=== PATIENT | female | born 1960 | race Caucasian/White ===

== ENCOUNTER 2016-10-13 04:52 | Emergency (ER) | payer BC ==
--- NOTE | 2016-10-13 06:17 | ER Document Report ---
[id number] Mode of Arrival: Ambulatory Information source: Patient Notes: 56-year-old female TRAVEL OUTSIDE OF THE [place] IN LAST 30 DAYS: No - HPI Onset: Just prior to arrival Onset/Duration: Sudden Quality of pain: No pain Severity: Mild Pain Level: Denies Associated symptoms: Weakness Exacerbated by: Denies Relieved by: Denies Similar symptoms previously: Yes Recently seen / treated by doctor: Yes - Related Data Allergies/Adverse Reactions: azithromycin [From Zithromax] Allergy (Unknown, Verified 06/10/16 08:25) Past Medical History - Social History Smoking Status: Never Smoker Cigarette use (# per day): No Chew tobacco use (# tins/day): No Smoking Education Provided: No Family History: CAD, Hypertension, Malignancy Patient has suicidal ideation: No Patient has homicidal ideation: No - Past Medical History Cardiac Medical History: Reports: Hx Coronary Artery Disease - Cardiac catheter showed 50% stenosis, Hx Heart Attack, Hx Hypercholesterolemia Denies: Hx Congestive Heart Failure, Hx DVT, Hx Pulmonary Embolism Pulmonary Medical History: Denies: Hx Asthma, Hx COPD Neurological Medical History: Denies: Hx Seizures Endocrine Medical History: Reports: Hx Diabetes Mellitus Type 1, Hx Diabetes Mellitus Type 2, Hx Hypothyroidism. Denies: Hx Hyperthyroidism Renal/ Medical History: Reports: Hx Ovarian Cysts - left side Malignancy Medical History: GI Medical History: Reports: Hx Gastroesophageal Reflux Disease. Denies: Hx Cirrhosis, Hx Hepatitis Musculoskeltal Medical History: Denies Hx Arthritis, Reports Hx Musculoskeletal Deformity, Reports Hx Musculoskeletal Trauma Skin Medical History: Denies Hx Eczema, Denies Hx Psoriasis Psychiatric Medical History: Reports: Hx Depression Traumatic Medical History: Reports: Hx Fractures - left wrist and toes and right knee Infectious Medical History: Denies: Hx Hepatitis Past Surgical History: Reports: Hx Cardiac Catheterization, Hx Section , Hx Gynecologic Surgery - Left oophorectomy, Hx Tubal Ligation - Immunizations Immunizations up to date: Yes Hx Diphtheria, Pertussis, Tetanus Vaccination: Yes - <10 years Hx Pneumococcal Vaccination: 07/17/11 Review of Systems - Review of Systems Notes: REVIEW OF SYSTEMS: CONSTITUTIONAL : Denies fever, chills, or sweats. Denies recent illness. EENT: Denies eye, ear, throat, or mouth pain or symptoms. Denies nasal or sinus congestion or discharge. Denies throat, tongue, or mouth swelling or difficulty swallowing. CARDIOVASCULAR: Denies chest pain. Denies palpitations or racing or irregular heart beat. Denies ankle edema. RESPIRATORY: Denies cough, cold, or chest congestion. Denies shortness of breath, difficulty breathing, or wheezing. GASTROINTESTINAL: Denies abdominal pain or distention. Denies nausea, vomiting , or diarrhea. Denies blood in vomitus, stools, or per rectum. Denies black, tarry stools. Denies constipation. GENITOURINARY: Denies difficulty urinating, painful urination, burning, frequency, blood in urine, or discharge. FEMALE GENITOURINARY: Denies vaginal bleeding, heavy or abnormal periods, irregular periods. Denies vaginal discharge or odor. MUSCULOSKELETAL: Denies back or neck pain or stiffness. Denies joint pain or swelling. SKIN: Denies rash, lesions or sores. HEMATOLOGIC : Denies easy bruising or bleeding. LYMPHATIC: Denies swollen, enlarged glands. NEUROLOGICAL: Admits weakness PSYCHIATRIC: Denies anxiety or stress. Denies depression, suicidal ideation, or homicidal ideation. ALL OTHER SYSTEMS REVIEWED AND NEGATIVE. Dictation was performed using [employer] voice recognition software PHYSICAL EXAMINATION: GENERAL: Well-appearing, well-nourished and in no acute distress. HEAD: Atraumatic, normocephalic. EYES: Pupils equal round and reactive to light, extraocular movements intact, conjunctiva are normal. ENT: Nares patent, oropharynx clear without exudates. Moist mucous membranes. NECK: Normal range of motion, supple without lymphadenopathy LUNGS: Breath sounds clear to auscultation bilaterally and equal. No wheezes rales or rhonchi. HEART: Regular rate and rhythm without murmurs ABDOMEN: Soft, nontender, nondistended abdomen. No guarding, no rebound. No masses appreciated. Insulin pump sensor an insulin pump noted which is turned off Female : deferred Musculoskeletal: Normal range of motion, no pitting or edema. No cyanosis. NEUROLOGICAL: Cranial nerves grossly intact. Normal speech, normal gait. Normal sensory, motor exams PSYCH: Normal mood, normal affect. SKIN: Warm, Dry, normal turgor, no rashes or lesions noted. Physical Exam - Vital signs Vitals: Temp Pulse Resp BP Pulse Ox 97.4 F 83 16 127/68 H 99 10/13/16 04:58 10/13/16 04:58 10/13/16 04:58 10/13/16 04:58 10/13/16 04:58 Course - Re-evaluation Re-evalutation: 10/13/16 06:14 It appears patient followed her physician's instructions and bolster self insulin which she normally does not do, found her with a glucose of 20, turned off her insulin pump gave her juice patient has been fed in the emergency department, she is not on any long-acting anti-diabetic medications. Patient states her ride is here and she wishes to go home and she promises she' ll call her physician when the office opens at 8 AM I will discharge the patient at her request, she states she must return immediately if her pressure continues to drop with is any other concerns After performing a Medical Screening Examination, I estimate there is LOW risk for ACUTE CORONARY SYNDROME, RESPIRATORY FAILURE, SEPSIS OR MENINGITIS, thus I consider the discharge disposition reasonable. The patient and I have discussed the diagnosis and risks, and we agree with discharging home with close follow- up. We also discussed returning to the Emergency Department immediately if new or worsening symptoms occur. We have discussed the symptoms which are most concerning (e.g., changing or worsening pain, trouble swallowing or breathing, neck stiffness, fever) that necessitate immediate return. 10/13/16 15:39 - Vital Signs Vital signs: Temp Pulse Resp BP Pulse Ox 97.4 F 84 16 124/62 100 10/13/16 04:58 10/13/16 06:17 10/13/16 06:17 10/13/16 06:17 10/13/16 06:17 - Laboratory Laboratory results interpreted by me: 10/13/16 10/13/16 05:00 06:10 POC Glucose 64 L 197 H Discharge - Discharge Clinical Impression: Hypoglycemia Complication of insulin pump Qualifiers: Device complication type: mechanical Mechanical complication type: other Encounter type: initial encounter Qualified Code(s): T85.694A - Other mechanical complication of insulin pump, initial encounter Condition: Stable Disposition: HOME, SELF-CARE Additional Instructions: Please speak with your physician today or return immediately if there is any other concerns at all Referrals: GURINDER MENG MD [Primary Care Provider] - Follow up as needed
[2016-10-13 06:23] VITALS: BP 124/62
== END 2016-10-13 06:32 | disposition home or self-care (01) ==
LOC: ER 04:52
DX: E11.649 Type 2 diabetes mellitus with hypoglycemia without coma (principal); T85.694A Other mechanical complication of insulin pump, initial encounter; R53.1 Weakness; Z79.4 Long term (current) use of insulin; Z88.3 Allergy status to other anti-infective agents; Z96.41 Presence of insulin pump (external) (internal); E78.00 Pure hypercholesterolemia, unspecified; I25.10 Atherosclerotic heart disease of native coronary artery without angina pectoris; I25.2 Old myocardial infarction; Z98.51 Tubal ligation status
CPT/HCPCS: 82962; 99284

== ENCOUNTER 2016-11-01 10:01 | Emergency (ER) | payer MEDICARE, BC ==
[2016-11-01] MEDS ORDERED: ONDANSETRON 4 MG TAB.RAPDIS PO ONE (11:39)
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
[2016-11-01] MEDS ORDERED: NORMAL SALINE 1000 ML 1,000 ML IV ONE ×2 (12:02→14:54)
[2016-11-01 12:24] LABS: HEMATOCRIT 40.4 % (36.0-47.0); HEMOGLOBIN 13.7 g/dL (12.0-15.5); HGB HCT DIFFERENCE 0.7; MEAN CORPUSCULAR HEMOGLOBIN 30.9 pg (27.0-33.4); MEAN CORPUSCULAR HGB CONC 33.8 g/dL (32.0-36.0); MEAN CORPUSCULAR VOLUME 91 fl (80-97); RED BLOOD COUNT 4.43 10^6/uL (3.72-5.28); RED CELL DISTRIBUTION WIDTH 13.7 % (11.5-14.0); WHITE BLOOD COUNT 5.4 10^3/uL (4.0-10.5)
[2016-11-01 12:43] LABS: BASOPHILS % (MANUAL) 1 % (0-2); EOSINOPHILS % (MANUAL) 1 % (0-6); LYMPHOCYTES % (MANUAL) 31 % (13-45); TOTAL CELLS COUNTED 100
[2016-11-01 12:44] LABS: RBC MORPHOLOGY COMMENT NORMO-CYTIC/CHROMIC
[2016-11-01 12:47] LABS: ALANINE AMINOTRANSFERASE 28 U/L (9-52); ALBUMIN 3.9 g/dL (3.5-5.0); ALKALINE PHOSPHATASE 76 U/L (38-126); ANION GAP 13 (5-19); ASPARTATE AMINO TRANSFERASE 42 U/L (14-36); BILIRUBIN,TOTAL 1.2 mg/dL (0.2-1.3); BLOOD UREA NITROGEN 13 mg/dL (7-20); CALCIUM 9.2 mg/dL (8.4-10.2); CARBON DIOXIDE 22 mmol/L (22-30); CHLORIDE 99 mmol/L (98-107); CREATININE RESULT 0.71 mg/dL (0.52-1.25); GLUCOSE 119 mg/dL (75-110); LIPASE 35.7 U/L (23-300); POTASSIUM 4.5 mmol/L (3.6-5.0); SODIUM 133.5 mmol/L (137-145); TOTAL PROTEIN 6.5 g/dL (6.3-8.2)
[2016-11-01 14:34] LABS: VENOUS BLOOD BASE EXCESS -1.3 mmol/L; VENOUS BLOOD HCO3 23.4 mmol/L (20-32); VENOUS BLOOD PCO2 39.2 mmHg (35-63); VENOUS BLOOD PH 7.39 (7.30-7.42)
[2016-11-01 15:19] LABS: APPEARANCE,URINE CLEAR; BILIRUBIN,URINE NEGATIVE (NEGATIVE); GLUCOSE, URINE >=500 mg/dL (NEGATIVE); KETONES,URINE 20 mg/dL (NEGATIVE); LEUKOCYTE ESTERASE,URINE NEGATIVE (NEGATIVE); NITRITE,URINE NEGATIVE (NEGATIVE); PROTEIN,URINE NEGATIVE (NEGATIVE); URINE SPECIFIC GRAVITY 1.014; UROBILINOGEN,URINE NEGATIVE mg/dL (<2.0)
[2016-11-01] MEDS ORDERED: DEXTROSE 50%-WATER 25 GM/50 ML DISP.SYRIN IV ONE ×2 (16:13)
[2016-11-01] MEDS ORDERED: ONDANSETRON HCL INJ/PF 4 MG/2 ML SDV ONE (16:17)
[2016-11-01] MEDS ORDERED: ONDANSETRON HCL INJ/PF 4 MG/2 ML SDV IV ONE (16:17)
[2016-11-01 17:52] VITALS: BP 106/61
== END 2016-11-01 17:45 | disposition home or self-care (01) ==
LOC: ER 10:01
DX: R11.2 Nausea with vomiting, unspecified (principal); E10.9 Type 1 diabetes mellitus without complications; E27.1 Primary adrenocortical insufficiency; K21.9 Gastro-esophageal reflux disease without esophagitis; R53.1 Weakness; R53.81 Other malaise; I25.10 Atherosclerotic heart disease of native coronary artery without angina pectoris; E78.00 Pure hypercholesterolemia, unspecified; E03.9 Hypothyroidism, unspecified; I25.2 Old myocardial infarction; Z98.51 Tubal ligation status; Z96.41 Presence of insulin pump (external) (internal); Z88.3 Allergy status to other anti-infective agents
CPT/HCPCS: 99284; 96361; 51701; 96374; 96375; 36415; 82962; 83690; 85025; 80053; 81001; 82803; J3490; A9270; J2405; J7030; S0119

== ENCOUNTER 2016-12-03 14:30 | Inpatient (IN) | payer MEDICARE, BC ==
--- NOTE | 2016-12-03 14:53 | ER Document Report ---
ED Medical Screen (RME) - General Chief Complaint: Nausea/Vomiting Stated Complaint: WEAKNESS TRAVEL OUTSIDE OF THE [place] IN LAST 30 DAYS: No - HPI Patient complains to provider of: nausea vomiting elevated blood sugar Notes: 12/03/16 14:52 Patient with history of asthma disease and multiple visits for DKA. Patient will sugar greater than 500 patient tachycardic hypotensive here patient will be made a yellow and placed back in the main ER - Related Data Allergies/Adverse Reactions: azithromycin [From Zithromax] Allergy (Unknown, Verified 12/03/16 14:39) Past Medical History - Past Medical History Cardiac Medical History: Reports: Hx Coronary Artery Disease - Cardiac catheter showed 50% stenosis, Hx Heart Attack, Hx Hypercholesterolemia Denies: Hx Congestive Heart Failure, Hx DVT, Hx Pulmonary Embolism Pulmonary Medical History: Denies: Hx Asthma, Hx COPD Neurological Medical History: Denies: Hx Seizures Endocrine Medical History: Reports: Hx Diabetes Mellitus Type 1, Hx Diabetes Mellitus Type 2, Hx Hypothyroidism. Denies: Hx Hyperthyroidism Renal/ Medical History: Reports: Hx Ovarian Cysts - left side. Denies: Hx Peritoneal Dialysis Malignancy Medical History: GI Medical History: Reports: Hx Gastroesophageal Reflux Disease. Denies: Hx Cirrhosis, Hx Hepatitis Musculoskeltal Medical History: Denies Hx Arthritis, Reports Hx Musculoskeletal Deformity, Reports Hx Musculoskeletal Trauma Skin Medical History: Denies Hx Eczema, Denies Hx Psoriasis Psychiatric Medical History: Reports: Hx Depression Traumatic Medical History: Reports: Hx Fractures - left wrist and toes and right knee Infectious Medical History: Denies: Hx Hepatitis Past Surgical History: Reports: Hx Cardiac Catheterization, Hx Section , Hx Gynecologic Surgery - Left oophorectomy, Hx Tubal Ligation - Immunizations Immunizations up to date: Yes Hx Diphtheria, Pertussis, Tetanus Vaccination: Yes - <10 years Review of Systems - Review of Systems Constitutional: Other - Nausea vomiting elevated blood sugar Physical Exam - Vital signs Vitals: Temp Pulse Resp BP 97.5 F 111 H 19 77/51 L 12/03/16 14:41 12/03/16 14:41 12/03/16 14:41 12/03/16 14:41 - Cardiovascular Rhythm: Tachycardia Heart sounds: Normal auscultation Course - Vital Signs Vital signs: Temp Pulse Resp BP Pulse Ox 97.5 F 111 H 19 77/51 L 12/03/16 14:41 12/03/16 14:41 12/03/16 14:41 12/03/16 14:41
[2016-12-03 15:37] LABS: ABSOLUTE BASOPHILS # (AUTO) 0.1 10^3/uL (0.0-0.2); ABSOLUTE LYMPHOCYTES (AUTO) 1.1 10^3/uL (0.5-4.7); ABSOLUTE MONOCYTES (AUTO) 0.6 10^3/uL (0.1-1.4); ABSOLUTE NEUT (AUTO) 14.7 10^3/uL (1.7-8.2); BASOPHILS % (AUTO) 0.3 % (0-2); EOSINOPHILS % (AUTO) 0.2 % (0-6); HEMATOCRIT 39.3 % (36.0-47.0); HEMOGLOBIN 12.6 g/dL (12.0-15.5); HGB HCT DIFFERENCE -1.5; LYMPHOCYTES % (AUTO) 6.4 % (13-45); MEAN CORPUSCULAR VOLUME 97 fl (80-97); MONOCYTES % (AUTO) 3.7 % (3-13); RED BLOOD COUNT 4.05 10^6/uL (3.72-5.28); RED CELL DISTRIBUTION WIDTH 13.7 % (11.5-14.0); SEGMENTED NEUTROPHILS % (AUTO) 89.4 % (42-78); WHITE BLOOD COUNT 16.5 10^3/uL (4.0-10.5)
[2016-12-03 15:40] LABS: VENOUS BLOOD BASE EXCESS -9.8 mmol/L; VENOUS BLOOD HCO3 17.7 mmol/L (20-32); VENOUS BLOOD PCO2 44.9 mmHg (35-63); VENOUS BLOOD PH 7.21 (7.30-7.42)
[2016-12-03 15:45] LABS: PROTHROMBIN TIME 13.2 SEC (11.4-15.4)
[2016-12-03 15:57] LABS: ALANINE AMINOTRANSFERASE 33 U/L (9-52); ALBUMIN 3.7 g/dL (3.5-5.0); ALKALINE PHOSPHATASE 73 U/L (38-126); ASPARTATE AMINO TRANSFERASE 44 U/L (14-36); BILIRUBIN,DIRECT 0.4 mg/dL (0.0-0.4); BILIRUBIN,TOTAL 1.1 mg/dL (0.2-1.3); BLOOD UREA NITROGEN 12 mg/dL (7-20); CALCIUM 9.5 mg/dL (8.4-10.2); CREATINE KINASE 31 U/L (30-135); CREATININE RESULT 0.72 mg/dL (0.52-1.25); LIPASE 49.2 U/L (23-300); MAGNESIUM 1.7 mg/dL (1.6-2.3); POTASSIUM 4.7 mmol/L (3.6-5.0); TOTAL PROTEIN 5.7 g/dL (6.3-8.2)
--- NOTE | 2016-12-03 16:01 | ER Document Report ---
ED General - General Mode of Arrival: Ambulatory Information source: Patient TRAVEL OUTSIDE OF THE [place] IN LAST 30 DAYS: No - HPI Patient complains to provider of: Abdominal pain and Vomiting Onset: This afternoon Associated symptoms: Other - see notes above <WILLIS GUERRA - Last Filed: 12/03/16 18:18> <JL MAC - Last Filed: 12/03/16 19:34> - General Chief Complaint: Nausea/Vomiting Stated Complaint: WEAKNESS Notes: 56 year old female with history of Celiac's and Arthur's disease presents to the ED complaining of vomiting and abdominal pain that started earlier today. Patient explains that 2 days ago, she was seen by EMT because of hypoglycemia. Yesterday, the patient began to feel bad, but woke up this morning better. Earlier this afternoon, the patient suddenly started having coughing spells and vomiting episodes secondary to the coughing. Patient denies dysuria or back pain. Patient explains that this might be an addisonian crisis. (WILLIS GUERRA) - Related Data Allergies/Adverse Reactions: azithromycin [From Zithromax] Allergy (Unknown, Verified 12/03/16 14:39) Past Medical History - General Information source: Patient - Social History Smoking Status: Unknown if Ever Smoked Family History: CAD, Hypertension, Malignancy Patient has suicidal ideation: No Patient has homicidal ideation: No - Past Medical History Cardiac Medical History: Reports: Hx Coronary Artery Disease - Cardiac catheter showed 50% stenosis, Hx Heart Attack, Hx Hypercholesterolemia Pulmonary Medical History: Endocrine Medical History: Reports: Hx Diabetes Mellitus Type 1, Hx Diabetes Mellitus Type 2, Hx Hypothyroidism, Other - Arthur's Disease Renal/ Medical History: Reports: Hx Ovarian Cysts - left side Malignancy Medical History: GI Medical History: Reports: Hx Gastroesophageal Reflux Disease Musculoskeltal Medical History: Reports Hx Musculoskeletal Deformity, Reports Hx Musculoskeletal Trauma Psychiatric Medical History: Reports: Hx Depression Traumatic Medical History: Reports: Hx Fractures - left wrist and toes and right knee Infectious Medical History: Past Surgical History: Reports: Hx Cardiac Catheterization, Hx Section , Hx Gynecologic Surgery - Left oophorectomy, Hx Tubal Ligation - Immunizations Immunizations up to date: Yes Hx Diphtheria, Pertussis, Tetanus Vaccination: Yes - <10 years Hx Pneumococcal Vaccination: 07/17/11 <WILLIS GUERRA - Last Filed: 12/03/16 18:18> <JL MAC - Last Filed: 12/03/16 19:34> - Medical History Notes: History of Celiac Disease (WILLIS GUERRA) Review of Systems - Review of Systems Constitutional: No symptoms reported EENT: No symptoms reported Cardiovascular: No symptoms reported Respiratory: See HPI, Cough Gastrointestinal: See HPI, Abdominal pain, Vomiting Genitourinary: No symptoms reported. denies: Dysuria, Flank pain Female Genitourinary: No symptoms reported Musculoskeletal: No symptoms reported. denies: Back pain Skin: No symptoms reported Hematologic/Lymphatic: No symptoms reported Neurological/Psychological: No symptoms reported -: Yes All other systems reviewed and negative <WILLIS GUERRA - Last Filed: 12/03/16 18:18> Physical Exam - Vital signs Interpretation: Hypotensive - General General appearance: Alert In distress: None - HEENT Head: Normocephalic, Atraumatic Eyes: Normal Extraocular movements intact: Yes Pupils: PERRL Mucous membranes: Dry - Respiratory Respiratory status: No respiratory distress Breath sounds: Normal - Cardiovascular Rhythm: Regular Heart sounds: Normal auscultation - Abdominal Inspection: Normal - Back Back: Normal - Extremities General upper extremity: Normal inspection, Normal ROM General lower extremity: Normal inspection, Normal ROM - Neurological Neuro grossly intact: Yes Cognition: Normal Orientation: AAOx4 Covert Coma Scale Eye Opening: Spontaneous Covert Coma Scale Verbal: Oriented Covert Coma Scale Motor: Obeys Commands Covert Coma Scale Total: 15 Speech: Normal - Psychological Associated symptoms: Normal affect, Normal mood - Skin Skin Temperature: Warm Skin Moisture: Dry Skin Color: Pale - Plascencia colored <WILLIS GUERRA - Last Filed: 12/03/16 18:18> Course - Laboratory Result Diagrams: 12/03/16 15:05 12/03/16 15:05 - Consults Dr. Vasquez Time consulted: 16:40 Dr. More Time consulted: 16:42 <WILLIS GUERRA - Last Filed: 12/03/16 18:18> - Laboratory Result Diagrams: 12/03/16 15:05 12/03/16 15:05 <JL MAC - Last Filed: 12/03/16 19:34> - Re-evaluation Re-evalutation: 12/03/16 Patient is a 56-year-old female who presents with hyperglycemia and hypotension. Patient with history of Craig's. Patient had a peripheral line in place, IV fluids initiated, and central line placed by general surgery in consult. Patient was discussed with the hospitalist service and will require ICU admission. Solu-Cortef ordered. Insulin will be started after central line is placed and patient has received her fluid bolus. Patient is awake, alert, conversive, and does not appear as sick as her blood work with implied. Patient was discussed with Dr. Vasquez and will be admitted to the ICU. (JL MAC) - Vital Signs Vital signs: Temp Pulse Resp BP Pulse Ox 97.5 F 111 H 22 H 124/74 98 12/03/16 14:41 12/03/16 14:41 12/03/16 18:01 12/03/16 17:48 12/03/16 17:48 - Laboratory Laboratory results interpreted by me: 12/03/16 12/03/16 12/03/16 15:05 15:05 15:05 WBC 16.5 H Seg Neutrophils % 89.4 H Lymphocytes % 6.4 L Absolute Neutrophils 14.7 H VBG pH 7.21 L VBG HCO3 17.7 L Sodium 136.9 L Carbon Dioxide 14 L Anion Gap 22 H Glucose 665 H* Lactic Acid AST 44 H Total Protein 5.7 L 12/03/16 15:05 WBC Seg Neutrophils % Lymphocytes % Absolute Neutrophils VBG pH VBG HCO3 Sodium Carbon Dioxide Anion Gap Glucose Lactic Acid 4.7 H AST Total Protein - Consults Dr. Vasquez Reason for consultation: 12/03/16 16:40 Patient was discussed with Dr. Vasquez and agrees to admit the patient to ICU. (WILLIS GUERRA) Dr. More Reason for consultation: 12/03/16 16:42 Patient was discussed with Dr. More and explained that the patient has a line in her foot (history of diabetes), but will require a central line. Dr. More agrees to do the central line. (WILLIS GUERRA) Critical Care Note - Critical Care Note Total time excluding time spent on procedures (mins): 60 - evaluation and management of hypotension, adrenal crisis, hyperglycemia, coordination of admission, coordination with surgeon, counseling of patient <JL MAC - Last Filed: 12/03/16 19:34> Discharge <WILLIS GUERRA - Last Filed: 12/03/16 18:18> - Discharge Admitting Provider: Nikos Pedro Unit Admitted: ICU <JL MAC - Last Filed: 12/03/16 19:34> - Discharge Clinical Impression: Craig disease, Hyperglycemia Hypotension (arterial) Qualifiers: Hypotension type: other hypotension type Qualified Code(s): I95.89 - Other hypotension Diabetes mellitus type I Qualifiers: Diabetes mellitus complication status: with ketoacidosis Diabetes mellitus complication detail: without coma Qualified Code(s): E10.10 - Type 1 diabetes mellitus with ketoacidosis without coma Nausea and vomiting Qualifiers: Vomiting type: unspecified Vomiting Intractability: non-intractable Qualified Code(s): R11.2 - Nausea with vomiting, unspecified Condition: Stable Disposition: ADMITTED INPATIENT Scribe Attestation: 12/03/16 19:34 I personally performed the services described in the documentation, reviewed and edited the documentation which was dictated to the scribe in my presence, and it accurately records my words and actions. (JL MAC) Scribe Documentation - Scribe Written by Karen:: Karen Ramirez, 12/03/2016 1733 acting as scribe for :: Jesse <WILLIS GUERRA - Last Filed: 12/03/16 18:18>
[2016-12-03 16:11] LABS: CREATINE KINASE MB < 0.22 ng/mL (<4.55); TROPONIN I < 0.012 ng/mL
[2016-12-03 16:14] LABS: CARBON DIOXIDE 14 mmol/L (22-30); CHLORIDE 101 mmol/L (98-107); SODIUM 136.9 mmol/L (137-145)
[2016-12-03 16:19] LABS: ANION GAP 22 (5-19)
[2016-12-03 16:22] LABS: GLUCOSE 665 mg/dL (75-110)
[2016-12-03] MEDS ORDERED: HYDROCORTISONE SOD SUCCINATE INJ/PF 100 MG/2 ML SDV IV ONE (16:25)
[2016-12-03] MEDS: NORMAL SALINE 1000 ML 1,000 ML IV PRN ×2 (16:43→17:50)
[2016-12-03] MEDS ORDERED: NORMAL SALINE 1000 ML 2,000 ML IV ONE (17:18)
[2016-12-03] MEDS ORDERED: GLUCAGON,HUMAN RECOMB 1 MG INJ IM PRN (17:19)
[2016-12-03] MEDS ORDERED: NORMAL SALINE 100 ML with INSULIN REGULAR, HUMAN 100 UNIT IV PRN ×2 (17:19)
[2016-12-03] MEDS ORDERED: DEXTROSE 50%-WATER 25 GM/50 ML DISP.SYRIN IV PRN ×2 (17:19)
[2016-12-03] MEDS ORDERED: DEXTROSE 40% GEL 15 GM TUBE PO PRN ×2 (17:19)
[2016-12-03] MEDS ORDERED: NORMAL SALINE 1000 ML 1,000 ML IV PRN (17:19)
--- NOTE | 2016-12-03 17:40 | PDOC H&P ---
History of Present Illness Admission Date/PCP: 12/03/16 17:22 GURINDER MENG MD Patient complains of: vomiting generalised weakness History of Present Illness: TAMAR PAULSON is a 56 year old female with history of Diabetes type I , panhypopituitarism and Arthur's disease presents to the ED complaining of vomiting and abdominal pain that started earlier today. Patient explains that 2 days ago, she was seen by EMT because of hypoglycemia. Yesterday, the patient began to feel bad, but woke up this morning better. Earlier this afternoon, the patient suddenly started having coughing spells and vomiting episodes secondary to the coughing. Patient denies dysuria or back pain. Upon evaluation in the ED she was profoundly hypotensive with a blood sugar over 600 and metabolic acidosis She was subsequently admitted to ICU Hydrocortisone , IV fluids and an insulin drip were initiated Past Medical History Cardiac Medical History: Reports: Coronary Artery Disease - Cardiac catheter showed 50% stenosis, Myocardial Infarction, Hyperlipidema Denies: Congestive Heart Failure, DVT, Pulmonary Embolism Pulmonary Medical History: Denies: Asthma, Chronic Obstructive Pulmonary Disease (COPD) Neurological Medical History: Denies: Seizures Endocrine Medical History: Reports: Diabetes Mellitus Type 1, Diabetes Mellitus Type 2, Hypothyroidism, Other - [place]'s Disease panhypopituitarism Denies: Hyperthyroidism Malignancy Medical History: GI Medical History: Reports: Gastroesophageal Reflux Disease Denies: Cirrhosis, Hepatitis Musculoskeltal Medical History: Denies: Arthritis Skin Medical History: Denies: Eczema, Psoriasis Psychiatric Medical History: Reports: Depression Hematology: Reports: Anemia Denies: Hemophilia, Sickle Cell Disease Infectious Medical History: Past Surgical History Past Surgical History: Reports: Amputation, Cardiac Catheterization, Section, Tubal Ligation Social History Information Source: Patient Smoking Status: Unknown if Ever Smoked Frequency of Alcohol Use: None Hx Recreational Drug Use: No Drugs: None Hx Prescription Drug Abuse: No - Advance Directive Resuscitation Status: Full Code Family History Family History: CAD, Hypertension, Malignancy Parental Family History Reviewed: Yes Children Family History Reviewed: Yes Sibling(s) Family History Reviewed.: Yes Medication/Allergy Home Medications: Cyclobenzaprine HCl [Amrix 15 mg Capsule Sustained Release] 1 tab PO DAILY 02/22 Dextrose [Glucose] 4 gm PO PRN PRN 02/23/16 Fludrocortisone Acetate [Florinef 0.1 mg Tablet] 0.2 mg PO DAILY tablet Levothyroxine Sodium [Synthroid] 125 mcg PO DAILY 02/23/16 Nitroglycerin [Nitrostat 0.4 mg (1/150 Gr) Tabs 25/Bottle] 1 tab SL Q5MP PRN bottle 02/23/16 Insulin Aspart [Novolog Insulin (Aspart) 100 unit/mL] 200 units PUMP Q3DAYS 08/18 Metoclopramide HCl [Reglan] 10 mg PO TID PRN 04/14/16 Alprazolam [Xanax 0.25 mg Tablet] 0.25 mg PO BID PRN #0 04/15/16 Montelukast Sodium [Singulair 10 mg Tablet] 10 mg PO QHS #7 tablet 04/15/16 Atorvastatin Calcium [Lipitor 80 mg Tablet] 80 mg PO QHS 06/07/16 Fluoxetine HCl [Prozac] 40 mg PO DAILY 06/07/16 Temazepam [Restoril 7.5 mg Capsule] 7.5 mg PO HSP PRN 06/07/16 Acetaminophen [Tylenol 325 mg Tablet] 650 mg PO Q4HP PRN tablet 06/09/16 Levofloxacin [Levaquin 750 mg Tablet] 750 mg PO QPM #7 tablet 06/09/16 Magnesium Oxide [Mag-Ox 400 mg Tablet] 400 mg PO BID #60 tablet 06/09/16 Potassium Chloride [Klor-Con 10 Meq Tablet.sa] 20 meq PO Q12 #60 tablet.sa 06/09 Ondansetron [Zofran Odt 4 mg Tablet] 1 - 2 tab PO Q4HP PRN 06/10/16 Aspirin [Ecotrin 81 mg EC Tablet] 81 mg PO DAILY tabec 06/14/16 Calcium Carbonate/Vitamin D3 [Os-Che[place] 250 mg with Vitamin D 125 Units] 1 tab PO BID tablet 06/14/16 Hydrocortisone [Cortef 10 mg Tablet] 25 mg PO Q8 #120 tablet 06/14/16 Levofloxacin [Levaquin 750 mg Tablet] 750 mg PO DAILY tablet 06/14/16 Megestrol Acetate [Megace 20 mg Tablet] 40 mg PO BID #60 tablet 06/14/16 Ondansetron [Zofran Odt 4 mg Tablet] 1 - 2 tab PO Q4H PRN #15 tab.rapdis Allergies/Adverse Reactions: azithromycin [From Zithromax] Allergy (Unknown, Verified 12/03/16 14:39) Review of Systems ROS unobtainable: Due to mental status - too ill to answer questions vomitingon and off Physical Exam Vital Signs: Temp Pulse Resp BP Pulse Ox 97.5 F 111 H 19 77/51 L 99 12/03/16 14:41 12/03/16 14:41 12/03/16 14:41 12/03/16 14:41 12/03/16 16:40 General appearance: PRESENT: cooperative, severe distress, thin Head exam: PRESENT: atraumatic, normocephalic Eye exam: PRESENT: conjunctiva pink, EOMI, PERRLA. ABSENT: scleral icterus Mouth exam: PRESENT: dry mucosa Neck exam: ABSENT: carotid bruit, JVD, lymphadenopathy, thyromegaly Respiratory exam: PRESENT: clear to auscultation kelsey. ABSENT: rales, rhonchi, wheezes Cardiovascular exam: PRESENT: RRR. ABSENT: diastolic murmur, rubs, systolic murmur Pulses: PRESENT: normal dorsalis pedis pul GI/Abdominal exam: PRESENT: normal bowel sounds, soft. ABSENT: distended, guarding, mass, organolmegaly, rebound, tenderness Extremities exam: PRESENT: full ROM. ABSENT: calf tenderness, clubbing, pedal edema Neurological exam: PRESENT: awake, CN II-XII grossly intact Psychiatric exam: PRESENT: anxious Skin exam: PRESENT: dry, intact, warm. ABSENT: cyanosis, rash Results Laboratory Results: 12/03/16 15:05 12/03/16 15:05 MCV 97 fl (80-97) 12/03/16 15:05 MCH 31.0 pg (27.0-33.4) 12/03/16 15:05 MCHC 32.0 g/dL (32.0-36.0) 12/03/16 15:05 RDW 13.7 % (11.5-14.0) 12/03/16 15:05 Seg Neutrophils % 89.4 % (42-78) H 12/03/16 15:05 Lymphocytes % 6.4 % (13-45) L 12/03/16 15:05 Monocytes % 3.7 % (3-13) 12/03/16 15:05 Eosinophils % 0.2 % (0-6) 12/03/16 15:05 Basophils % 0.3 % (0-2) 12/03/16 15:05 Absolute Neutrophils 14.7 10^3/uL (1.7-8.2) H 12/03/16 15:05 Absolute Lymphocytes 1.1 10^3/uL (0.5-4.7) 12/03/16 15:05 Absolute Monocytes 0.6 10^3/uL (0.1-1.4) 12/03/16 15:05 Absolute Eosinophils 0.0 10^3/uL (0.0-0.6) 12/03/16 15:05 Absolute Basophils 0.1 10^3/uL (0.0-0.2) 12/03/16 15:05 VBG pH 7.21 (7.30-7.42) L 12/03/16 15:05 VBG pCO2 44.9 mmHg (35-63) 12/03/16 15:05 VBG HCO3 17.7 mmol/L (20-32) L 12/03/16 15:05 VBG Base Excess -9.8 mmol/L 12/03/16 15:05 Chloride 101 mmol/L (98-107) 12/03/16 15:05 Carbon Dioxide 14 mmol/L (22-30) L 12/03/16 15:05 Anion Gap 22 (5-19) H 12/03/16 15:05 Est GFR ( Amer) > 60 (>60) 12/03/16 15:05 Est GFR (Non-Af Amer) > 60 (>60) 12/03/16 15:05 Glucose 665 mg/dL (75-110) H* 12/03/16 15:05 Lactic Acid 4.7 mmol/L (0.7-2.1) H 12/03/16 15:05 Calcium 9.5 mg/dL (8.4-10.2) 12/03/16 15:05 Magnesium 1.7 mg/dL (1.6-2.3) 12/03/16 15:05 Total Bilirubin 1.1 mg/dL (0.2-1.3) 12/03/16 15:05 AST 44 U/L (14-36) H 12/03/16 15:05 ALT 33 U/L (9-52) 12/03/16 15:05 Alkaline Phosphatase 73 U/L (38-126) 12/03/16 15:05 Total Protein 5.7 g/dL (6.3-8.2) L 12/03/16 15:05 Albumin 3.7 g/dL (3.5-5.0) 12/03/16 15:05 Lipase 49.2 U/L (23-300) 12/03/16 15:05 12/03/16 12/03/16 15:05 15:05 Creatine Kinase 31 CK-MB (CK-2) < 0.22 Troponin I < 0.012 EKG Comments: SINUS TACHYCARDIA [T0IN] . BORDERLINE T ABNORMALITIES, INFERIOR LEADS Assessment & Plan - Diagnosis (1) DKA (diabetic ketoacidoses) Qualifiers: Diabetes mellitus type: type 1 Is this a current diagnosis for this admission?: YesPlan: dKA protocole (2) Dehydration Is this a current diagnosis for this admission?: YesPlan: IV fluid boluses total 4000 ml then reevaluate needs (3) Hypovolemic shock Is this a current diagnosis for this admission?: YesPlan: hydrate (4) Full code status Is this a current diagnosis for this admission?: Yes (5) Metabolic acidosis Is this a current diagnosis for this admission?: YesPlan: PH over 7.2 - no need for bicarb drip (7) [place] disease Is this a current diagnosis for this admission?: YesPlan: replace with solucortef IV (8) Hypothyroidism Qualifiers: Hypothyroidism type: unspecified Qualified Code(s): E03.9 - Hypothyroidism, unspecified Is this a current diagnosis for this admission?: YesPlan: thyroid replacement - Time Time Spent with patient: admit ICU Time Spent: Greater than 70 Minutes - Inpatient Certification Based on my medical assessment, after consideration of the patient's comorbidities, presenting symptoms, or acuity I expect that the services needed warrant INPATIENT care.: Yes I certify that my determination is in accordance with my understanding of Medicare's requirements for reasonable and necessary INPATIENT services [42 CFR 412.3e].: Yes Medical Necessity: Need Close Monitoring Due to Risk of Patient Decompensation, Need For IV Fluids, Need For Continuous Telemetry Monitoring, Risk of Complication if Not Cared For in Hospital
[2016-12-03] MEDS ORDERED: ONDANSETRON HCL INJ/PF 4 MG/2 ML SDV ONE (17:48)
[2016-12-03] MEDS ORDERED: ONDANSETRON HCL INJ/PF 4 MG/2 ML SDV IV PRN (17:49)
[2016-12-03] MEDS ORDERED: INSULIN REG, HUMAN 100 UNIT/ML 3 ML VIAL (PYX) ONE (18:57)
--- NOTE | 2016-12-03 20:18 | OPERATIVE REPORT E ---
Operative Report NAME: TAMAR PAULSON : 1960 AGE: 56Y DATE OF SURGERY: 12/03/2016 ROOM: ED05 PREOPERATIVE DIAGNOSIS: Patient with poor IV access and patient with diabetic ketoacidosis, needed IV fluids and medications. OPERATION: Insertion of right internal jugular triple lumen catheter under ultrasound guidance. SURGEON: SOFIYA PERKINS M.D. ANESTHESIA: Local. PROCEDURE: The patient was placed in a slight Trendelenburg position and the right neck prepped and draped in the usual sterile fashion. With the use of ultrasound, the right internal jugular vein was then identified. This was subsequently punctured and a guidewire passed through the needle into the superior vena cava. The needle was removed and the entry was then enlarged with an 11 blade. A dilator was placed over the guidewire, then a triple lumen catheter inserted into the guidewire towards the superior vena cava. The catheter was then anchored to the skin with a 3-0 nylon. A Biopatch was then placed over the entry site and a transparent dressing placed over the triple lumen catheter entry site. A portable chest x-ray will be obtained for position of the catheter. The patient tolerated the procedure well. DICTATING PHYSICIAN: SOFIYA PERKINS M.D. [id number] PHY#: [id number] 2007 ID: [id number] JOB#: [id number] ACCT: [id number] cc:SOFIYA PERKINS M.D. >
[2016-12-03 20:31] LABS: BLOOD UREA NITROGEN 13 mg/dL (7-20); CARBON DIOXIDE 11 mmol/L (22-30); CREATININE RESULT 0.62 mg/dL (0.52-1.25); POTASSIUM 4.4 mmol/L (3.6-5.0)
[2016-12-03 20:42] LABS: CHLORIDE 111 mmol/L (98-107); SODIUM 143.2 mmol/L (137-145)
[2016-12-03 20:43] LABS: ANION GAP 21 (5-19)
[2016-12-03 20:44] LABS: GLUCOSE 484 mg/dL (75-110)
--- NOTE | 2016-12-03 21:13 | EKG REPORT ---
SEVERITY:- BORDERLINE ECG - SINUS TACHYCARDIA BORDERLINE T ABNORMALITIES, INFERIOR LEADS : Confirmed by: Rissa Ordaz MD 03-Dec-2016 21:12:00
[2016-12-03] MEDS: FAMOTIDINE INJ/PF 20 MG/2 ML SDV IV SCH (22:12)
[2016-12-03] MEDS: HYDROCORTISONE SOD SUCCINATE INJ/PF 100 MG/2 ML SDV IV SCH (22:23)
[2016-12-03 22:24] LABS: APPEARANCE,URINE CLEAR; BILIRUBIN,URINE NEGATIVE (NEGATIVE); GLUCOSE, URINE >=500 mg/dL (NEGATIVE); KETONES,URINE 20 mg/dL (NEGATIVE); LEUKOCYTE ESTERASE,URINE NEGATIVE (NEGATIVE); NITRITE,URINE NEGATIVE (NEGATIVE); PROTEIN,URINE NEGATIVE (NEGATIVE); UROBILINOGEN,URINE NEGATIVE mg/dL (<2.0)
[2016-12-04 00:01] LABS: ANION GAP 11 (5-19); BLOOD UREA NITROGEN 12 mg/dL (7-20); CHLORIDE 114 mmol/L (98-107); CREATININE RESULT 0.57 mg/dL (0.52-1.25); GLUCOSE 245 mg/dL (75-110); SODIUM 146.1 mmol/L (137-145)
[2016-12-04 00:18] LABS: CARBON DIOXIDE 21 mmol/L (22-30); POTASSIUM 3.2 mmol/L (3.6-5.0)
[2016-12-04] MEDS ORDERED: POTASSI CL 20 MEQ/D5-1/2NS 1L 1,000 ML IV PRN (00:20)
[2016-12-04] MEDS: POTASSI CL 20 MEQ/50 ML RIDER 50 ML IV SCH ×2 (00:50→02:11)
[2016-12-04] MEDS ORDERED: DEXTROSE 40% GEL 15 GM TUBE PO PRN ×2 (01:25→14:07)
[2016-12-04] MEDS ORDERED: DEXTROSE 40% GEL 15 GM TUBE X 2 PO PRN ×2 (01:25→14:07)
[2016-12-04] MEDS ORDERED: GLUCAGON,HUMAN RECOMB 1 MG INJ IM PRN ×2 (01:25→14:07)
[2016-12-04] MEDS ORDERED: INSULIN LISPRO 100 UNIT/ML 3 ML VIAL SUBCUT PRN (01:25)
[2016-12-04] MEDS ORDERED: DEXTROSE 50%-WATER SYRINGE 25 GM/50 ML DOSE IV PRN ×2 (01:25→14:07)
[2016-12-04] MEDS ORDERED: DEXTROSE 50%-WATER SYRINGE 12.5 GM/25 ML DOSE IV PRN ×2 (01:25→14:07)
[2016-12-04 03:22] LABS: ANION GAP 14 (5-19); BLOOD UREA NITROGEN 12 mg/dL (7-20); CALCIUM 7.8 mg/dL (8.4-10.2); CARBON DIOXIDE 15 mmol/L (22-30); CHLORIDE 116 mmol/L (98-107); CREATININE RESULT 0.61 mg/dL (0.52-1.25); GLUCOSE 306 mg/dL (75-110); SODIUM 145.2 mmol/L (137-145)
[2016-12-04] MEDS ORDERED: MORPHINE SULFATE 10 MG/ML INJ IV ONE ×2 (03:30→05:00)
[2016-12-04] MEDS ORDERED: ASPIRIN 81 MG TABLET, CHEWABLE PO ONE (03:35)
[2016-12-04 03:41] LABS: ARTERIAL BLOOD BASE EXCESS -10.6 mmol/L; ARTERIAL BLOOD O2 SATURATION 97.6 % (94-98)
[2016-12-04] MEDS ORDERED: PHENYLEPHRINE HCL INJ/PF 10 MG/1 ML SDV ONE ×2 (03:44→14:00)
[2016-12-04] MEDS ORDERED: CALCIUM GLUCONATE 1000 MG/10 ML INJ IV ONE ×2 (03:45→13:30)
[2016-12-04 03:49] LABS: POTASSIUM 4.4 mmol/L (3.6-5.0)
[2016-12-04] MEDS ORDERED: MORPHINE SULFATE 10 MG/ML INJ ONE (03:49)
[2016-12-04 04:08] LABS: TROPONIN I 0.062 ng/mL
[2016-12-04 04:09] LABS: CREATINE KINASE MB < 0.22 ng/mL (<4.55)
[2016-12-04] MEDS ORDERED: CALCIUM GLUCONATE 1,000 MG in DEXTROSE 5%-WATER 50 ML IV ONE ×2 (04:45→13:08)
[2016-12-04] MEDS: DEXTROSE 5%-WATER 250 ML with PHENYLEPHRINE HCL 40 MG IV PRN ×6 (05:12→22:23)
[2016-12-04] MEDS: PROMETHAZINE HCL INJ 25 MG/1 ML VIAL IV PRN ×2 (05:14→08:52)
[2016-12-04] MEDS ORDERED: LACTULOSE SYRUP 20 GM/30 ML UDCUP PR ONE (05:15)
[2016-12-04] MEDS ORDERED: LACTULOSE SYRUP 20 GM/30 ML UDCUP PO ONE (05:15)
[2016-12-04] MEDS: HYDROCORTISONE SOD SUCCINATE INJ/PF 100 MG/2 ML SDV IV SCH ×3 (05:17→21:17)
[2016-12-04] MEDS ORDERED: NORMAL SALINE 1000 ML 3,000 ML IV ONE (05:29)
[2016-12-04] MEDS ORDERED: LACTULOSE SYRUP 20 GM/30 ML UDCUP ONE (06:25)
[2016-12-04 07:10] LABS: HEMATOCRIT 30.1 % (36.0-47.0); HGB HCT DIFFERENCE -0.4; MEAN CORPUSCULAR HEMOGLOBIN 31.1 pg (27.0-33.4); MEAN CORPUSCULAR HGB CONC 32.7 g/dL (32.0-36.0); MEAN CORPUSCULAR VOLUME 95 fl (80-97); RED BLOOD COUNT 3.17 10^6/uL (3.72-5.28); RED CELL DISTRIBUTION WIDTH 13.7 % (11.5-14.0); WHITE BLOOD COUNT 28.6 10^3/uL (4.0-10.5)
[2016-12-04 07:33] LABS: ALANINE AMINOTRANSFERASE 35 U/L (9-52); ALBUMIN 2.4 g/dL (3.5-5.0); ALKALINE PHOSPHATASE 54 U/L (38-126); ANION GAP 18 (5-19); ASPARTATE AMINO TRANSFERASE 34 U/L (14-36); BILIRUBIN,DIRECT 0.3 mg/dL (0.0-0.4); BILIRUBIN,TOTAL 0.7 mg/dL (0.2-1.3); BLOOD UREA NITROGEN 12 mg/dL (7-20); CALCIUM 7.3 mg/dL (8.4-10.2); CHLORIDE 119 mmol/L (98-107); CREATININE RESULT 0.63 mg/dL (0.52-1.25); MAGNESIUM 1.3 mg/dL (1.6-2.3); SODIUM 146.6 mmol/L (137-145); TOTAL PROTEIN 4.3 g/dL (6.3-8.2)
[2016-12-04] MEDS ORDERED: NORMAL SALINE 1000 ML 1,000 ML IV ONE (07:36)
[2016-12-04 07:45] LABS: BAND NEUTROPHILS % (MANUAL) 3 % (3-5); BASOPHILS % (MANUAL) 0 % (0-2); EOSINOPHILS % (MANUAL) 0 % (0-6); LYMPHOCYTES % (MANUAL) 4 % (13-45); TOTAL CELLS COUNTED 100
[2016-12-04 07:47] LABS: CARBON DIOXIDE 10 mmol/L (22-30)
[2016-12-04 07:48] LABS: GLUCOSE 421 mg/dL (75-110)
[2016-12-04] MEDS ORDERED: 1/2 NORMAL SALINE 1,000 ML IV PRN (07:50)
[2016-12-04 07:51] LABS: BURR CELLS 1+; POIKILOCYTOSIS 1+; POLYCHROMASIA SLIGHT; TOXIC GRANULATION SLIGHT; TOXIC VACUOLATION PRESENT
[2016-12-04 07:53] LABS: HEMOGLOBIN 9.9 g/dL (12.0-15.5)
[2016-12-04] MEDS ORDERED: ENOXAPARIN SODIUM INJ 30 MG/0.3 ML DISP.SYRIN SUBCUT SCH (08:00)
--- NOTE | 2016-12-04 08:15 | PDOC PROGRESS REPORT ---
Subjective Progress Note for:: 12/04/16 Subjective:: Patient's condition worsened during the night ;she developed increasing abdominal pain; tachycardia and hypotension persisted and Lupillo-Neosynephrine drip was initiated She to be sedated with morphine This morning the abdominal pain is still severe patient is somewhat altered, does not answer questions appropriately Physical Exam Vital Signs: Temp Pulse Resp BP Pulse Ox 98.7 F 128 H 25 H 101/56 L 100 12/04/16 06:00 12/04/16 06:00 12/04/16 06:28 12/04/16 06:28 12/04/16 06:28 Intake & Output 12/03/16 12/04/16 12/05/16 00:59 00:59 00:59 Intake Total 4187 Output Total 900 860 Balance -900 3327 Weight 48.4 kg 48.4 kg General appearance: PRESENT: severe distress, thin, other - She looks extremely ill with altered mental status Head exam: PRESENT: atraumatic, normocephalic Eye exam: PRESENT: conjunctiva pale, EOMI, PERRLA. ABSENT: scleral icterus Neck exam: ABSENT: carotid bruit, JVD, lymphadenopathy, thyromegaly Respiratory exam: PRESENT: symmetrical, wheezes. ABSENT: accessory muscle use Cardiovascular exam: PRESENT: tachycardia Pulses: PRESENT: normal dorsalis pedis pul GI/Abdominal exam: PRESENT: firm, guarding, rebound, tenderness - In all quadrants Extremities exam: PRESENT: full ROM. ABSENT: calf tenderness, clubbing, pedal edema Neurological exam: PRESENT: altered, CN II-XII grossly intact Skin exam: PRESENT: dry, intact, warm. ABSENT: cyanosis, rash Results Laboratory Results: 12/04/16 06:50 12/04/16 06:50 12/03/16 12/03/16 12/03/16 20:00 20:00 20:15 WBC RBC Hgb Hct MCV MCH MCHC RDW Plt Count Seg Neutrophils % Lymphocytes % Monocytes % Eosinophils % Basophils % Absolute Neutrophils Absolute Lymphocytes Absolute Monocytes Absolute Eosinophils Absolute Basophils Carbonic Acid HCO3/H2CO3 Ratio ABG pH ABG pCO2 ABG pO2 ABG HCO3 ABG O2 Saturation ABG Base Excess FiO2 Sodium 143.2 Potassium 4.4 Chloride 111 H Carbon Dioxide 11 L Anion Gap 21 H BUN 13 Creatinine 0.62 Est GFR ( Amer) > 60 Est GFR (Non-Af Amer) > 60 Glucose 484 H* Lactic Acid 2.3 H Calcium 8.0 L Magnesium Total Bilirubin AST ALT Alkaline Phosphatase Total Protein Albumin Lipase TSH Urine Color STRAW Urine Appearance CLEAR Urine pH 5.0 Ur Specific [place] 1.020 Urine Protein NEGATIVE Urine Glucose (UA) >=500 H Urine Ketones 20 H Urine Blood NEGATIVE Urine Nitrite NEGATIVE Ur Leukocyte Esterase NEGATIVE Urine WBC (Auto) 0 Urine RBC (Auto) 0 12/03/16 12/04/16 12/04/16 23:30 02:55 03:20 WBC RBC Hgb Hct MCV MCH MCHC RDW Plt Count Seg Neutrophils % Lymphocytes % Monocytes % Eosinophils % Basophils % Absolute Neutrophils Absolute Lymphocytes Absolute Monocytes Absolute Eosinophils Absolute Basophils Carbonic Acid 0.75 L HCO3/H2CO3 Ratio 18:1 ABG pH 7.35 ABG pCO2 24.9 L ABG pO2 101.7 H ABG HCO3 13.6 L ABG O2 Saturation 97.6 ABG Base Excess -10.6 FiO2 2 L Sodium 146.1 H 145.2 H Potassium 3.2 L D 4.4 D Chloride 114 H 116 H Carbon Dioxide 21 L D 15 L Anion Gap 11 14 BUN 12 12 Creatinine 0.57 0.61 Est GFR ( Amer) > 60 > 60 Est GFR (Non-Af Amer) > 60 > 60 Glucose 245 H 306 H Lactic Acid Calcium 8.0 L 7.8 L Magnesium Total Bilirubin AST ALT Alkaline Phosphatase Total Protein Albumin Lipase TSH Urine Color Urine Appearance Urine pH Ur Specific [place] Urine Protein Urine Glucose (UA) Urine Ketones Urine Blood Urine Nitrite Ur Leukocyte Esterase Urine WBC (Auto) Urine RBC (Auto) 12/04/16 12/04/16 12/04/16 06:50 06:50 06:50 WBC 28.6 H RBC 3.17 L Hgb 9.9 L D Hct 30.1 L MCV 95 MCH 31.1 MCHC 32.7 RDW 13.7 Plt Count 181 Seg Neutrophils % Not Reportable Lymphocytes % Not Reportable Monocytes % Not Reportable Eosinophils % Not Reportable Basophils % Not Reportable Absolute Neutrophils Not Reportable Absolute Lymphocytes Not Reportable Absolute Monocytes Not Reportable Absolute Eosinophils Not Reportable Absolute Basophils Not Reportable Carbonic Acid HCO3/H2CO3 Ratio ABG pH ABG pCO2 ABG pO2 ABG HCO3 ABG O2 Saturation ABG Base Excess FiO2 Sodium 146.6 H Potassium 5.0 Chloride 119 H Carbon Dioxide 10 L* Anion Gap 18 BUN 12 Creatinine 0.63 Est GFR ( Amer) > 60 Est GFR (Non-Af Amer) > 60 Glucose 421 H* Lactic Acid Calcium 7.3 L Magnesium 1.3 L Total Bilirubin 0.7 AST 34 ALT 35 Alkaline Phosphatase 54 Total Protein 4.3 L Albumin 2.4 L Lipase TSH 0.03 L Urine Color Urine Appearance Urine pH Ur Specific [place] Urine Protein Urine Glucose (UA) Urine Ketones Urine Blood Urine Nitrite Ur Leukocyte Esterase Urine WBC (Auto) Urine RBC (Auto) 12/04/16 06:50 WBC RBC Hgb Hct MCV MCH MCHC RDW Plt Count Seg Neutrophils % Lymphocytes % Monocytes % Eosinophils % Basophils % Absolute Neutrophils Absolute Lymphocytes Absolute Monocytes Absolute Eosinophils Absolute Basophils Carbonic Acid HCO3/H2CO3 Ratio ABG pH ABG pCO2 ABG pO2 ABG HCO3 ABG O2 Saturation ABG Base Excess FiO2 Sodium Potassium Chloride Carbon Dioxide Anion Gap BUN Creatinine Est GFR ( Amer) Est GFR (Non-Af Amer) Glucose Lactic Acid Calcium Magnesium Total Bilirubin AST ALT Alkaline Phosphatase Total Protein Albumin Lipase 19.3 L TSH Urine Color Urine Appearance Urine pH Ur Specific [place] Urine Protein Urine Glucose (UA) Urine Ketones Urine Blood Urine Nitrite Ur Leukocyte Esterase Urine WBC (Auto) Urine RBC (Auto) 12/03/16 12/04/16 12/04/16 20:00 03:20 03:20 Creatine Kinase 35 CK-MB (CK-2) < 0.22 Troponin I < 0.012 0.062 Impressions: Abdomen X-Ray 12/04/16 00:00 IMPRESSION: Nonobstructive bowel gas pattern. Abdomen Ultrasound 12/04/16 03:41 IMPRESSION: No cholelithiasis or biliary ductal dilation. Positive sonographic Valdes's sign. If there is clinical concern for acute acalculous cholecystitis, a hepatobiliary scan can be obtained for further evaluation. Fatty infiltration of the liver. Assessment & Plan - Diagnosis (1) DKA (diabetic ketoacidoses) Qualifiers: Diabetes mellitus type: type 1 Is this a current diagnosis for this admission?: Yes (2) Dehydration Is this a current diagnosis for this admission?: Yes (3) Hypovolemic shock Is this a current diagnosis for this admission?: Yes (4) Full code status Is this a current diagnosis for this admission?: Yes (5) Metabolic acidosis Is this a current diagnosis for this admission?: Yes (7) [place] disease Is this a current diagnosis for this admission?: Yes (8) Hypothyroidism Qualifiers: Hypothyroidism type: unspecified Qualified Code(s): E03.9 - Hypothyroidism, unspecified Is this a current diagnosis for this admission?: Yes (9) Acute abdomen Is this a current diagnosis for this admission?: YesPlan: Acute abdomen developed during the night A KUB and ultrasound were unremarkable Patient's white blood count now has jumped to 26,000, the lactic acid is still persistently elevated He acidosis has worsened with a CO2 of 10 Patient very well could have an acute ischemic bowel secondary to prolonged hypotension We will give her more IV fluids Ertapenem IV was ordered Surgical consult will be obtained; this was discussed with Dr. Whaley stat CT abdomen and pelvis with IV contrast was ordered Patient's condition is extremely guarded (10) Electrolyte imbalance Is this a current diagnosis for this admission?: YesPlan: Hypomagnesemia we will replace - Time Critical Time spent with patient: 35 or more minutes
--- NOTE | 2016-12-04 08:18 | Physician Advisory Note ---
Physician Advisor ProgressNote .: Pursuant to the plan for [facility], I have reviewed the medical record for this patient. Physician Advisor Statement: Excellent job "painting the picture" today of how sick pt is. Possible documentation opportunities if attending agrees: 1. "panhypopituitarism w/acute adrenal/Addisonian crisis" 2. "hypernatremia, likely due to severe intravascular volume depletion" 3. "underweight with protein-calorie malnutrition [state mild, mod, or severe ] with BMI __, ____[?wt loss, ?appetite loss, ]" [if possible, give specifics on intake, wt loss, loss of SQ fat & muscle mass, diminished hand risk management internship strength, & clinical importance such as (A) nutritional assessment ordered, (B) modified diet or supplements ordered, (C) additional labs ordered, (D) prolonged wound healing time, (E) delayed infxn clearance] As always, if concerned about any unstable VS or abnormal labs, please comment on them & note what doing about them, & please document each day the potential clinical problems you are concerned could occur if pt not kept in hospital for tx at this time. Discussion: 56yo female w/ chronic co-morbidities including DM I, celiac dz, panhypopit/ L[place]'s dz/hypothyroidism, CAD w/AR - presented 4/2 PM to ED w/abd pain, vomiting, hypotension profound (+) BP 77/51, HR 111, RR 19-28+, dry mucosae, WBC 16.5, bicarb 14 then 11, glc 665, A.gap 22, lactate 4.7, ... Given central line, IVF copious, insulin & SoluCortef, ... Attending ordered 4L of IVF boluses, then 200ml/hr, NPO, .... Status: Pt with DM I & Lester's dz, so needing hydrocortisone as well as insulin ( which work against each other as far as DKA resolution is concerned), copious ongoing IVF yet with worsening hypernatremia & acidosis & hypocalcemia, .... Persistent severe tachycardia & repeated tachypnea, severe hypotension continued & needed Lupillo-synephrine gtt + 3L more IVF wide open to support BP this AM, continued significant electrolyte abnormalities, ... will most certainly not be able to go home after 1MN. Her condition is extremely guarded. Tx in inpatient hospital setting medically reasonable & necessary to protect pt' s health, safety, & medical condition. Appropriate for Inpt status. Thanks for your help with documentation accuracy/specificity improvement! Radha Hameed MD [facility] Physician Advisor, Fellow of Hospital Medicine
[2016-12-04] MEDS ORDERED: INSULIN REG, HUMAN 100 UNIT/ML 3 ML VIAL (PYX) ONE (08:28)
[2016-12-04] MEDS: MORPHINE SULFATE 10 MG/ML INJ IV PRN ×2 (08:56→14:41)
[2016-12-04] MEDS: MAGNESIUM SULFATE/D5W 100 ML IV SCH ×2 (08:57→09:53)
[2016-12-04] MEDS ORDERED: DEXTROSE 5%-WATER 1000 ML 1,000 ML with SODIUM BICARBONATE 150 MEQ IV PRN ×2 (09:00)
[2016-12-04] MEDS: ERTAPENEM SODIUM 1 GM in NORMAL SALINE 50 ML IV SCH (09:20)
[2016-12-04] MEDS ORDERED: LORAZEPAM INJ 2 MG/1 ML VIAL ONE (09:20)
[2016-12-04] MEDS: FAMOTIDINE INJ/PF 20 MG/2 ML SDV IV SCH ×2 (09:56→21:17)
[2016-12-04] MEDS ORDERED: VANCOMYCIN HCL 0 MG in DEXTROSE 5%-WATER 250 ML IV NR (11:15)
[2016-12-04 12:08] LABS: BLOOD UREA NITROGEN 13 mg/dL (7-20); CALCIUM 7.3 mg/dL (8.4-10.2); CHLORIDE 119 mmol/L (98-107); CREATININE RESULT 0.63 mg/dL (0.52-1.25); MAGNESIUM 1.4 mg/dL (1.6-2.3); POTASSIUM 5.1 mmol/L (3.6-5.0); SODIUM 146.1 mmol/L (137-145)
[2016-12-04 12:23] LABS: ANION GAP 20 (5-19); CARBON DIOXIDE 7 mmol/L (22-30); GLUCOSE 455 mg/dL (75-110)
[2016-12-04 12:32] LABS: CREATINE KINASE MB 0.85 ng/mL (<4.55)
[2016-12-04 12:35] LABS: TROPONIN I 0.144 ng/mL
[2016-12-04 12:54] LABS: ANION GAP 13 (5-19); BLOOD UREA NITROGEN 12 mg/dL (7-20); CARBON DIOXIDE 16 mmol/L (22-30); CHLORIDE 116 mmol/L (98-107); CREATININE RESULT 0.58 mg/dL (0.52-1.25); GLUCOSE 378 mg/dL (75-110); MAGNESIUM 1.8 mg/dL (1.6-2.3)
--- NOTE | 2016-12-04 12:54 | EKG REPORT ---
SEVERITY:- OTHERWISE NORMAL ECG - SINUS TACHYCARDIA : Confirmed by: Rissa Ordaz MD 04-Dec-2016 12:53:25
--- NOTE | 2016-12-04 12:54 | EKG REPORT ---
SEVERITY:- ABNORMAL ECG - SINUS TACHYCARDIA FIRST DEGREE AV BLOCK LOW VOLTAGE IN FRONTAL LEADS NONSPECIFIC REPOL ABNORMALITY, DIFFUSE LEADS : Confirmed by: Rissa Ordaz MD 04-Dec-2016 12:53:31
[2016-12-04 13:02] LABS: POTASSIUM 3.5 mmol/L (3.6-5.0)
[2016-12-04 13:03] LABS: CALCIUM 6.7 mg/dL (8.4-10.2)
[2016-12-04] MEDS ORDERED: VANCOMYCIN HCL 1,000 MG in DEXTROSE 5%-WATER 250 ML IV ONE (14:00)
[2016-12-04] MEDS ORDERED: INSULIN, REGULAR 100 UNIT/100 ML NORMAL SALINE IV PRN ×2 (14:04)
[2016-12-04 16:44] LABS: ANION GAP 10 (5-19); BLOOD UREA NITROGEN 11 mg/dL (7-20); CARBON DIOXIDE 20 mmol/L (22-30); CHLORIDE 115 mmol/L (98-107); CREATINE KINASE 76 U/L (30-135); CREATININE RESULT 0.57 mg/dL (0.52-1.25); GLUCOSE 250 mg/dL (75-110); POTASSIUM 3.2 mmol/L (3.6-5.0); SODIUM 144.8 mmol/L (137-145)
[2016-12-04 16:57] LABS: CREATINE KINASE MB 2.33 ng/mL (<4.55); TROPONIN I 0.385 ng/mL
[2016-12-04] MEDS ORDERED: HEPARIN SODIUM,PORCINE/D5W 250 ML IV PRN (17:18)
[2016-12-04] MEDS ORDERED: POTASSI CL 20 MEQ/50 ML RIDER 50 ML IV ONE (17:30)
[2016-12-04] MEDS ORDERED: HEPARIN SOD (PORCINE) 1,000 UNIT/ML 10 ML VIAL IV PRN (17:35)
[2016-12-04 18:06] LABS: HEMATOCRIT 26.3 % (36.0-47.0); HEMOGLOBIN 8.6 g/dL (12.0-15.5); HGB HCT DIFFERENCE -0.5; MEAN CORPUSCULAR HEMOGLOBIN 30.6 pg (27.0-33.4); MEAN CORPUSCULAR HGB CONC 32.9 g/dL (32.0-36.0); MEAN CORPUSCULAR VOLUME 93 fl (80-97); RED BLOOD COUNT 2.82 10^6/uL (3.72-5.28); RED CELL DISTRIBUTION WIDTH 13.4 % (11.5-14.0); WHITE BLOOD COUNT 21.6 10^3/uL (4.0-10.5)
[2016-12-04 18:27] LABS: BAND NEUTROPHILS % (MANUAL) 2 % (3-5); BASOPHILS % (MANUAL) 0 % (0-2); EOSINOPHILS % (MANUAL) 0 % (0-6); LYMPHOCYTES % (MANUAL) 8 % (13-45); TOTAL CELLS COUNTED 100
[2016-12-04 18:28] LABS: HYPOCHROMASIA SLIGHT; POIKILOCYTOSIS SLIGHT; POLYCHROMASIA SLIGHT; SCHISTOCYTES SLIGHT; TOXIC GRANULATION 1+
[2016-12-04] MEDS: POTASSI CL 20 MEQ/D5-1/2NS 1L 1,000 ML IV PRN ×2 (18:28→23:56)
[2016-12-04 20:27] LABS: ANION GAP 7 (5-19); BLOOD UREA NITROGEN 10 mg/dL (7-20); CALCIUM 7.2 mg/dL (8.4-10.2); CARBON DIOXIDE 24 mmol/L (22-30); CHLORIDE 113 mmol/L (98-107); CREATININE RESULT 0.52 mg/dL (0.52-1.25); GLUCOSE 128 mg/dL (75-110); POTASSIUM 3.8 mmol/L (3.6-5.0); SODIUM 143.8 mmol/L (137-145)
--- NOTE | 2016-12-04 21:07 | PDOC CONSULTATION ---
Consultation Consult Date: 12/04/16 Attending physician:: ABEL LORA Consult reason:: Rule out ischemic bowel History of Present Illness Admission Date/PCP: 12/03/16 17:22 GURINDER MENG MD History of Present Illness: TAMAR PAULSON is a 56 year old female with history of Diabetes type I , panhypopituitarism and Arthur's disease presents to the ED complaining of vomiting and abdominal pain that started earlier today. Patient explains that 2 days ago, she was seen by EMT because of hypoglycemia. Yesterday, the patient began to feel bad, but woke up this morning better. Earlier this afternoon, the patient suddenly started having coughing spells and vomiting episodes secondary to the coughing. Patient denies dysuria or back pain. Upon evaluation in the ED she was profoundly hypotensive with a blood sugar over 600 and metabolic acidosis She was subsequently admitted to ICU Hydrocortisone , IV fluids and an insulin drip were initiated Surgeon's note: The patient is heavily sedated, and there is no family members to discuss patient's history of present illness, could not obtain any further information. Past Medical History Cardiac Medical History: Reports: Coronary Artery Disease - Cardiac catheter showed 50% stenosis, Myocardial Infarction, Hyperlipidema Denies: Congestive Heart Failure, DVT, Pulmonary Embolism Pulmonary Medical History: Denies: Asthma, Chronic Obstructive Pulmonary Disease (COPD) Neurological Medical History: Denies: Seizures Endocrine Medical History: Reports: Diabetes Mellitus Type 1, Diabetes Mellitus Type 2, Hypothyroidism, Other - [place]'s Disease Denies: Hyperthyroidism Malignancy Medical History: GI Medical History: Reports: Gastroesophageal Reflux Disease Denies: Cirrhosis, Hepatitis Musculoskeltal Medical History: Denies: Arthritis Skin Medical History: Denies: Eczema, Psoriasis Psychiatric Medical History: Reports: Depression Hematology: Reports: Anemia Denies: Hemophilia, Sickle Cell Disease Infectious Medical History: Past Surgical History Past Surgical History: Reports: Amputation, Cardiac Catheterization, Section, Tubal Ligation Social History Smoking Status: Never Smoker Frequency of Alcohol Use: None Hx Recreational Drug Use: No Drugs: None Hx Prescription Drug Abuse: No - Advance Directive Resuscitation Status: Full Code Family History Family History: CAD, Hypertension, Malignancy Parental Family History Reviewed: Yes Children Family History Reviewed: Yes Sibling(s) Family History Reviewed.: Yes Medication/Allergy Home Medications: Alprazolam [Xanax 0.25 mg Tablet] 0.25 mg PO BID 12/04/16 Brinzolamide/Brimonidine Tart [Simbrinza 1%-0.2% Eye Drops] 1 drop OU BID Cyclobenzaprine HCl [Amrix 15 mg Capsule Sustained Release] 15 mg PO DAILY 12/04 Fludrocortisone Acetate [Florinef 0.1 mg Tablet] 0.1 mg PO BID 12/04/16 Fluoxetine HCl [Prozac] 40 mg PO QAM 12/04/16 Hydrocortisone [Cortef 10 mg Tablet] 25 mg PO TID 12/04/16 Insulin Aspart [Novolog Insulin (Aspart) 100 unit/mL] 0 units SQ .PUMP 12/04/16 Latanoprost [Xalatan 0.005% Oph Soln 2.5 ml] 1 drop OU QHS 12/04/16 Levothyroxine Sodium [Synthroid] 137 mg PO DAILY 12/04/16 Temazepam [Restoril 15 mg Capsule] 15 mg PO QHS 12/04/16 Allergies/Adverse Reactions: azithromycin [From Zithromax] Allergy (Unknown, Verified 12/03/16 14:39) Physical Exam Vital Signs: Temp Pulse Resp BP Pulse Ox 99.3 F 133 H 10 L 95/64 L 100 12/04/16 19:59 12/04/16 08:00 12/04/16 18:30 12/04/16 18:22 12/04/16 18:30 Intake & Output 12/03/16 12/04/16 12/05/16 06:59 06:59 06:59 Intake Total 4187 4005 Output Total 1760 1175 Balance 2427 2830 Weight 48.4 kg General appearance: PRESENT: other - Sedated and nearly unresponsive, flinches to pain. Eye exam: PRESENT: other - Eyes closed due to effect of pharmacologic agents Cardiovascular exam: PRESENT: other - Rhonchi bilaterally GI/Abdominal exam: PRESENT: other - Not distended; hypoactive bowel sounds; patient grimaces when palpated in different quadrants; does not localize Results Laboratory Results: 12/04/16 17:40 12/04/16 19:55 12/03/16 12/03/16 12/03/16 20:00 20:15 23:30 WBC RBC Hgb Hct MCV MCH MCHC RDW Plt Count Seg Neutrophils % Lymphocytes % Monocytes % Eosinophils % Basophils % Absolute Neutrophils Absolute Lymphocytes Absolute Monocytes Absolute Eosinophils Absolute Basophils Carbonic Acid HCO3/H2CO3 Ratio ABG pH ABG pCO2 ABG pO2 ABG HCO3 ABG O2 Saturation ABG Base Excess FiO2 Sodium 146.1 H Potassium 3.2 L D Chloride 114 H Carbon Dioxide 21 L D Anion Gap 11 BUN 12 Creatinine 0.57 Est GFR ( Amer) > 60 Est GFR (Non-Af Amer) > 60 Glucose 245 H Lactic Acid 2.3 H Calcium 8.0 L Magnesium Total Bilirubin AST ALT Alkaline Phosphatase Total Protein Albumin Lipase TSH Urine Color STRAW Urine Appearance CLEAR Urine pH 5.0 Ur Specific [place] 1.020 Urine Protein NEGATIVE Urine Glucose (UA) >=500 H Urine Ketones 20 H Urine Blood NEGATIVE Urine Nitrite NEGATIVE Ur Leukocyte Esterase NEGATIVE Urine WBC (Auto) 0 Urine RBC (Auto) 0 12/04/16 12/04/16 12/04/16 02:55 03:20 06:50 WBC 28.6 H RBC 3.17 L Hgb 9.9 L D Hct 30.1 L MCV 95 MCH 31.1 MCHC 32.7 RDW 13.7 Plt Count 181 Seg Neutrophils % Not Reportable Lymphocytes % Not Reportable Monocytes % Not Reportable Eosinophils % Not Reportable Basophils % Not Reportable Absolute Neutrophils Not Reportable Absolute Lymphocytes Not Reportable Absolute Monocytes Not Reportable Absolute Eosinophils Not Reportable Absolute Basophils Not Reportable Carbonic Acid 0.75 L HCO3/H2CO3 Ratio 18:1 ABG pH 7.35 ABG pCO2 24.9 L ABG pO2 101.7 H ABG HCO3 13.6 L ABG O2 Saturation 97.6 ABG Base Excess -10.6 FiO2 2 L Sodium 145.2 H Potassium 4.4 D Chloride 116 H Carbon Dioxide 15 L Anion Gap 14 BUN 12 Creatinine 0.61 Est GFR ( Amer) > 60 Est GFR (Non-Af Amer) > 60 Glucose 306 H Lactic Acid Calcium 7.8 L Magnesium Total Bilirubin AST ALT Alkaline Phosphatase Total Protein Albumin Lipase TSH Urine Color Urine Appearance Urine pH Ur Specific [place] Urine Protein Urine Glucose (UA) Urine Ketones Urine Blood Urine Nitrite Ur Leukocyte Esterase Urine WBC (Auto) Urine RBC (Auto) 12/04/16 12/04/16 12/04/16 06:50 06:50 06:50 WBC RBC Hgb Hct MCV MCH MCHC RDW Plt Count Seg Neutrophils % Lymphocytes % Monocytes % Eosinophils % Basophils % Absolute Neutrophils Absolute Lymphocytes Absolute Monocytes Absolute Eosinophils Absolute Basophils Carbonic Acid HCO3/H2CO3 Ratio ABG pH ABG pCO2 ABG pO2 ABG HCO3 ABG O2 Saturation ABG Base Excess FiO2 Sodium 146.6 H Potassium 5.0 Chloride 119 H Carbon Dioxide 10 L* Anion Gap 18 BUN 12 Creatinine 0.63 Est GFR ( Amer) > 60 Est GFR (Non-Af Amer) > 60 Glucose 421 H* Lactic Acid Calcium 7.3 L Magnesium 1.3 L Total Bilirubin 0.7 AST 34 ALT 35 Alkaline Phosphatase 54 Total Protein 4.3 L Albumin 2.4 L Lipase 19.3 L TSH 0.03 L Urine Color Urine Appearance Urine pH Ur Specific [place] Urine Protein Urine Glucose (UA) Urine Ketones Urine Blood Urine Nitrite Ur Leukocyte Esterase Urine WBC (Auto) Urine RBC (Auto) 12/04/16 12/04/16 12/04/16 08:56 12:25 15:45 WBC RBC Hgb Hct MCV MCH MCHC RDW Plt Count Seg Neutrophils % Lymphocytes % Monocytes % Eosinophils % Basophils % Absolute Neutrophils Absolute Lymphocytes Absolute Monocytes Absolute Eosinophils Absolute Basophils Carbonic Acid HCO3/H2CO3 Ratio ABG pH ABG pCO2 ABG pO2 ABG HCO3 ABG O2 Saturation ABG Base Excess FiO2 Sodium 146.1 H 145.0 144.8 Potassium 5.1 H 3.5 L D 3.2 L Chloride 119 H 116 H 115 H Carbon Dioxide 7 L* 16 L 20 L Anion Gap 20 H 13 10 BUN 13 12 11 Creatinine 0.63 0.58 0.57 Est GFR ( Amer) > 60 > 60 > 60 Est GFR (Non-Af Amer) > 60 > 60 > 60 Glucose 455 H* 378 H 250 H Lactic Acid Calcium 7.3 L 6.7 L* 7.0 L* Magnesium 1.4 L 1.8 Total Bilirubin AST ALT Alkaline Phosphatase Total Protein Albumin Lipase TSH Urine Color Urine Appearance Urine pH Ur Specific [place] Urine Protein Urine Glucose (UA) Urine Ketones Urine Blood Urine Nitrite Ur Leukocyte Esterase Urine WBC (Auto) Urine RBC (Auto) 12/04/16 12/04/16 17:40 19:55 WBC 21.6 H RBC 2.82 L Hgb 8.6 L Hct 26.3 L MCV 93 MCH 30.6 MCHC 32.9 RDW 13.4 Plt Count 153 Seg Neutrophils % Not Reportable Lymphocytes % Not Reportable Monocytes % Not Reportable Eosinophils % Not Reportable Basophils % Not Reportable Absolute Neutrophils Not Reportable Absolute Lymphocytes Not Reportable Absolute Monocytes Not Reportable Absolute Eosinophils Not Reportable Absolute Basophils Not Reportable Carbonic Acid HCO3/H2CO3 Ratio ABG pH ABG pCO2 ABG pO2 ABG HCO3 ABG O2 Saturation ABG Base Excess FiO2 Sodium 143.8 Potassium 3.8 Chloride 113 H Carbon Dioxide 24 Anion Gap 7 BUN 10 Creatinine 0.52 Est GFR ( Amer) > 60 Est GFR (Non-Af Amer) > 60 Glucose 128 H Lactic Acid Calcium 7.2 L Magnesium Total Bilirubin AST ALT Alkaline Phosphatase Total Protein Albumin Lipase TSH Urine Color Urine Appearance Urine pH Ur Specific [place] Urine Protein Urine Glucose (UA) Urine Ketones Urine Blood Urine Nitrite Ur Leukocyte Esterase Urine WBC (Auto) Urine RBC (Auto) 12/03/16 12/04/16 12/04/16 20:00 03:20 03:20 Creatine Kinase 35 CK-MB (CK-2) < 0.22 Troponin I < 0.012 0.062 12/04/16 12/04/16 12/04/16 08:56 08:56 15:45 Creatine Kinase 59 76 CK-MB (CK-2) 0.85 Troponin I 0.144 12/04/16 15:45 Creatine Kinase CK-MB (CK-2) 2.33 Troponin I 0.385 Impressions: Abdomen X-Ray 12/04/16 00:00 IMPRESSION: Nonobstructive bowel gas pattern. Abdomen Ultrasound 12/04/16 03:41 IMPRESSION: No cholelithiasis or biliary ductal dilation. Positive sonographic Valdes's sign. If there is clinical concern for acute acalculous cholecystitis, a hepatobiliary scan can be obtained for further evaluation. Fatty infiltration of the liver. Chest X-Ray 12/04/16 07:25 IMPRESSION: Diffuse prominence of the interstitial markings as noted above and the possibility of an interstitial pneumonitis or inflammatory changes should be considered. No acute consolidations or pleural effusions. Other findings as noted above Abdomen/Pelvis CT 12/04/16 07:26 IMPRESSION: There are no definite CT findings to confirm bowel ischemia. Findings suggestive of a hypotensive state as noted above. There is some mild thickening of the gallbladder nguyen and I cannot exclude a tiny component of pericholecystic fluid. A small amount of free fluid is identified in the pelvis. Zurita catheter is identified in the bladder and there is a prominent air-fluid level in the bladder presumably related to the Zurita catheter however clinical correlation is recommended. Other findings as noted above Assessment & Plan - Diagnosis (1) Acute abdomen Is this a current diagnosis for this admission?: YesPlan: 1. In general, over the last 18 hours, patient is clinically improved and very to very aggressive fluid resuscitation, metabolic taoist of DKA hypovolemia etc. 2. Reliability of abdominal exam greatly impaired due to pharmacologic agents on board. However, CT scan reviewed. No gross free air, massive fluid, abscess , pneumotosis intestinalis, etc. There may be signs consistent with pericholecystic inflammation. A HIDA scan has been ordered for the morning; will follow with you; no indication for surgical intervention tonight. (2) Hypovolemic shock Is this a current diagnosis for this admission?: Yes
[2016-12-04 23:54] LABS: ANION GAP 6 (5-19); BLOOD UREA NITROGEN 9 mg/dL (7-20); CARBON DIOXIDE 23 mmol/L (22-30); CHLORIDE 112 mmol/L (98-107); CREATININE RESULT 0.45 mg/dL (0.52-1.25); GLUCOSE 139 mg/dL (75-110); POTASSIUM 3.8 mmol/L (3.6-5.0); SODIUM 141.1 mmol/L (137-145)
[2016-12-05 00:06] LABS: CALCIUM 6.3 mg/dL (8.4-10.2)
[2016-12-05 04:09] LABS: ANION GAP 7 (5-19); BLOOD UREA NITROGEN 8 mg/dL (7-20); CARBON DIOXIDE 22 mmol/L (22-30); CHLORIDE 113 mmol/L (98-107); CREATININE RESULT 0.49 mg/dL (0.52-1.25); GLUCOSE 167 mg/dL (75-110); SODIUM 142.3 mmol/L (137-145)
[2016-12-05 04:24] LABS: CALCIUM 6.7 mg/dL (8.4-10.2)
[2016-12-05] MEDS: HYDROCORTISONE SOD SUCCINATE INJ/PF 100 MG/2 ML SDV IV SCH ×2 (05:39→13:56)
[2016-12-05] MEDS: VANCOMYCIN HCL 750 MG in DEXTROSE 5%-WATER 250 ML IV SCH ×2 (05:39→17:05)
[2016-12-05] MEDS: DEXTROSE 5%-WATER 250 ML with PHENYLEPHRINE HCL 40 MG IV PRN ×2 (05:40)
[2016-12-05 05:56] LABS: HEMATOCRIT 27.1 % (36.0-47.0); HEMOGLOBIN 9.1 g/dL (12.0-15.5); HGB HCT DIFFERENCE 0.2; MEAN CORPUSCULAR HEMOGLOBIN 30.8 pg (27.0-33.4); MEAN CORPUSCULAR HGB CONC 33.6 g/dL (32.0-36.0); MEAN CORPUSCULAR VOLUME 92 fl (80-97); RED BLOOD COUNT 2.96 10^6/uL (3.72-5.28); RED CELL DISTRIBUTION WIDTH 13.5 % (11.5-14.0); WHITE BLOOD COUNT 17.9 10^3/uL (4.0-10.5)
[2016-12-05 06:08] LABS: ALANINE AMINOTRANSFERASE 31 U/L (9-52); ALBUMIN 2.1 g/dL (3.5-5.0); ALKALINE PHOSPHATASE 45 U/L (38-126); ANION GAP 7 (5-19); ASPARTATE AMINO TRANSFERASE 29 U/L (14-36); BILIRUBIN,DIRECT 0.1 mg/dL (0.0-0.4); BILIRUBIN,TOTAL 0.4 mg/dL (0.2-1.3); BLOOD UREA NITROGEN 7 mg/dL (7-20); CARBON DIOXIDE 22 mmol/L (22-30); CHLORIDE 113 mmol/L (98-107); CREATININE RESULT 0.48 mg/dL (0.52-1.25); GLUCOSE 181 mg/dL (75-110); LIPASE 34.4 U/L (23-300); POTASSIUM 4.1 mmol/L (3.6-5.0); SODIUM 142.1 mmol/L (137-145)
[2016-12-05 06:19] LABS: CALCIUM 6.6 mg/dL (8.4-10.2)
[2016-12-05 06:22] LABS: BAND NEUTROPHILS % (MANUAL) 1 % (3-5); BASOPHILS % (MANUAL) 0 % (0-2); EOSINOPHILS % (MANUAL) 0 % (0-6); LYMPHOCYTES % (MANUAL) 6 % (13-45); TOTAL CELLS COUNTED 100
[2016-12-05 06:23] LABS: RBC MORPHOLOGY COMMENT NORMO-CYTIC/CHROMIC
[2016-12-05] MEDS ORDERED: CALCIUM GLUCONATE 1,000 MG in DEXTROSE 5%-WATER 50 ML IV ONE (07:36)
[2016-12-05] MEDS ORDERED: CALCIUM GLUCONATE 1000 MG/10 ML INJ IV ONE (08:00)
--- NOTE | 2016-12-05 09:14 | PDOC PROGRESS REPORT ---
Physical Exam Vital Signs: Temp Pulse Resp BP Pulse Ox 100.8 F H 103 H 17 135/78 H 95 12/05/16 08:00 12/05/16 08:00 12/05/16 08:00 12/05/16 08:00 12/05/16 08:00 Intake & Output 12/04/16 12/05/16 12/06/16 06:59 06:59 06:59 Intake Total 4185 6271 Output Total 1764 9280 Balance 2427 4421 Weight 48.4 kg 55.6 kg General appearance: PRESENT: no acute distress GI/Abdominal exam: PRESENT: soft, tenderness - mild tenderness RUQ Results Laboratory Results: 12/05/16 05:30 12/05/16 05:30 12/04/16 12/04/16 12/04/16 08:56 12:25 15:45 WBC RBC Hgb Hct MCV MCH MCHC RDW Plt Count Seg Neutrophils % Lymphocytes % Monocytes % Eosinophils % Basophils % Absolute Neutrophils Absolute Lymphocytes Absolute Monocytes Absolute Eosinophils Absolute Basophils Sodium 146.1 H 145.0 144.8 Potassium 5.1 H 3.5 L D 3.2 L Chloride 119 H 116 H 115 H Carbon Dioxide 7 L* 16 L 20 L Anion Gap 20 H 13 10 BUN 13 12 11 Creatinine 0.63 0.58 0.57 Est GFR ( Amer) > 60 > 60 > 60 Est GFR (Non-Af Amer) > 60 > 60 > 60 Glucose 455 H* 378 H 250 H Calcium 7.3 L 6.7 L* 7.0 L* Magnesium 1.4 L 1.8 Total Bilirubin AST ALT Alkaline Phosphatase Total Protein Albumin Lipase Free T3 pg/mL 12/04/16 12/04/16 12/04/16 17:40 19:55 23:30 WBC 21.6 H RBC 2.82 L Hgb 8.6 L Hct 26.3 L MCV 93 MCH 30.6 MCHC 32.9 RDW 13.4 Plt Count 153 Seg Neutrophils % Not Reportable Lymphocytes % Not Reportable Monocytes % Not Reportable Eosinophils % Not Reportable Basophils % Not Reportable Absolute Neutrophils Not Reportable Absolute Lymphocytes Not Reportable Absolute Monocytes Not Reportable Absolute Eosinophils Not Reportable Absolute Basophils Not Reportable Sodium 143.8 141.1 Potassium 3.8 3.8 Chloride 113 H 112 H Carbon Dioxide 24 23 Anion Gap 7 6 BUN 10 9 Creatinine 0.52 0.45 L Est GFR ( Amer) > 60 > 60 Est GFR (Non-Af Amer) > 60 > 60 Glucose 128 H 139 H Calcium 7.2 L 6.3 L* Magnesium Total Bilirubin AST ALT Alkaline Phosphatase Total Protein Albumin Lipase Free T3 pg/mL 12/04/16 12/05/16 12/05/16 23:30 03:15 03:15 WBC RBC Hgb Hct MCV MCH MCHC RDW Plt Count Seg Neutrophils % Lymphocytes % Monocytes % Eosinophils % Basophils % Absolute Neutrophils Absolute Lymphocytes Absolute Monocytes Absolute Eosinophils Absolute Basophils Sodium 142.3 Potassium 4.0 Chloride 113 H Carbon Dioxide 22 Anion Gap 7 BUN 8 Creatinine 0.49 L Est GFR ( Amer) > 60 Est GFR (Non-Af Amer) > 60 Glucose 167 H Calcium 6.7 L* Magnesium Total Bilirubin AST ALT Alkaline Phosphatase Total Protein Albumin 2.2 L 2.1 L Lipase Free T3 pg/mL 12/05/16 12/05/16 12/05/16 03:15 05:30 05:30 WBC 17.9 H RBC 2.96 L Hgb 9.1 L Hct 27.1 L MCV 92 MCH 30.8 MCHC 33.6 RDW 13.5 Plt Count 136 L Seg Neutrophils % Not Reportable Lymphocytes % Not Reportable Monocytes % Not Reportable Eosinophils % Not Reportable Basophils % Not Reportable Absolute Neutrophils Not Reportable Absolute Lymphocytes Not Reportable Absolute Monocytes Not Reportable Absolute Eosinophils Not Reportable Absolute Basophils Not Reportable Sodium 142.1 Potassium 4.1 Chloride 113 H Carbon Dioxide 22 Anion Gap 7 BUN 7 Creatinine 0.48 L Est GFR ( Amer) > 60 Est GFR (Non-Af Amer) > 60 Glucose 181 H Calcium 6.6 L* Magnesium Total Bilirubin 0.4 AST 29 ALT 31 Alkaline Phosphatase 45 Total Protein 4.0 L Albumin 2.1 L Lipase 34.4 Free T3 pg/mL 2.23 L 12/03/16 12/04/16 12/04/16 20:00 03:20 03:20 Creatine Kinase 35 CK-MB (CK-2) < 0.22 Troponin I < 0.012 0.062 12/04/16 12/04/16 12/04/16 08:56 08:56 15:45 Creatine Kinase 59 76 CK-MB (CK-2) 0.85 Troponin I 0.144 04/03/17 15:45 Creatine Kinase CK-MB (CK-2) 2.33 Troponin I 0.385 Impressions: Abdomen X-Ray 12/04/16 00:00 IMPRESSION: Nonobstructive bowel gas pattern. Abdomen Ultrasound 12/04/16 03:41 IMPRESSION: No cholelithiasis or biliary ductal dilation. Positive sonographic Valdes's sign. If there is clinical concern for acute acalculous cholecystitis, a hepatobiliary scan can be obtained for further evaluation. Fatty infiltration of the liver. Chest X-Ray 12/04/16 07:25 IMPRESSION: Diffuse prominence of the interstitial markings as noted above and the possibility of an interstitial pneumonitis or inflammatory changes should be considered. No acute consolidations or pleural effusions. Other findings as noted above Abdomen/Pelvis CT 12/04/16 07:26 IMPRESSION: There are no definite CT findings to confirm bowel ischemia. Findings suggestive of a hypotensive state as noted above. There is some mild thickening of the gallbladder nguyen and I cannot exclude a tiny component of pericholecystic fluid. A small amount of free fluid is identified in the pelvis. Zurita catheter is identified in the bladder and there is a prominent air-fluid level in the bladder presumably related to the Zurita catheter however clinical correlation is recommended. Other findings as noted above Assessment & Plan - Plan Summary Plan Summary: HIDA scan this am. Clinically much improved.
[2016-12-05] MEDS ORDERED: ASPIRIN 300 MG SUPP, RECTAL PR SCH (10:00)
--- NOTE | 2016-12-05 11:08 | PDOC PROGRESS REPORT ---
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 Patient explains that 2 days ago, she was seen by EMT because of hypoglycemia. Yesterday, the patient began to feel bad, but woke up this morning better. Earlier this afternoon, the patient suddenly started having coughing spells and vomiting episodes secondary to the coughing. Patient denies dysuria or back pain. Upon evaluation in the ED she was profoundly hypotensive with a blood sugar over 600 and metabolic acidosis. She was subsequently admitted to ICU, Hydrocortisone , IV fluids and an insulin drip were initiated. Patient's condition worsened during the night ;she developed increasing abdominal pain; tachycardia and hypotension persisted and Lupillo- Neosynephrine drip was initiated. She to be sedated with morphine." I inherited her care this morning and found her alert and oriented to person place and time, little fuzzy about the details she arrived here. She continues to complain of right lower quadrant abdominal discomfort described as "pain when people push there" but otherwise she is pain-free. With palpation she describes sharp stabbing pain that radiates through to her back relieved with rest and no associated symptoms. Her Anion Gap closed though she remains on insulin drip at 4 units per hour, D5 normal saline with 20 mEq of potassium chloride at 150 mg per hour, blood pressures have improved with a mean arterial pressure currently 101 while still on Lupillo-Synephrine at 40 g, she is in a positive fluid balance of 4.4 L. ROS: per HPI plus a total of 10 systems reviewed, pertinent positives and negatives noted above, remaining systems negative. Physical Exam Vital Signs: Temp Pulse Resp BP Pulse Ox 100.8 F H 103 H 17 135/78 H 95 12/05/16 08:00 12/05/16 08:00 12/05/16 08:00 12/05/16 08:00 12/05/16 08:00 Intake & Output 12/04/16 12/05/16 12/06/16 06:59 06:59 06:59 Intake Total 3611 8236 Output Total 7367 5046 Balance 9750 3869 Weight 48.4 kg 55.6 kg EXAM GENERAL: NAD; well developed, well nourished; no obese; alert and oriented to person, place, time, situation HEENT: normocephalic, atraumatic; no conjunctival injection, no scleral icterus ; oral mucosa dry; RESPIRATORY: no accessory muscle use, no increased WOB, good air entry bilaterally; no wheezes, rales, rhonchi; bibasilar inspiratory crackles CARDIO: no JVD; RRR; no systolic murmur; tachycardia GI: soft; nondistended; diminished bowel sounds; no rebound, rigidity, guarding ; tender to palpation RLQ, no mass noted VASCULAR: no carotid bruit; no abdominal bruit; no pallor; 2+ radial, DP pulse ; normal capillary refill EXTREMITIES: no calf tender; no palpable cords in calf; no clubbing, cyanosis ; pitting edema of all extremities PSYCH: normal affect, normal mood SKIN: warm; moist; no petechiae; no telengectasias; no jaundice; no rash Results Laboratory Results: 12/05/16 05:30 12/05/16 05:30 12/04/16 12/04/16 12/04/16 08:56 12:25 15:45 WBC RBC Hgb Hct MCV MCH MCHC RDW Plt Count Seg Neutrophils % Lymphocytes % Monocytes % Eosinophils % Basophils % Absolute Neutrophils Absolute Lymphocytes Absolute Monocytes Absolute Eosinophils Absolute Basophils Sodium 146.1 H 145.0 144.8 Potassium 5.1 H 3.5 L D 3.2 L Chloride 119 H 116 H 115 H Carbon Dioxide 7 L* 16 L 20 L Anion Gap 20 H 13 10 BUN 13 12 11 Creatinine 0.63 0.58 0.57 Est GFR ( Amer) > 60 > 60 > 60 Est GFR (Non-Af Amer) > 60 > 60 > 60 Glucose 455 H* 378 H 250 H Calcium 7.3 L 6.7 L* 7.0 L* Magnesium 1.4 L 1.8 Total Bilirubin AST ALT Alkaline Phosphatase Total Protein Albumin Lipase Free T3 pg/mL 12/04/16 12/04/16 12/04/16 17:40 19:55 23:30 WBC 21.6 H RBC 2.82 L Hgb 8.6 L Hct 26.3 L MCV 93 MCH 30.6 MCHC 32.9 RDW 13.4 Plt Count 153 Seg Neutrophils % Not Reportable Lymphocytes % Not Reportable Monocytes % Not Reportable Eosinophils % Not Reportable Basophils % Not Reportable Absolute Neutrophils Not Reportable Absolute Lymphocytes Not Reportable Absolute Monocytes Not Reportable Absolute Eosinophils Not Reportable Absolute Basophils Not Reportable Sodium 143.8 141.1 Potassium 3.8 3.8 Chloride 113 H 112 H Carbon Dioxide 24 23 Anion Gap 7 6 BUN 10 9 Creatinine 0.52 0.45 L Est GFR ( Amer) > 60 > 60 Est GFR (Non-Af Amer) > 60 > 60 Glucose 128 H 139 H Calcium 7.2 L 6.3 L* Magnesium Total Bilirubin AST ALT Alkaline Phosphatase Total Protein Albumin Lipase Free T3 pg/mL 12/04/16 12/05/16 12/05/16 23:30 03:15 03:15 WBC RBC Hgb Hct MCV MCH MCHC RDW Plt Count Seg Neutrophils % Lymphocytes % Monocytes % Eosinophils % Basophils % Absolute Neutrophils Absolute Lymphocytes Absolute Monocytes Absolute Eosinophils Absolute Basophils Sodium 142.3 Potassium 4.0 Chloride 113 H Carbon Dioxide 22 Anion Gap 7 BUN 8 Creatinine 0.49 L Est GFR ( Amer) > 60 Est GFR (Non-Af Amer) > 60 Glucose 167 H Calcium 6.7 L* Magnesium Total Bilirubin AST ALT Alkaline Phosphatase Total Protein Albumin 2.2 L 2.1 L Lipase Free T3 pg/mL 12/05/16 12/05/16 12/05/16 03:15 05:30 05:30 WBC 17.9 H RBC 2.96 L Hgb 9.1 L Hct 27.1 L MCV 92 MCH 30.8 MCHC 33.6 RDW 13.5 Plt Count 136 L Seg Neutrophils % Not Reportable Lymphocytes % Not Reportable Monocytes % Not Reportable Eosinophils % Not Reportable Basophils % Not Reportable Absolute Neutrophils Not Reportable Absolute Lymphocytes Not Reportable Absolute Monocytes Not Reportable Absolute Eosinophils Not Reportable Absolute Basophils Not Reportable Sodium 142.1 Potassium 4.1 Chloride 113 H Carbon Dioxide 22 Anion Gap 7 BUN 7 Creatinine 0.48 L Est GFR ( Amer) > 60 Est GFR (Non-Af Amer) > 60 Glucose 181 H Calcium 6.6 L* Magnesium Total Bilirubin 0.4 AST 29 ALT 31 Alkaline Phosphatase 45 Total Protein 4.0 L Albumin 2.1 L Lipase 34.4 Free T3 pg/mL 2.23 L 12/03/16 12/04/16 12/04/16 20:00 03:20 03:20 Creatine Kinase 35 CK-MB (CK-2) < 0.22 Troponin I < 0.012 0.062 12/04/16 12/04/16 12/04/16 08:56 08:56 15:45 Creatine Kinase 59 76 CK-MB (CK-2) 0.85 Troponin I 0.144 12/04/16 15:45 Creatine Kinase CK-MB (CK-2) 2.33 Troponin I 0.385 Labs reviewed, troponins trending up, patient is chest pain-free; acidosis resolved, calcium very low. Impressions: Abdomen X-Ray 12/04/16 00:00 IMPRESSION: Nonobstructive bowel gas pattern. Abdomen Ultrasound 12/04/16 03:41 IMPRESSION: No cholelithiasis or biliary ductal dilation. Positive sonographic Valdes's sign. If there is clinical concern for acute acalculous cholecystitis, a hepatobiliary scan can be obtained for further evaluation. Fatty infiltration of the liver. Chest X-Ray 12/04/16 07:25 IMPRESSION: Diffuse prominence of the interstitial markings as noted above and the possibility of an interstitial pneumonitis or inflammatory changes should be considered. No acute consolidations or pleural effusions. Other findings as noted above Abdomen/Pelvis CT 12/04/16 07:26 IMPRESSION: There are no definite CT findings to confirm bowel ischemia. Findings suggestive of a hypotensive state as noted above. There is some mild thickening of the gallbladder nguyen and I cannot exclude a tiny component of pericholecystic fluid. A small amount of free fluid is identified in the pelvis. [place] catheter is identified in the bladder and there is a prominent air-fluid level in the bladder presumably related to the [place] catheter however clinical correlation is recommended. Other findings as noted above Status: Imported from PACS Assessment & Plan - Diagnosis (1) Septic shock Is this a current diagnosis for this admission?: YesPlan: Improved but not back to baseline. Still requiring vasopressor support. Initially thought to be hypovolemic shock but now with gram-positive cocci in clusters in 2 of her blood cultures suggestive of infectious process. Sepsis as evidenced by leukocytosis, tachycardia, temperature greater than 100.5 and a source. Source of the bacteremia is unknown. We'll repeat blood cultures to clear. Awaiting HIDA scan to see if gallbladder as a potential source. Review the chest x-ray by my eye shows no acute cardiopulmonary disease. Review the CT of the abdomen and pelvis shows haziness in the mesentery perhaps suggestive of inflammation there and raises the possibility of possible gallbladder disease, but is otherwise unremarkable. Continue ertapenem, vancomycin until final culture results available. (2) Bacteremia Is this a current diagnosis for this admission?: YesPlan: Initial blood cultures were negative. Awaiting final report on follow-up cultures. We will repeat again today. Otherwise treat as above. If repeat cultures remain positive, she will need transesophageal echocardiogram which we do not perform at this facility. (3) Hypocalcemia Is this a current diagnosis for this admission?: YesPlan: Worse. Likely related to poor oral intake and sepsis. Replenish with calcium gluconate and continue to monitor. (4) DKA (diabetic ketoacidoses) Qualifiers: Diabetes mellitus type: type 1 Is this a current diagnosis for this admission?: YesPlan: Proved. With resolution of the anion gap metabolic acidosis, however unable to advance her diet until repletion of GI evaluation and resolution of symptoms. Therefore will continue insulin drip and IV fluids for now. (5) Nausea and vomiting Qualifiers: Vomiting type: unspecified Vomiting Intractability: non-intractable Qualified Code(s): R11.2 - Nausea with vomiting, unspecified Is this a current diagnosis for this admission?: YesPlan: Improved. Continue nothing by mouth status as noted above. Possibly related to acute gallbladder disease currently under investigation, possibly related to severity of the DKA. (6) Dehydration Is this a current diagnosis for this admission?: YesPlan: Improved. Related to the above. Workup and treatment as above. (7) Coronary artery disease Qualifiers: Coronary Disease-Associated Artery/Lesion type: [place] artery [place] vs. transplanted heart: [place] heart Associated angina: without angina Qualified Code(s): I25.10 - Atherosclerotic heart disease of [place] coronary artery without angina pectoris Is this a current diagnosis for this admission?: YesPlan: Unclear status. She is chest pain-free, EKG shows no ischemic changes but her cardiac enzymes are trending up into the NSTEMI range. Due to her underlying CAD with 50% stenosis seen on previous heart catheter, she was started on full dose heparin therapy and given aspirin by Dr. Vasquez. She is not a candidate for beta cole therapy due to the hypotension or ANDREA inhibitor due to hyperkalemia at presentation and consider statin therapy at discharge. No echocardiogram on the chart. Apparently she receives most of her care at [facility] , any invasive investigation she would like performed at that facility. Consult cardiology for their recommendations. (8) Diabetes mellitus type I Qualifiers: Diabetes mellitus complication status: with ketoacidosis Diabetes mellitus complication detail: without coma Qualified Code(s): E10.10 - Type 1 diabetes mellitus with ketoacidosis without coma Is this a current diagnosis for this admission?: YesPlan: Stable as noted above. Continue treatment as noted above. (9) Arthur disease Is this a current diagnosis for this admission?: YesPlan: Improved though still hemodynamically labile, continue hydrocortisone scheduled. (10) Anemia Qualifiers: Anemia type: iron deficiency Iron deficiency anemia type: other iron deficiency Qualified Code(s): D50.8 - Other iron deficiency anemias Is this a current diagnosis for this admission?: YesPlan: H&H stable. Likely anemia of chronic disease related to her long-standing diabetes. No evidence for acute blood loss at present. Will need careful monitoring while on anticoagulation. - Time Time Spent with patient: 35 or more minutes Medications reviewed and adjusted accordingly: Yes - Plan Summary Plan Summary: Patient seems to be improving. Appreciate surgery's input, awaiting HIDA scan results. Consider transfer to tertiary care center if her condition were to deteriorate, patient usually receives bulk of her care at [facility]. Prognosis guarded
[2016-12-05] MEDS: ERTAPENEM SODIUM 1 GM in NORMAL SALINE 50 ML IV SCH (11:35)
[2016-12-05] MEDS: FAMOTIDINE INJ/PF 20 MG/2 ML SDV IV SCH (11:35)
[2016-12-05] MEDS ORDERED: RANOLAZINE 500 MG TAB.SR.12H PO ONE (14:00)
--- NOTE | 2016-12-05 17:25 | PDOC TRANSFER SUMMARY ---
General Admission Date/PCP: 12/03/16 17:22 GURINDER MENG MD Transfer Date: 12/05/16 Accepting Facility: [facility] Accepting Physician: dr manjarrez Resuscitation Status: Full Code - Transfer Diagnosis (1) Septic shock Is this a current diagnosis for this admission?: YesDiagnosis Summary: Improved but not back to baseline. Still requiring vasopressor support. Initially thought to be hypovolemic shock but now with gram-positive cocci in clusters in 2 of her blood cultures suggestive of infectious process. Sepsis as evidenced by leukocytosis, tachycardia, temperature greater than 100.5 and a source. Source of the bacteremia is unknown. We'll repeat blood cultures til clear. HIDA scan shows dysfxn gallbladder but no evidence for acute cholecystitis so I still have no obvious source. Review of the chest x-ray by my eye shows no acute cardiopulmonary disease. Review the CT of the abdomen and pelvis shows haziness in the mesentery perhaps suggestive of inflammation there and raises the possibility of possible gallbladder disease, but is otherwise unremarkable. Continue ertapenem, vancomycin until final culture results available. continue to wean off vasopressors, now just 10 micrograms. (2) NSTEMI (non-ST elevated myocardial infarction) Is this a current diagnosis for this admission?: YesDiagnosis Summary: she remains chest pain free but troponins are rising and report I received from [facility] indicated cath results 10/2015 showed 60-70% Prox LAD and L Cx putting her at great risk for occlusion. Unclear if this is source of her DKA. Accepted in transfer to [facility], Dr Manjarrez accepting weight inspector. she remains on heparin gtt, no beta cole or nitro due to hypotension. (3) Bacteremia Is this a current diagnosis for this admission?: YesDiagnosis Summary: Initial blood cultures were negative. Awaiting final report on follow-up cultures. repeated again today. continue abx. If repeat cultures remain positive, she will need transesophageal echocardiogram which we do not perform at this facility. (4) Hypocalcemia Is this a current diagnosis for this admission?: YesDiagnosis Summary: given calcium gluconate this morning, continue to monitor and replace. (5) DKA (diabetic ketoacidoses) Is this a current diagnosis for this admission?: YesDiagnosis Summary: Improved with resolution of the anion gap metabolic acidosis, however unable to advance her diet due to above medical issues and persistent GI symptoms. Therefore will continue insulin drip and IV fluids for now. 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 Is this a current diagnosis for this admission?: Yes (11) Anemia Is this a current diagnosis for this admission?: Yes - Transfer Medications Home Medications: Alprazolam [Xanax 0.25 mg Tablet] 0.25 mg PO BID 12/04/16 Brinzolamide/Brimonidine Tart [Simbrinza 1%-0.2% Eye Drops] 1 drop OU BID Cyclobenzaprine HCl [Amrix 15 mg Capsule Sustained Release] 15 mg PO DAILY 12/04 Fludrocortisone Acetate [Florinef 0.1 mg Tablet] 0.1 mg PO BID 12/04/16 Fluoxetine HCl [Prozac] 40 mg PO QAM 12/04/16 Hydrocortisone [Cortef 10 mg Tablet] 25 mg PO TID 12/04/16 Insulin Aspart [Novolog Insulin (Aspart) 100 unit/mL] 0 units SQ .PUMP 12/04/16 Latanoprost [Xalatan 0.005% Oph Soln 2.5 ml] 1 drop OU QHS 12/04/16 Levothyroxine Sodium [Synthroid] 137 mg PO DAILY 12/04/16 Temazepam [Restoril 15 mg Capsule] 15 mg PO QHS 12/04/16 Transfer Medications: Current Medications Aspirin (Aspirin 300 Mg Rectal Supp) 300 mg MO DAILY [facility] Stop: 01/04/17 09:59 Last Admin: 12/05/16 11:36 Dose: 300 mg Atorvastatin Calcium (Lipitor 40 Mg Tablet) 80 mg PO QHS [facility] Stop: 01/04/17 21:59 Dextrose (Dextrose Inj 50% Syringe (25 Gm/50 Ml)) 12.5 gm IV PRN PRN; Protocol PRN Reason: FOR BG 50-69 IN ALERT PATIENT Stop: 01/03/17 14:06 Dextrose (Dextrose Inj 50% Syringe (25 Gm/50 Ml)) 25 gm IV PRN PRN PRN Reason: Protocol Stop: 01/03/17 14:06 Famotidine (Pepcid Inj/Pf 20 Mg/2 Ml Sdv) 20 mg IV Q12 [facility] Stop: 01/02/17 21:59 Last Admin: 12/05/16 11:35 Dose: 20 mg Glucagon (Glucagen Inj 1 Mg Vial) 1 mg IM PRN PRN; Protocol PRN Reason: EVALUATE FOR BG < 70 Stop: 01/03/17 14:06 Glucose (Glutose 40% Gel 15 Gm Tube) 15 gm PO PRN PRN; Protocol PRN Reason: FOR BG 50-69 IN ALERT PATIENT Stop: 01/03/17 14:06 Glucose (Glutose 40% Gel 15 Gm Tube) 30 gm PO PRN PRN; Protocol PRN Reason: FOR BG < 50 IN ALERT PATIENT Stop: 01/03/17 14:06 Heparin Sodium (Porcine) (Heparin Inj 1,000 Unit/Ml 10 Ml Vial) 0 - 12,000 unit IV .BOLUS PER PROTOCOL PRN; Protocol PRN Reason: RESPOND TO aPTT VALUES Stop: 01/03/17 17:34 Hydrocortisone Sodium Succinate (Solu-Cortef Inj/Pf 100 Mg/ 2 Ml Sdv) 50 mg IV Q8 [facility] Stop: 01/02/17 21:59 Last Admin: 12/05/16 13:56 Dose: 50 mg Hard Fat/Phenylephrine 40 mg/ (Dextrose) 250 mls @ 0 mls/hr IV CONTINUOUS PRN; Protocol; Titrate PRN Reason: THIS MED IS NOT "PRN" Stop: 01/03/17 04:41 Last Admin: 12/05/16 05:40 Dose: 40 mg Ertapenem 1 gm/ Sodium (Chloride) 50 mls @ 100 mls/hr IV DAILY [facility] Stop: 12/11/16 09:59 Last Admin: 12/05/16 11:35 Dose: 1 gm Vancomycin HCl 750 mg/ (Dextrose) 250 mls @ 166.667 mls/hr IV Q12A [facility] Stop: 12/12/16 05:59 Last Admin: 12/05/16 17:05 Dose: 750 mg Insulin Human Regular 100 unit (/ Sodium Chloride) 100 mls @ mls/hr IV .CONTINUOUS PRN; Titrate PRN Reason: Protocol Stop: 01/03/17 14:03 Last Admin: 12/04/16 17:34 Dose: 100 unit Potassium Chloride/Dextrose/Sod Cl (D5-1/2ns 1000 Ml/Kcl 20 Meq Premix Bag) 1, 000 mls @ 150 mls/hr IV CONTINUOUS PRN PRN Reason: THIS MED IS NOT "PRN" Stop: 01/03/17 17:13 Last Admin: 12/04/16 23:56 Dose: 1,000 ml Heparin Sodium/Dextrose (Heparin Rtu 25,000 Unit/250 Ml D5w Premix) 250 mls @ 0 mls/hr IV CONTINUOUS PRN; Protocol; Titrate PRN Reason: THIS MED IS NOT "PRN" Stop: 01/03/17 17:17 Last Admin: 12/04/16 18:29 Dose: 250 ml Lisinopril (Prinivil 5 Mg Tablet) 2.5 mg PO DAILY [facility] Stop: 01/05/17 09:59 Metoprolol Succinate (Toprol Xl 25 Mg Tab.Sr) 25 mg PO Q12 [facility] Stop: 01/04/17 21:59 Morphine Sulfate (Morphine 10 Mg/Ml Inj) 2 mg IV Q2HP PRN PRN Reason: FOR MODERATE TO SEVERE PAIN Stop: 12/11/16 08:28 Last Admin: 12/04/16 14:41 Dose: 2 mg Ondansetron HCl (Zofran Inj/Pf 4 Mg/2 Ml Sdv) 8 mg IV Q8HP PRN PRN Reason: FOR NAUSEA/VOMITING Stop: 01/02/17 17:48 Promethazine HCl (Phenergan Inj 25 Mg/1 Ml Vial) 12.5 mg IV Q4HP PRN PRN Reason: FOR NAUSEA/VOMITING Stop: 01/02/17 17:48 Last Admin: 12/04/16 08:52 Dose: 12.5 mg Ranolazine (Ranexa 500 Mg Tab.Sr) 500 mg PO Q12 [facility] Stop: 01/04/17 21:59 Sodium Chloride (Saline Flush 2.5 Ml Monoject Prefil Syrin) 2.5 ml IV Q8 [facility] Stop: 01/02/17 21:59 Last Admin: 12/05/16 13:57 Dose: 2.5 ml - Allergies Allergies/Adverse Reactions: azithromycin [From Zithromax] Allergy (Unknown, Verified 12/03/16 14:39) - Diet/Activity Discharge Diet: Other (Comments) - npo Hospital Course Hospital Course: Per H&P "TAMAR PAULSON is a 56 year old female with history of Diabetes type I , panhypopituitarism and Iroquois's disease presents to the ED complaining of vomiting and abdominal pain that started earlier today. Patient explains that 2 days ago, she was seen by EMT because of hypoglycemia. Yesterday, the patient began to feel bad, but woke up this morning better. Earlier this afternoon, the patient suddenly started having coughing spells and vomiting episodes secondary to the coughing. Patient denies dysuria or back pain. Upon evaluation in the ED she was profoundly hypotensive with a blood sugar over 600 and metabolic acidosis. She was subsequently admitted to ICU, Hydrocortisone , IV fluids and an insulin drip were initiated. Patient's condition worsened during the night ;she developed increasing abdominal pain; tachycardia and hypotension persisted and Lupillo- Neosynephrine drip was initiated. She to be sedated with morphine." I inherited her care this morning and found her alert and oriented to person place and time, little fuzzy about the details she arrived here. She continues to complain of right lower quadrant abdominal discomfort described as "pain when people push there" but otherwise she is pain-free. With palpation she describes sharp stabbing pain that radiates through to her back relieved with rest and no associated symptoms. Her Anion Gap closed though she remains on insulin drip at 4 units per hour, D5 normal saline with 20 mEq of potassium chloride at 150 mg per hour, blood pressures have improved with a mean arterial pressure currently 101 while still on Lupillo-Synephrine at 10 g, she is in a positive fluid balance of 4.4 L as of this morning. Her HIDA scan shows a dysfunctional gallbladder with an ejection fraction of only 9%, however there was no evidence of acute cholecystitis. Her pain localizes to the right lower quadrant in and about the area of mesenteric inflammation seen on the CT scan raising that possibility as a source. No clear source for her initial presentation in DKA has yet been elucidated though several possibilities exist, including the gram-positive bacteremia and rising troponins. I contacted [facility] and spoke with Dr. Manjarrez, weight inspector who pulled up her record showing heart catheter in October 2015 and findings of 60-70% proximal LAD and left circumflex stenosis. He has graciously agreed to accept her in transfer. She is stable for transfer at this time. She is agreeable to transfer. Physical Exam Vital Signs: Temp Pulse Resp BP Pulse Ox 99.7 F 109 H 25 H 126/83 H 97 12/05/16 12:00 12/05/16 14:00 12/05/16 14:40 12/05/16 14:40 12/05/16 14:25 Intake & Output 12/04/16 12/05/16 12/06/16 06:59 06:59 06:59 Intake Total 4187 6238 Output Total 1760 5610 1275 Balance 2427 8784 -1275 Weight 48.4 kg 55.6 kg EXAM GENERAL: NAD; well developed, well nourished; no obese; alert and oriented to person, place, time, situation HEENT: normocephalic, atraumatic; no conjunctival injection, no scleral icterus ; oral mucosa dry; RESPIRATORY: no accessory muscle use, no increased WOB, good air entry bilaterally; no wheezes, rales, rhonchi; bibasilar inspiratory crackles CARDIO: no JVD; RRR; no systolic murmur; tachycardia GI: soft; nondistended; diminished bowel sounds; no rebound, rigidity, guarding ; tender to palpation RLQ, no mass noted VASCULAR: no carotid bruit; no abdominal bruit; no pallor; 2+ radial, DP pulse ; normal capillary refill EXTREMITIES: no calf tender; no palpable cords in calf; no clubbing, cyanosis ; pitting edema of all extremities PSYCH: normal affect, normal mood SKIN: warm; moist; no petechiae; no telengectasias; no jaundice; no rash Results Laboratory Results: 12/05/16 05:30 12/05/16 05:30 12/04/16 12/04/16 12/04/16 15:45 17:40 19:55 WBC 21.6 H RBC 2.82 L Hgb 8.6 L Hct 26.3 L MCV 93 MCH 30.6 MCHC 32.9 RDW 13.4 Plt Count 153 Seg Neutrophils % Not Reportable Lymphocytes % Not Reportable Monocytes % Not Reportable Eosinophils % Not Reportable Basophils % Not Reportable Absolute Neutrophils Not Reportable Absolute Lymphocytes Not Reportable Absolute Monocytes Not Reportable Absolute Eosinophils Not Reportable Absolute Basophils Not Reportable Sodium 144.8 143.8 Potassium 3.2 L 3.8 Chloride 115 H 113 H Carbon Dioxide 20 L 24 Anion Gap 10 7 BUN 11 10 Creatinine 0.57 0.52 Est GFR ( Amer) > 60 > 60 Est GFR (Non-Af Amer) > 60 > 60 Glucose 250 H 128 H Calcium 7.0 L* 7.2 L Total Bilirubin AST ALT Alkaline Phosphatase Total Protein Albumin Lipase Free T3 pg/mL 12/04/16 12/04/16 12/05/16 23:30 23:30 03:15 WBC RBC Hgb Hct MCV MCH MCHC RDW Plt Count Seg Neutrophils % Lymphocytes % Monocytes % Eosinophils % Basophils % Absolute Neutrophils Absolute Lymphocytes Absolute Monocytes Absolute Eosinophils Absolute Basophils Sodium 141.1 142.3 Potassium 3.8 4.0 Chloride 112 H 113 H Carbon Dioxide 23 22 Anion Gap 6 7 BUN 9 8 Creatinine 0.45 L 0.49 L Est GFR ( Amer) > 60 > 60 Est GFR (Non-Af Amer) > 60 > 60 Glucose 139 H 167 H Calcium 6.3 L* 6.7 L* Total Bilirubin AST ALT Alkaline Phosphatase Total Protein Albumin 2.2 L Lipase Free T3 pg/mL 12/05/16 12/05/16 12/05/16 03:15 03:15 05:30 WBC 17.9 H RBC 2.96 L Hgb 9.1 L Hct 27.1 L MCV 92 MCH 30.8 MCHC 33.6 RDW 13.5 Plt Count 136 L Seg Neutrophils % Not Reportable Lymphocytes % Not Reportable Monocytes % Not Reportable Eosinophils % Not Reportable Basophils % Not Reportable Absolute Neutrophils Not Reportable Absolute Lymphocytes Not Reportable Absolute Monocytes Not Reportable Absolute Eosinophils Not Reportable Absolute Basophils Not Reportable Sodium Potassium Chloride Carbon Dioxide Anion Gap BUN Creatinine Est GFR ( Amer) Est GFR (Non-Af Amer) Glucose Calcium Total Bilirubin AST ALT Alkaline Phosphatase Total Protein Albumin 2.1 L Lipase Free T3 pg/mL 2.23 L 12/05/16 05:30 WBC RBC Hgb Hct MCV MCH MCHC RDW Plt Count Seg Neutrophils % Lymphocytes % Monocytes % Eosinophils % Basophils % Absolute Neutrophils Absolute Lymphocytes Absolute Monocytes Absolute Eosinophils Absolute Basophils Sodium 142.1 Potassium 4.1 Chloride 113 H Carbon Dioxide 22 Anion Gap 7 BUN 7 Creatinine 0.48 L Est GFR ( Amer) > 60 Est GFR (Non-Af Amer) > 60 Glucose 181 H Calcium 6.6 L* Total Bilirubin 0.4 AST 29 ALT 31 Alkaline Phosphatase 45 Total Protein 4.0 L Albumin 2.1 L Lipase 34.4 Free T3 pg/mL 12/03/16 12/04/16 12/04/16 20:00 03:20 03:20 Creatine Kinase 35 CK-MB (CK-2) < 0.22 Troponin I < 0.012 0.062 12/04/16 12/04/16 12/04/16 08:56 08:56 15:45 Creatine Kinase 59 76 CK-MB (CK-2) 0.85 Troponin I 0.144 12/04/16 15:45 Creatine Kinase CK-MB (CK-2) 2.33 Troponin I 0.385 Impressions: Abdomen X-Ray 12/04/16 00:00 IMPRESSION: Nonobstructive bowel gas pattern. Abdomen Ultrasound 12/04/16 03:41 IMPRESSION: No cholelithiasis or biliary ductal dilation. Positive sonographic Valdes's sign. If there is clinical concern for acute acalculous cholecystitis, a hepatobiliary scan can be obtained for further evaluation. Fatty infiltration of the liver. Chest X-Ray 12/04/16 07:25 IMPRESSION: Diffuse prominence of the interstitial markings as noted above and the possibility of an interstitial pneumonitis or inflammatory changes should be considered. No acute consolidations or pleural effusions. Other findings as noted above Abdomen/Pelvis CT 12/04/16 07:26 IMPRESSION: There are no definite CT findings to confirm bowel ischemia. Findings suggestive of a hypotensive state as noted above. There is some mild thickening of the gallbladder nguyen and I cannot exclude a tiny component of pericholecystic fluid. A small amount of free fluid is identified in the pelvis. [place] catheter is identified in the bladder and there is a prominent air-fluid level in the bladder presumably related to the [place] catheter however clinical correlation is recommended. Other findings as noted above Hepatobiliary Scan Nuclear Medicine 12/05/16 08:00 IMPRESSION: Although patient's symptoms not reproduced with CCK administration , gallbladder ejection fraction is below normal at 9%. This suggests biliary dyskinesis. Plan Discharge Plan: Transfer to tertiary care Center for higher level of care including invasive cardiology and weight inspector.
[2016-12-05] MEDS: POTASSI CL 20 MEQ/D5-1/2NS 1L 1,000 ML IV PRN (17:38)
[2016-12-05] MEDS: MORPHINE SULFATE 10 MG/ML INJ IV PRN (18:22)
[2016-12-05 18:44] LABS: ANION GAP 8 (5-19); BLOOD UREA NITROGEN 6 mg/dL (7-20); CALCIUM 7.1 mg/dL (8.4-10.2); CARBON DIOXIDE 21 mmol/L (22-30); CHLORIDE 113 mmol/L (98-107); CREATININE RESULT 0.46 mg/dL (0.52-1.25); GLUCOSE 229 mg/dL (75-110); POTASSIUM 4.1 mmol/L (3.6-5.0); SODIUM 141.7 mmol/L (137-145)
[2016-12-05 19:52] VITALS: BP 95/55
--- NOTE | 2016-12-05 20:20 | PDOC CONSULTATION ---
Consultation Consult Date: 12/05/16 Attending physician:: PAIGE VERNON Consult reason:: Abnormal troponin I elevation History of Present Illness Admission Date/PCP: 12/03/16 17:22 GURINDER MENG MD Patient complains of: Fluttering sensation in the chest. 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 On day of admission, the patient suddenly started having coughing spells and vomiting episodes secondary to the coughing. Patient denies dysuria or back pain. Patient also complained of abdominal pain but no real chest pain. Patient was noted to be hypotensive and in diabetic ketoacidosis. She is also suspected to have sepsis. Patient was being monitored in the unit when she was noted to have significant elevation of troponin I. I was therefore asked to evaluate this patient. Patient does give history of significant CAD. He told that she was considered for a stent and bypass surgery but nothing was performed. This was according to heart catheter performed approximately 6 months ago. She is followed by mule developer at [facility]. Patient did complain of some fluttering sensation in the chest but no real chest pain. Patient's medical regimen was optimized. Past Medical History Cardiac Medical History: Reports: Coronary Artery Disease - Cardiac catheter showed 50% stenosis, Myocardial Infarction, Hyperlipidema Denies: Congestive Heart Failure, DVT, Pulmonary Embolism Pulmonary Medical History: Denies: Asthma, Chronic Obstructive Pulmonary Disease (COPD) Neurological Medical History: Denies: Seizures Endocrine Medical History: Reports: Diabetes Mellitus Type 1, Diabetes Mellitus Type 2, Hypothyroidism, Other - Sharkey's Disease Denies: Hyperthyroidism Malignancy Medical History: GI Medical History: Reports: Gastroesophageal Reflux Disease Denies: Cirrhosis, Hepatitis Musculoskeltal Medical History: Denies: Arthritis Skin Medical History: Denies: Eczema, Psoriasis Psychiatric Medical History: Reports: Depression Hematology: Reports: Anemia Denies: Hemophilia, Sickle Cell Disease Infectious Medical History: Past Surgical History Past Surgical History: Reports: Amputation, Cardiac Catheterization, Section, Tubal Ligation Social History Information Source: Patient Smoking Status: Never Smoker Frequency of Alcohol Use: None Hx Recreational Drug Use: No Drugs: None Hx Prescription Drug Abuse: No - Advance Directive Resuscitation Status: Full Code Family History Family History: CAD, Hypertension, Malignancy Parental Family History Reviewed: Yes Children Family History Reviewed: Yes Sibling(s) Family History Reviewed.: Yes Medication/Allergy Home Medications: Alprazolam [Xanax 0.25 mg Tablet] 0.25 mg PO BID 12/04/16 Brinzolamide/Brimonidine Tart [Simbrinza 1%-0.2% Eye Drops] 1 drop OU BID Cyclobenzaprine HCl [Amrix 15 mg Capsule Sustained Release] 15 mg PO DAILY 12/04 Fludrocortisone Acetate [Florinef 0.1 mg Tablet] 0.1 mg PO BID 12/04/16 Fluoxetine HCl [Prozac] 40 mg PO QAM 12/04/16 Hydrocortisone [Cortef 10 mg Tablet] 25 mg PO TID 12/04/16 Insulin Aspart [Novolog Insulin (Aspart) 100 unit/mL] 0 units SQ .PUMP 12/04/16 Latanoprost [Xalatan 0.005% Oph Soln 2.5 ml] 1 drop OU QHS 12/04/16 Levothyroxine Sodium [Synthroid] 137 mg PO DAILY 12/04/16 Temazepam [Restoril 15 mg Capsule] 15 mg PO QHS 12/04/16 Allergies/Adverse Reactions: azithromycin [From Zithromax] Allergy (Unknown, Verified 12/03/16 14:39) Review of Systems Review of Systems: Please see history of present illness and past medical history as wall. Constitutional: No fever or chills reported. Her last weakness fatigue and tiredness noted. Head : No recent chronic headaches, recent head injury. Eyes: No recent eye pain, diplopia, redness, discharge, acute visual changes. Ears: No recent chronic ear pain, acute hearing loss, ear discharge. Oral cavity: No recent ulcerations, bleeding, oral cavity discomfort. Neck: No recent acute neck pain reported. Hematologic: No recent easy bruising or bleeding or hematologic malignancy reported. Lymphatic: No recent lymphatic malignancy, chronic lymphadenopathy reported yet Cardiovascular system review: See history of present illness. Respiratory system review: No recent chronic cough, hemoptysis, blood clots in the lungs reported. Mild Shortness of breath on exertion Gastrointestinal system review: Positive for abdominal pain, nausea vomiting but no hematemesis, melena, recent change in bowel habits. Genitourinary system review: No recent acute or chronic hematuria, flank pain, UTI etc. reported. Skin system review: Negative for any recent abnormal bruising, no rash, no pruritus reported. Neurologic: No prior history of strokes, mini strokes, seizure disorder. Psychologic: No history of major psychosis or major depression reported. Musculoskeletal: Minor aches and pains reported. No acute joint swelling reported. Endocrine: No recent polyuria, polydipsia, recent heat or cold intolerance. Physical Exam Vital Signs: Temp Pulse Resp BP Pulse Ox 99.7 F 109 H 23 H 112/58 L 97 12/05/16 12:00 12/05/16 14:00 12/05/16 18:00 12/05/16 17:55 12/05/16 18:00 Intake & Output 12/04/16 12/05/16 12/06/16 06:59 06:59 06:59 Intake Total 4187 6274 1892 Output Total 1760 1850 1275 Balance 2427 4424 617 Weight 48.4 kg 55.6 kg Exam: GENERAL: well-nourished and in no acute distress. Alert and oriented x3 HEAD: Atraumatic, normocephalic. EYES: Pupils equal round and reactive to light, extraocular movements intact, sclera anicteric, conjunctiva are normal. ENT: TMs normal, nares patent, oropharynx clear without exudates. Moist mucous membranes. No oral ulcerations or bleeding gums noted NECK: supple without lymphadenopathy. Trachea is central. No cervical or axillary lymphadenopathy noted. Carotids are 2+, JVD WNL LUNGS: Respiration seems nonlabored, no significant accessory muscle action noted. Breath sounds clear to auscultation bilaterally and equal noted. No wheezes rales or rhonchi noted. No significant dullness noted on percussion. CHEST: Palpation of the chest wall shows no significant chest wall tenderness. No other significant abnormalities noted. HEART: [place] [employer] CL[employer], No PSH, 1/6 YEFRI aortic area, 1/6 mosquera systolic murmur mitral area, no rubs, no gallops. ABDOMEN: Soft, no significant tenderness appreciated, normoactive bowel sounds. No guarding, no rebound. No rigidity noted . No masses appreciated. EXTREMITIES: Pedal pulses are 1-2+, no calf tenderness noted. No clubbing or cyanosis.trace to 1+ pedal edema noted NEUROLOGICAL: Focused neurological exam showed no significant neurologic deficit. Normal speech, no focal weakness appreciated. PSYCH: Normal mood, normal affect. Judgment and insight within normal limits. SKIN: No significant ecchymosis, rash, ulcerations or signs of pruritus noted. MUSCULOSKELETAL EXAM: No significant joint swelling noted. Results Laboratory Results: 12/05/16 05:30 12/04/16 12/04/16 12/04/16 17:40 19:55 23:30 WBC 21.6 H RBC 2.82 L Hgb 8.6 L Hct 26.3 L MCV 93 MCH 30.6 MCHC 32.9 RDW 13.4 Plt Count 153 Seg Neutrophils % Lymphocytes % Monocytes % Eosinophils % Basophils % Absolute Neutrophils Absolute Lymphocytes Absolute Monocytes Absolute Eosinophils Absolute Basophils Sodium 143.8 141.1 Potassium 3.8 3.8 Chloride 113 H 112 H Carbon Dioxide 24 23 Anion Gap 7 6 BUN 10 9 Creatinine 0.52 0.45 L Est GFR ( Amer) > 60 > 60 Est GFR (Non-Af Amer) > 60 > 60 Glucose 128 H 139 H Calcium 7.2 L 6.3 L* Total Bilirubin AST ALT Alkaline Phosphatase Total Protein Albumin Lipase Free T3 pg/mL 12/04/16 12/05/16 12/05/16 23:30 03:15 03:15 WBC RBC Hgb Hct MCV MCH MCHC RDW Plt Count Seg Neutrophils % Lymphocytes % Monocytes % Eosinophils % Basophils % Absolute Neutrophils Absolute Lymphocytes Absolute Monocytes Absolute Eosinophils Absolute Basophils Sodium 142.3 Potassium 4.0 Chloride 113 H Carbon Dioxide 22 Anion Gap 7 BUN 8 Creatinine 0.49 L Est GFR ( Amer) > 60 Est GFR (Non-Af Amer) > 60 Glucose 167 H Calcium 6.7 L* Total Bilirubin AST ALT Alkaline Phosphatase Total Protein Albumin 2.2 L 2.1 L Lipase Free T3 pg/mL 12/05/16 12/05/16 12/05/16 03:15 05:30 05:30 WBC 17.9 H RBC 2.96 L Hgb 9.1 L Hct 27.1 L MCV 92 MCH 30.8 MCHC 33.6 RDW 13.5 Plt Count 136 L Seg Neutrophils % Not Reportable Lymphocytes % Not Reportable Monocytes % Not Reportable Eosinophils % Not Reportable Basophils % Not Reportable Absolute Neutrophils Not Reportable Absolute Lymphocytes Not Reportable Absolute Monocytes Not Reportable Absolute Eosinophils Not Reportable Absolute Basophils Not Reportable Sodium 142.1 Potassium 4.1 Chloride 113 H Carbon Dioxide 22 Anion Gap 7 BUN 7 Creatinine 0.48 L Est GFR ( Amer) > 60 Est GFR (Non-Af Amer) > 60 Glucose 181 H Calcium 6.6 L* Total Bilirubin 0.4 AST 29 ALT 31 Alkaline Phosphatase 45 Total Protein 4.0 L Albumin 2.1 L Lipase 34.4 Free T3 pg/mL 2.23 L 12/03/16 12/04/16 12/04/16 20:00 03:20 03:20 Creatine Kinase 35 CK-MB (CK-2) < 0.22 Troponin I < 0.012 0.062 12/04/16 12/04/16 12/04/16 08:56 08:56 15:45 Creatine Kinase 59 76 CK-MB (CK-2) 0.85 Troponin I 0.144 12/04/16 15:45 Creatine Kinase CK-MB (CK-2) 2.33 Troponin I 0.385 EKG Comments: Sinus tachycardia with minor nonspecific ST segment changes felt to BE rate related. Impressions: Abdomen X-Ray 12/04/16 00:00 IMPRESSION: Nonobstructive bowel gas pattern. Abdomen Ultrasound 12/04/16 03:41 IMPRESSION: No cholelithiasis or biliary ductal dilation. Positive sonographic Valdes's sign. If there is clinical concern for acute acalculous cholecystitis, a hepatobiliary scan can be obtained for further evaluation. Fatty infiltration of the liver. Chest X-Ray 12/04/16 07:25 IMPRESSION: Diffuse prominence of the interstitial markings as noted above and the possibility of an interstitial pneumonitis or inflammatory changes should be considered. No acute consolidations or pleural effusions. Other findings as noted above Abdomen/Pelvis CT 12/04/16 07:26 IMPRESSION: There are no definite CT findings to confirm bowel ischemia. Findings suggestive of a hypotensive state as noted above. There is some mild thickening of the gallbladder nguyen and I cannot exclude a tiny component of pericholecystic fluid. A small amount of free fluid is identified in the pelvis. [place] catheter is identified in the bladder and there is a prominent air-fluid level in the bladder presumably related to the [place] catheter however clinical correlation is recommended. Other findings as noted above Hepatobiliary Scan Nuclear Medicine 12/05/16 08:00 IMPRESSION: Although patient's symptoms not reproduced with CCK administration , gallbladder ejection fraction is below normal at 9%. This suggests biliary dyskinesis. Assessment & Plan - Diagnosis (1) DKA (diabetic ketoacidoses) Qualifiers: Diabetes mellitus type: type 1 Is this a current diagnosis for this admission?: Yes (2) Hypotension (arterial) Qualifiers: Hypotension type: other hypotension type Qualified Code(s): I95.89 - Other hypotension (3) NSTEMI (non-ST elevated myocardial infarction) Is this a current diagnosis for this admission?: Yes (4) Coronary artery disease Qualifiers: Coronary Disease-Associated Artery/Lesion type: yu[place]iatam artery [place] vs. transplanted heart: [place]iatam heart Associated angina: without angina Qualified Code(s): I25.10 - Atherosclerotic heart disease of yuhaaviatam coronary artery without angina pectoris Is this a current diagnosis for this admission?: Yes - Notes Notes: Non-STEMI: Most likely right to in view of patient being hypotensive, possible sepsis and in DKA. Patient does have some minor ST segment changes. Patient has known coronary artery disease therefore cannot rule out ACS related non- STEMI. At this point would recommend starting on the anticoagulation with heparin, start beta cole, started patient on metoprolol succinate 25 mg by mouth twice a day, start lisinopril at 5 mg by mouth daily, Ranexa at 500 mg by mouth twice a day. Should patient have recurrent chest pain, transfer patient to tertiary care for heart catheterization. Repeat EKGs as needed. Diabetic ketoacidosis: Patient had extremely elevated blood sugar. Hyperviscosity can cause non-STEMI. Patient being adequately treated. Arterial hypotension: This has improved. Patient currently off vasopressors and so I'm able to start beta blockers and jagruti inhibitors. Will obtain 2-D echo to make sure patient does not have any cardiogenic element which I doubt. Coronary artery disease: Patient describes history of urinary artery disease and was told that she might have stent placement or coronary artery bypass graft surgery but never went through it. Will try to obtain these records. Patient to report any further problems. Plan of care discussed with the patient. Patient's is the surrogate decision maker. - Time Time Spent: 50 to 70 Minutes - CODE STATUS was discussed, patient remains full code. Surrogate decision-maker patient's . Multiple medical problems were addressed.More than 50% of the time spent coordinating care, discussing management plans with involved caregivers. Management plans discussed with involved personnels. Medical decision making was of moderate complexity. Medications reviewed and adjusted accordingly: Yes
--- NOTE | 2016-12-05 20:50 | XCELERA REPORT ---
[address] [address] Transthoracic Echocardiogram Report Name: TAMAR PAULSON Age: 56 yrs Gender: Female : 1960 Patient Status: Inpatient Patient Location: ICU\S\610\S\A Study Date: 12/05/2016 03:24 PM Height: 64 in Weight: 122 lb BSA: 1.6 m2 Procedure: A complete two-dimensional transthoracic echocardiogram was performed (2D, M-mode, spectral and color flow Doppler). The study was technically adequate with some images being suboptimal in quality. Reason For Study: non-STEMI Ordering Physician: NORBERTO SLAUGHTER Performed By: Kely Rivera Interpretation Summary The left ventricular ejection fraction is normal. There is borderline concentric left ventricular hypertrophy. The left ventricle is grossly normal size. Doppler measurements suggest pseudonormalized left ventricular relaxation, which is associated with grade II/IV or mild to moderate diastolic dysfunction Wall motion cannot be accurately commented on, but no definite regional wall motion abnormalities noted. The right ventricular systolic function is normal. The right atrium is normal in size The left atrial size is normal. There is a mild amount of mitral regurgitation There is no mitral valve stenosis. There is a trace amount of aortic regurgitation There is no aortic valve stenosis There is a trace or physiologic amount of tricuspid regurgitation Tricuspid regurgitation jet envelope not well defined to measure RV systolic pressure accurately. The aortic root is not well visualized but is probably normal size. The inferior vena cava appeared normal and decreased > 50% with respiration (RAP 5-10 mmHg) There is no pericardial effusion. MMode/2D Measurements \T\ Calculations RVDd: 2.1 cm LVIDd: 4.1 cm FS: 28.9 % Ao root diam: 2.6 cm IVSd: 0.88 cm LVIDs: 2.9 cm EDV(Teich): 74.1 ml LVPWd: 0.91 cmESV(Teich): 32.6 ml Ao root area: 5.3 cm2 EF(Teich): 56.0 % LA dimension: 3.2 cm LVOT diam: 1.8 cm LVOT area: 2.6 cm2 Doppler Measurements \T\ Calculations MV E max victoria: MV P1/2t max victoria: Ao V2 max: LV V1 max P.0 cm/sec 91.4 cm/sec 141.7 cm/sec 3.3 mmHg MV A max victoria: MV P1/2t: 36.4 msec Ao max PG: LV V1 max: 62.5 cm/sec MVA(P1/2t): 6.0 cm2 8.0 mmHg 91.2 cm/sec MV E/A: 1.5 MV dec slope: RONNIE(V,D): 1.7 cm2 735.3 cm/sec2 PA V2 max: TR max victoria: 53.4 cm/sec 231.7 cm/sec PA max PG: TR max P.5 mmHg 1.1 mmHg Left Ventricle The left ventricle is grossly normal size. There is borderline concentric left ventricular hypertrophy. The left ventricular ejection fraction is normal. Doppler measurements suggest pseudonormalized left ventricular relaxation, which is associated with grade II/IV or mild to moderate diastolic dysfunction. Wall motion cannot be accurately commented on, but no definite regional wall motion abnormalities noted. Right Ventricle The right ventricle is grossly normal size. There is normal right ventricular wall thickness. The right ventricular systolic function is normal. Atria The right atrium is normal in size. The left atrial size is normal. Interarterial septum not well visualized and not well dopplered. Cannot comment on ASD/PFO presence. Mitral Valve The mitral valve leaflets are sclerotic, but show no functional abnormalities. There is no mitral valve stenosis. There is a mild amount of mitral regurgitation. Aortic Valve The aortic valve is grossly normal. There is no aortic valve stenosis. There is a trace amount of aortic regurgitation. Tricuspid Valve The tricuspid valve is not well visualized, but is grossly normal. There is no tricuspid stenosis. There is a trace or physiologic amount of tricuspid regurgitation. Tricuspid regurgitation jet envelope not well defined to measure RV systolic pressure accurately. Pulmonic Valve The pulmonic valve is not well visualized. Great Vessels The aortic root is not well visualized but is probably normal size. The inferior vena cava appeared normal and decreased > 50% with respiration (RAP 5-10 mmHg). Effusions There is no pericardial effusion. : NORBERTO SLAUGHTER > Norberto Slaughter
[2016-12-05] MEDS ORDERED: RANOLAZINE 500 MG TAB.SR.12H PO SCH (22:00)
[2016-12-05] MEDS ORDERED: METOPROLOL SUCCINATE 25 MG TAB.SR.24H PO SCH (22:00)
[2016-12-05] MEDS ORDERED: ATORVASTATIN CALCIUM 40 MG TABLET PO SCH (22:00)
[2016-12-06] MEDS ORDERED: LISINOPRIL 5 MG TABLET PO SCH (10:00)
== END 2016-12-05 20:15 | disposition short-term general hospital (02) | DRG 871 ==
LOC: ER 14:30 → UNDOADMIN 17:04 → EH 17:04 → INTOOBSV 17:22 → EH 17:22 → OBSVTOIN 17:22 → ICU 20:50
PROVIDERS: ADMIT Family Medicine; ATTEND Family Medicine
PROC: 02HV33Z Insertion of Infusion Device into Superior Vena Cava, Percutaneous Approach (ICD-10-PCS; principal; 2016-12-03)
PROC: B548ZZA Ultrasonography of Superior Vena Cava, Guidance (ICD-10-PCS; 2016-12-03)
DX: A41.9 Sepsis, unspecified organism (principal); R65.21 Severe sepsis with septic shock; I21.4 Non-ST elevation (NSTEMI) myocardial infarction; E10.10 Type 1 diabetes mellitus with ketoacidosis without coma; E27.1 Primary adrenocortical insufficiency; E83.42 Hypomagnesemia; R10.31 Right lower quadrant pain; D50.8 Other iron deficiency anemias; D64.9 Anemia, unspecified; E83.51 Hypocalcemia; E86.0 Dehydration; I25.10 Atherosclerotic heart disease of native coronary artery without angina pectoris; Z79.899 Other long term (current) drug therapy; Z88.6 Allergy status to analgesic agent; Z88.8 Allergy status to other drugs, medicaments and biological substances; Z88.1 Allergy status to other antibiotic agents
CPT/HCPCS: 36415; 71010; 74020; 74177; 76700; 78227; 80048; 80053; 81001; 82040; 82550; 82553; 82803; 82962; 83605; 83690; 83735; 84443; 84481; 84484; 85025; 85610; 85730; 87040; 87077; 87086; 87186; 93005; 93010; 93306; 96374; 99291; A9537; C1751; G0378; J0610; J1335; J1644; J1650; J1720; J1815; J2060; J2270; J2370; J2405; J2550; J2805; J3370; J3475; J3480; J3490; J7030; J7060; Q9969; S0028

== ENCOUNTER 2017-04-19 15:35 | Emergency (ER) | payer MEDICARE, BC ==
--- NOTE | 2017-04-19 16:32 | ER Document Report ---
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 She states for the past 3 days she has just felt weak, lethargic and then this morning had an episode of vomiting because the room "felt like it was spinning. She denies any chest pain at all, shortness of breath. TRAVEL OUTSIDE OF THE [place] IN LAST 30 DAYS: No - Related Data Allergies/Adverse Reactions: azithromycin [From Zithromax] Allergy (Unknown, Verified 04/19/17 15:40) Past Medical History - General Information source: Patient - Social History Chew tobacco use (# tins/day): No Frequency of alcohol use: None Drug Abuse: None - Past Medical History Cardiac Medical History: Reports: Hx Coronary Artery Disease - Cardiac catheter showed 50% stenosis, Hx Heart Attack, Hx Hypercholesterolemia Denies: Hx Congestive Heart Failure, Hx DVT, Hx Pulmonary Embolism Pulmonary Medical History: Denies: Hx Asthma, Hx COPD Neurological Medical History: Denies: Hx Seizures Endocrine Medical History: Reports: Hx Diabetes Mellitus Type 1, Hx Diabetes Mellitus Type 2, Hx Hypothyroidism. Denies: Hx Hyperthyroidism Renal/ Medical History: Reports: Hx Ovarian Cysts - left side. Denies: Hx Peritoneal Dialysis Malignancy Medical History: GI Medical History: Reports: Hx Gastroesophageal Reflux Disease. Denies: Hx Cirrhosis, Hx Hepatitis Musculoskeltal Medical History: Denies Hx Arthritis, Reports Hx Musculoskeletal Deformity, Reports Hx Musculoskeletal Trauma Skin Medical History: Denies Hx Eczema, Denies Hx Psoriasis Psychiatric Medical History: Reports: Hx Depression Traumatic Medical History: Reports: Hx Fractures - left wrist and toes and right knee Infectious Medical History: Denies: Hx Hepatitis Past Surgical History: Reports: Hx Cardiac Catheterization, Hx Section , Hx Gynecologic Surgery - Left oophorectomy, Hx Tubal Ligation - Immunizations Immunizations up to date: Yes Hx Diphtheria, Pertussis, Tetanus Vaccination: Yes - <10 years Review of Systems - Review of Systems Cardiovascular: See HPI Neurological/Psychological: See HPI Physical Exam - Vital signs Vitals: Temp Pulse Resp BP Pulse Ox 97.6 F 95 18 124/76 97 04/19/17 15:38 04/19/17 15:38 04/19/17 15:38 04/19/17 15:38 04/19/17 15:38 - Notes Notes: PHYSICAL EXAMINATION: GENERAL: Chronically ill-appearing, and in no acute distress. Course - Vital Signs Vital signs: Temp Pulse Resp BP Pulse Ox 97.6 F 95 18 124/76 97 04/19/17 15:38 04/19/17 15:38 04/19/17 15:38 04/19/17 15:38 04/19/17 15:38
[2017-04-19 17:23] LABS: APPEARANCE,URINE CLEAR; BILIRUBIN,URINE NEGATIVE (NEGATIVE); GLUCOSE, URINE >=500 mg/dL (NEGATIVE); KETONES,URINE TRACE mg/dL (NEGATIVE); LEUKOCYTE ESTERASE,URINE TRACE (NEGATIVE); NITRITE,URINE NEGATIVE (NEGATIVE); PROTEIN,URINE NEGATIVE (NEGATIVE); URINE SPECIFIC GRAVITY 1.023; UROBILINOGEN,URINE NEGATIVE mg/dL (<2.0)
[2017-04-19 18:06] LABS: ABSOLUTE EOSINOPHILS # (AUTO) 0.2 10^3/uL (0.0-0.6); ABSOLUTE LYMPHOCYTES (AUTO) 2.7 10^3/uL (0.5-4.7); ABSOLUTE MONOCYTES (AUTO) 0.6 10^3/uL (0.1-1.4); ABSOLUTE NEUT (AUTO) 3.5 10^3/uL (1.7-8.2); BASOPHILS % (AUTO) 0.6 % (0-2); EOSINOPHILS % (AUTO) 3.4 % (0-6); HEMATOCRIT 39.7 % (36.0-47.0); HEMOGLOBIN 13.3 g/dL (12.0-15.5); HGB HCT DIFFERENCE 0.2; MEAN CORPUSCULAR HEMOGLOBIN 30.5 pg (27.0-33.4); MEAN CORPUSCULAR HGB CONC 33.5 g/dL (32.0-36.0); MEAN CORPUSCULAR VOLUME 91 fl (80-97); MONOCYTES % (AUTO) 8.7 % (3-13); RED BLOOD COUNT 4.37 10^6/uL (3.72-5.28); RED CELL DISTRIBUTION WIDTH 13.9 % (11.5-14.0); SEGMENTED NEUTROPHILS % (AUTO) 49.3 % (42-78); WHITE BLOOD COUNT 7.2 10^3/uL (4.0-10.5)
[2017-04-19 18:17] LABS: ALANINE AMINOTRANSFERASE 23 U/L (9-52); ALBUMIN 4.1 g/dL (3.5-5.0); ALKALINE PHOSPHATASE 59 U/L (38-126); ANION GAP 10 (5-19); ASPARTATE AMINO TRANSFERASE 36 U/L (14-36); BILIRUBIN,DIRECT 0.3 mg/dL (0.0-0.4); BILIRUBIN,TOTAL 0.8 mg/dL (0.2-1.3); BLOOD UREA NITROGEN 15 mg/dL (7-20); CALCIUM 10.6 mg/dL (8.4-10.2); CARBON DIOXIDE 25 mmol/L (22-30); CHLORIDE 100 mmol/L (98-107); CREATININE RESULT 0.79 mg/dL (0.52-1.25); POTASSIUM 4.8 mmol/L (3.6-5.0); SODIUM 134.5 mmol/L (137-145)
[2017-04-19 18:29] LABS: GLUCOSE 424 mg/dL (75-110)
[2017-04-19] MEDS ORDERED: INSULIN REG, HUMAN 100 UNIT/ML 3 ML VIAL (PYX) SUBCUT ONE (19:23)
--- NOTE | 2017-04-19 19:47 | ER Document Report ---
ED Blood Pressure Problem - General Chief Complaint: Low Blood Pressure Stated Complaint: BLOOD PRESSURE ISSUES Time Seen by Provider: 04/19/17 16:26 Mode of Arrival: Wheelchair Information source: Patient Notes: Pt is a 56 year old female with [place]'s, chronic hypotension and DM who presents to the ER today for low blood pressure of 88/50 at doctor yesterday and again this morning. She states for the past 3 days she has just felt weak, lethargic and then this morning had an episode of vomiting because the room "felt like it was spinning. She denies any chest pain at all, shortness of breath. TRAVEL OUTSIDE OF THE [place] IN LAST 30 DAYS: No - Related Data Allergies/Adverse Reactions: azithromycin [From Zithromax] Allergy (Unknown, Verified 04/19/17 15:40) Past Medical History - General Information source: Patient - Social History Smoking Status: Never Smoker Chew tobacco use (# tins/day): No Frequency of alcohol use: None Drug Abuse: None Family History: CAD, Hypertension, Malignancy - Past Medical History Cardiac Medical History: Reports: Hx Coronary Artery Disease - Cardiac catheter showed 50% stenosis, Hx Heart Attack, Hx Hypercholesterolemia Denies: Hx Congestive Heart Failure, Hx DVT, Hx Pulmonary Embolism Pulmonary Medical History: Denies: Hx Asthma, Hx COPD Neurological Medical History: Denies: Hx Seizures Endocrine Medical History: Reports: Hx Diabetes Mellitus Type 1, Hx Diabetes Mellitus Type 2, Hx Hypothyroidism. Denies: Hx Hyperthyroidism Renal/ Medical History: Reports: Hx Ovarian Cysts - left side. Denies: Hx Peritoneal Dialysis Malignancy Medical History: GI Medical History: Reports: Hx Gastroesophageal Reflux Disease. Denies: Hx Cirrhosis, Hx Hepatitis Musculoskeltal Medical History: Denies Hx Arthritis, Reports Hx Musculoskeletal Deformity, Reports Hx Musculoskeletal Trauma Skin Medical History: Denies Hx Eczema, Denies Hx Psoriasis Psychiatric Medical History: Reports: Hx Depression Traumatic Medical History: Reports: Hx Fractures - left wrist and toes and right knee Infectious Medical History: Denies: Hx Hepatitis Past Surgical History: Reports: Hx Cardiac Catheterization, Hx Section , Hx Gynecologic Surgery - Left oophorectomy, Hx Tubal Ligation - Immunizations Immunizations up to date: Yes Hx Diphtheria, Pertussis, Tetanus Vaccination: Yes - <10 years Hx Pneumococcal Vaccination: 07/17/11 Review of Systems - Review of Systems Constitutional: See HPI EENT: No symptoms reported Cardiovascular: No symptoms reported Respiratory: No symptoms reported Gastrointestinal: No symptoms reported Genitourinary: No symptoms reported Female Genitourinary: No symptoms reported Musculoskeletal: No symptoms reported Skin: No symptoms reported Hematologic/Lymphatic: No symptoms reported Neurological/Psychological: No symptoms reported Physical Exam - Vital signs Vitals: Temp Pulse Resp BP Pulse Ox 97.6 F 95 18 124/76 97 04/19/17 15:38 04/19/17 15:38 04/19/17 15:38 04/19/17 15:38 04/19/17 15:38 - Notes Notes: PHYSICAL EXAMINATION: GENERAL: Well-appearing and in no acute distress. HEAD: Atraumatic, normocephalic. EYES: Pupils equal round and reactive to light, extraocular movements intact, sclera anicteric, conjunctiva are normal. NECK: Normal range of motion, supple without lymphadenopathy LUNGS: CTAB and equal. No wheezes rales or rhonchi. HEART: Regular rate and rhythm without murmurs ABDOMEN: Soft, no tenderness. No guarding, no rebound BACK: no vertebral tenderness, normal ROM GI/: no CVA tenderness EXTREMITIES: Normal range of motion, no pitting edema. No cyanosis. NEUROLOGICAL: Cranial nerves grossly intact. Normal sensory/motor exams. PSYCH: Normal mood, normal affect. SKIN: Warm, Dry, normal turgor, no rashes or lesions noted Course - Re-evaluation Re-evalutation: 04/19/17 19:45 Pt had completely normal vital signs here, 124/76 blood pressure. Her blood sugar was 424 on CMP, she dosed herself on her pump as she is a type 1 diabetic with a pump, she feels great and would like to go home. Her anion gap was normal and she isn't having any nausea/vomiting. - Vital Signs Vital signs: Temp Pulse Resp BP Pulse Ox 97.6 F 95 18 124/76 97 04/19/17 15:38 04/19/17 15:38 04/19/17 15:38 04/19/17 15:38 04/19/17 15:38 - Laboratory Result Diagrams: 04/19/17 17:47 04/19/17 17:47 Laboratory results interpreted by me: 04/19/17 04/19/17 04/19/17 16:56 17:47 17:47 Plt Count 143 L Sodium 134.5 L Glucose 424 H* Calcium 10.6 H Urine Glucose (UA) >=500 H Urine Ketones TRACE H Ur Leukocyte Esterase TRACE H Discharge - Discharge Clinical Impression: Elevated blood sugar Condition: Stable Disposition: HOME, SELF-CARE Additional Instructions: Return immediately for any new or worsening symptoms. Follow up with primary care provider, call tomorrow to make followup appointment.
--- NOTE | 2017-04-19 20:33 | EKG REPORT ---
SEVERITY:- BORDERLINE ECG - SINUS RHYTHM BORDERLINE T ABNORMALITIES, DIFFUSE LEADS : Confirmed by: Alan Sampson MD 19-Apr-2017 20:32:20
[2017-04-19 20:44] VITALS: BP 108/75
== END 2017-04-19 19:54 | disposition home or self-care (01) ==
LOC: ER 15:35
DX: E10.65 Type 1 diabetes mellitus with hyperglycemia (principal); Z96.41 Presence of insulin pump (external) (internal); E27.1 Primary adrenocortical insufficiency; R53.1 Weakness; R53.83 Other fatigue; R11.10 Vomiting, unspecified; I25.10 Atherosclerotic heart disease of native coronary artery without angina pectoris; I25.2 Old myocardial infarction; Z88.1 Allergy status to other antibiotic agents
CPT/HCPCS: 93005; 99285; 36415; 82962; 85025; 80053; 81001; 93010; A9270; J1815

== ENCOUNTER 2018-01-01 12:47 | Emergency (ER) | payer MEDICARE, BC ==
[2018-01-01] MEDS ORDERED: NORMAL SALINE 1000 ML 1,000 ML IV ONE (13:52)
--- NOTE | 2018-01-01 13:53 | ER Document Report ---
ED Medical Screen (RME) - General Chief Complaint: Weakness Stated Complaint: WEAKNESS Time Seen by Provider: 01/01/18 13:27 Notes: The patient is a 57 yo female, PMHx Type 1 DM, [place]'s, Iron-deficiency anemia , presents with generalized weakness for a week and 5 pounds weight loss in 1 week. She is continuing to have increased weight loss. PE: Tachycardia, CTAB, nontender abdomen I have greeted and performed a rapid initial assessment of this patient. A comprehensive ED assessment and evaluation of the patient, analysis of test results and completion of the medical decision making process will be conducted by additional ED providers. TRAVEL OUTSIDE OF THE [place] IN LAST 30 DAYS: No - Related Data Allergies/Adverse Reactions: azithromycin [From Zithromax] Allergy (Unknown, Verified 01/01/18 12:48) Home Medications: novolog, synthroid, prozac, eye drops, amirex, hydrocorisone. Past Medical History - Social History Chew tobacco use (# tins/day): No Frequency of alcohol use: None Drug Abuse: Marijuana - Past Medical History Cardiac Medical History: Reports: Hx Coronary Artery Disease - Cardiac catheter showed 50% stenosis, Hx Heart Attack, Hx Hypercholesterolemia Denies: Hx Congestive Heart Failure, Hx DVT, Hx Pulmonary Embolism Pulmonary Medical History: Denies: Hx Asthma, Hx COPD Neurological Medical History: Denies: Hx Seizures Endocrine Medical History: Reports: Hx Diabetes Mellitus Type 1, Hx Diabetes Mellitus Type 2, Hx Hypothyroidism. Denies: Hx Hyperthyroidism Renal/ Medical History: Reports: Hx Ovarian Cysts - left side. Denies: Hx Peritoneal Dialysis Malignancy Medical History: GI Medical History: Reports: Hx Gastroesophageal Reflux Disease. Denies: Hx Cirrhosis, Hx Hepatitis, Hx Pancreatitis Musculoskeltal Medical History: Denies Hx Arthritis, Reports Hx Musculoskeletal Deformity, Reports Hx Musculoskeletal Trauma Skin Medical History: Denies Hx Eczema, Denies Hx Psoriasis Psychiatric Medical History: Reports: Hx Depression Traumatic Medical History: Reports: Hx Fractures - left wrist and toes and right knee Infectious Medical History: Denies: Hx Hepatitis Past Surgical History: Reports: Hx Cardiac Catheterization, Hx Section , Hx Gynecologic Surgery - Left oophorectomy, Hx Tubal Ligation - Immunizations Immunizations up to date: Yes Hx Diphtheria, Pertussis, Tetanus Vaccination: Yes - <10 years Physical Exam - Vital signs Vitals: Temp Pulse Resp BP Pulse Ox 98.3 F 114 H 17 90/57 L 99 01/01/18 12:51 01/01/18 12:51 01/01/18 12:51 01/01/18 12:51 01/01/18 12:51 Course - Vital Signs Vital signs: Temp Pulse Resp BP Pulse Ox 98.3 F 114 H 17 90/57 L 99 01/01/18 12:51 01/01/18 12:51 01/01/18 12:51 01/01/18 12:51 01/01/18 12:51 Doctor's Discharge - Discharge Referrals: GURINDER MENG MD [Primary Care Provider] - Follow up as needed
[2018-01-01 14:46] LABS: ABSOLUTE BASOPHILS # (AUTO) 0.1 10^3/uL (0.0-0.2); ABSOLUTE EOSINOPHILS # (AUTO) 0.5 10^3/uL (0.0-0.6); ABSOLUTE LYMPHOCYTES (AUTO) 2.2 10^3/uL (0.5-4.7); ABSOLUTE MONOCYTES (AUTO) 0.6 10^3/uL (0.1-1.4); ABSOLUTE NEUT (AUTO) 2.9 10^3/uL (1.7-8.2); ABSOLUTE RETICS # 0.061 10^6/uL (0.028-0.122); BASOPHILS % (AUTO) 1.2 % (0-2); EOSINOPHILS % (AUTO) 7.4 % (0-6); HEMATOCRIT 40.6 % (36.0-47.0); HEMOGLOBIN 13.7 g/dL (12.0-15.5); LYMPHOCYTES % (AUTO) 35.1 % (13-45); MEAN CORPUSCULAR HEMOGLOBIN 30.3 pg (27.0-33.4); MEAN CORPUSCULAR HGB CONC 33.7 g/dL (32.0-36.0); MEAN CORPUSCULAR VOLUME 90 fl (80-97); MONOCYTES % (AUTO) 9.7 % (3-13); PLATELET COUNT 112 10^3/uL (150-450); RED BLOOD COUNT 4.51 10^6/uL (3.72-5.28); RED CELL DISTRIBUTION WIDTH 13.2 % (11.5-14.0); RETICULOCYTE COUNT (AUTO) 1.35 % (0.66-2.85); SEGMENTED NEUTROPHILS % (AUTO) 46.6 % (42-78); TOTAL CELLS COUNTED % (AUTO) 100 %; WHITE BLOOD COUNT 6.3 10^3/uL (4.0-10.5)
--- NOTE | 2018-01-01 14:56 | ER Document Report ---
ED General - General Chief Complaint: Weakness Stated Complaint: WEAKNESS Time Seen by Provider: 01/01/18 13:27 Mode of Arrival: Ambulatory Information source: Patient Notes: 57-year-old female diabetic history of [place]'s presents with complaints of generalized weakness of one-month duration. Patient is being followed by her street openings inspector Dr. Rosales who did call her to let her know that her vitamin D level was significant only low which they believe is a cause of her weakness. Patient notes significant weight loss over the past few months. Patient does have a history of celiac disease has been vomiting, she notes her last colonoscopy was 4 years ago TRAVEL OUTSIDE OF THE [place] IN LAST 30 DAYS: No - HPI Onset: Other Onset/Duration: Persistent Quality of pain: No pain Severity: Mild Pain Level: Denies Associated symptoms: Nausea, Vomiting, Weakness Exacerbated by: Denies Relieved by: Denies Similar symptoms previously: Yes Recently seen / treated by doctor: Yes - Related Data Allergies/Adverse Reactions: azithromycin [From Zithromax] Allergy (Unknown, Verified 01/01/18 12:48) Home Medications: novolog, synthroid, prozac, eye drops, amirex, hydrocorisone. Past Medical History - Social History Smoking Status: Never Smoker Cigarette use (# per day): No Chew tobacco use (# tins/day): No Smoking Education Provided: No Frequency of alcohol use: None Drug Abuse: Marijuana Family History: CAD, Hypertension, Malignancy Patient has suicidal ideation: No Patient has homicidal ideation: No - Past Medical History Cardiac Medical History: Reports: Hx Coronary Artery Disease - Cardiac catheter showed 50% stenosis, Hx Heart Attack, Hx Hypercholesterolemia Denies: Hx Congestive Heart Failure, Hx DVT, Hx Pulmonary Embolism Pulmonary Medical History: Denies: Hx Asthma, Hx COPD Neurological Medical History: Denies: Hx Seizures Endocrine Medical History: Reports: Hx Diabetes Mellitus Type 1, Hx Diabetes Mellitus Type 2, Hx Hypothyroidism. Denies: Hx Hyperthyroidism Renal/ Medical History: Reports: Hx Ovarian Cysts - left side. Denies: Hx Peritoneal Dialysis Malignancy Medical History: GI Medical History: Reports: Hx Gastroesophageal Reflux Disease. Denies: Hx Cirrhosis, Hx Hepatitis, Hx Pancreatitis Musculoskeltal Medical History: Denies Hx Arthritis, Reports Hx Musculoskeletal Deformity, Reports Hx Musculoskeletal Trauma Skin Medical History: Denies Hx Eczema, Denies Hx Psoriasis Psychiatric Medical History: Reports: Hx Depression Traumatic Medical History: Reports: Hx Fractures - left wrist and toes and right knee Infectious Medical History: Denies: Hx Hepatitis Past Surgical History: Reports: Hx Cardiac Catheterization, Hx Section , Hx Gynecologic Surgery - Left oophorectomy, Hx Tubal Ligation - Immunizations Immunizations up to date: Yes Hx Diphtheria, Pertussis, Tetanus Vaccination: Yes - <10 years Hx Pneumococcal Vaccination: 07/17/11 Review of Systems - Review of Systems Notes: REVIEW OF SYSTEMS: CONSTITUTIONAL : Admits to weight loss EENT: Denies eye, ear, throat, or mouth pain or symptoms. Denies nasal or sinus congestion or discharge. Denies throat, tongue, or mouth swelling or difficulty swallowing. CARDIOVASCULAR: Denies chest pain. Denies palpitations or racing or irregular heart beat. Denies ankle edema. RESPIRATORY: Denies cough, cold, or chest congestion. Denies shortness of breath, difficulty breathing, or wheezing. GASTROINTESTINAL: Admits to nausea vomiting GENITOURINARY: Denies difficulty urinating, painful urination, burning, frequency, blood in urine, or discharge. FEMALE GENITOURINARY: Denies vaginal bleeding, heavy or abnormal periods, irregular periods. Denies vaginal discharge or odor. MUSCULOSKELETAL: Denies back or neck pain or stiffness. Denies joint pain or swelling. SKIN: Denies rash, lesions or sores. HEMATOLOGIC : Denies easy bruising or bleeding. LYMPHATIC: Denies swollen, enlarged glands. NEUROLOGICAL: Admits to generalized weakness PSYCHIATRIC: Denies anxiety or stress. Denies depression, suicidal ideation, or homicidal ideation. ALL OTHER SYSTEMS REVIEWED AND NEGATIVE. PHYSICAL EXAMINATION: GENERAL: Very thin female HEAD: Atraumatic, normocephalic. EYES: Pupils equal round and reactive to light, extraocular movements intact, conjunctiva are normal. ENT: Nares patent, oropharynx clear without exudates. Moist mucous membranes. NECK: Normal range of motion, supple without lymphadenopathy LUNGS: Breath sounds clear to auscultation bilaterally and equal. No wheezes rales or rhonchi. HEART: Regular rate and rhythm without murmurs ABDOMEN: Soft, nontender, nondistended abdomen. No guarding, no rebound. No masses appreciated. Female : deferred Musculoskeletal: Normal range of motion, no pitting or edema. No cyanosis. NEUROLOGICAL: Cranial nerves grossly intact. Normal speech, normal gait. Normal sensory, motor exams diabetic monitor device in place PSYCH: Normal mood, normal affect. SKIN: Warm, Dry, normal turgor, no rashes or lesions noted. Dictation was performed using [employer] voice recognition software Physical Exam - Vital signs Vitals: Temp Pulse Resp BP Pulse Ox 98.3 F 114 H 17 90/57 L 99 01/01/18 12:51 01/01/18 12:51 01/01/18 12:51 01/01/18 12:51 01/01/18 12:51 Course - Re-evaluation Re-evalutation: 01/01/18 14:53 Patient's presentation would be most consistent with vitamin D deficiency however given her weight loss I will perform CT imaging to rule out any masses 01/01/18 18:44 Patient's lab work noted no severe abnormalities, CTs were performed no masses were noted, I believe the patient's weakness is in fact due to her vitamin D deficiency. She will be discharged home as she already has prescriptions for medications After performing a Medical Screening Examination, I estimate there is LOW risk for INTRACRANIAL HEMORRHAGE, ISCHEMIC CVA, MALIGNANT DYSRHYTHMIA, ACUTE CORONARY SYNDROME, MENINGITIS, PULMONARY EMBOLISM, or SEPSIS thus I consider the discharge disposition reasonable. I have reevaluated this patient multiple times and no significant life threatening changes are noted. The patient and I have discussed the diagnosis and risks, and we agree with discharging home with close follow-up with the understanding that symptoms and presentations can change. We also discussed returning to the Emergency Department immediately if new or worsening symptoms occur. We have discussed the symptoms which are most concerning (e.g., changing or worsening pain, weakness, vomiting, fever) that necessitate immediate return. - Vital Signs Vital signs: Temp Pulse Resp BP Pulse Ox 98.3 F 114 H 17 90/57 L 99 01/01/18 12:51 01/01/18 12:51 01/01/18 12:51 01/01/18 12:51 01/01/18 12:51 - Laboratory Result Diagrams: 01/01/18 14:26 01/01/18 15:35 Laboratory results interpreted by me: 01/01/18 01/01/18 14:26 15:35 Plt Count 112 L Eosinophils % 7.4 H Sodium 134.3 L Glucose 319 H TIBC 223 L Total Protein 6.0 L - Diagnostic Test Radiology reviewed: Image reviewed - No acute abnormalities noted on CT abdomen pelvis chest with IV contrast, Reports reviewed Discharge - Discharge Clinical Impression: Generalized weakness Condition: Stable Disposition: HOME, SELF-CARE Referrals: GURINDER MENG MD [Primary Care Provider] - Follow up tomorrow
[2018-01-01 15:59] LABS: ALANINE AMINOTRANSFERASE 20 U/L (9-52); ALBUMIN 3.5 g/dL (3.5-5.0); ALKALINE PHOSPHATASE 68 U/L (38-126); ANION GAP 11 (5-19); ASPARTATE AMINO TRANSFERASE 24 U/L (14-36); BILIRUBIN,DIRECT 0.3 mg/dL (0.0-0.4); BILIRUBIN,TOTAL 0.7 mg/dL (0.2-1.3); BLOOD UREA NITROGEN 11 mg/dL (7-20); CALCIUM 8.9 mg/dL (8.4-10.2); CARBON DIOXIDE 25 mmol/L (22-30); CHLORIDE 98 mmol/L (98-107); GLUCOSE 319 mg/dL (75-110); POTASSIUM 4.4 mmol/L (3.6-5.0); SODIUM 134.3 mmol/L (137-145)
[2018-01-01 16:00] LABS: IRON(TIBC) 63.2 ug/dL (37-170)
--- NOTE | 2018-01-01 18:38 | RADIOLOGY REPORT (SQ) ---
EXAM DESCRIPTION: CT CHEST WITH COMPLETED DATE/TIME: 01/01/2018 6:25 pm REASON FOR STUDY: weakness, loss of weight COMPARISON: None. TECHNIQUE: CT scan of the chest performed using helical scanning technique with dynamic intravenous contrast injection. Images reviewed with lung, soft tissue and bone windows. Reconstructed coronal and sagittal MPR images reviewed. All images stored on PACS. All CT scanners at this facility use dose modulation, iterative reconstruction, and/or weight based d osing when appropriate to reduce radiation dose to as low as reasonably achievable (ALARA). [facility]: Dose Right [facility]: CareDose [facility]: Dose Right [facility]: Teradose 4D [facility]: [employer] CONTRAST TYPE AND DOSE: 42 mL Isovue 370 RENAL FUNCTION: Not available RADIATION DOSE: . LIMITATIONS: None. FINDINGS: LUNGS AND PLEURA: No opacities, nodules, masses. No pneumothorax. No effusions. HILAR AND MEDIASTINAL STRUCTURES: No identified masses or abnormal nodes. HEART AND VASCULAR STRUCTURES: No aneurysm or dissection. No central pulmonary emboli. No pericardi al effusion. HARDWARE: None in the chest. UPPER ABDOMEN: See results under abdominal CT scan THYROID AND OTHER SOFT TISSUES: No masses. No adenopathy. BONES: No significant finding. OTHER: No other significant finding. IMPRESSION: No significant intrathoracic abnormalities were identified. Findings as noted above TECHNICAL DOCUMENTATION: JOB ID: [id number] Quality ID # [id number]: Final reports with documentation of one or more dose reduction techniques (e.g., Au tomated exposure control, adjustment of the mA and/or kV according to patient size, use of iterative reconstruction technique) 2010 [employer]- All Rights Reserved Reading location - IP/workstation name: [email or web address]
--- NOTE | 2018-01-01 18:40 | RADIOLOGY REPORT (SQ) ---
EXAM DESCRIPTION: CT ABD/PELVIS WITH IV ONLY COMPLETED DATE/TIME: 01/01/2018 6:25 pm REASON FOR STUDY: weakness, loss of weight COMPARISON: None. TECHNIQUE: CT scan of the abdomen and pelvis performed using helical scanning technique with dynamic intravenous contrast injection. No oral contrast. Images reviewed with lung, soft tissue, and bone windows. Reconstructed coronal and sagittal MPR images reviewed. Delayed images for evaluation of the urinary system also acquired. All images stored on PACS. All CT scanners at this facility use dose modulation, iterative reconstruction, and/or weight based d osing when appropriate to reduce radiation dose to as low as reasonably achievable (ALARA). [facility]: Dose Right [facility]: CareDose [facility]: Dose Right [facility]: Teradose 4D [facility]: [employer] CONTRAST TYPE AND DOSE: contrast/concentration: Isovue 370.00 mg/ml; Total Contrast Delivered: 42.0 ml; Total Saline Delivered: 65.0 ml RENAL FUNCTION: Not reported. RADIATION DOSE: CT Rad equipment meets quality standard of care and radiation dose reduction techniq ues were employed. CTDIvol: 4.8 mGy. DLP: 599 mGy-cm.. LIMITATIONS: None. FINDINGS: LOWER CHEST: See separate report of the CT of the chest. LIVER: Normal size. No masses. No dilated ducts. SPLEEN: Normal size. No focal lesions. PANCREAS: No masses. No significant calcifications. No adjacent inflammation or peripancreatic fluid collections. Pancreatic duct not dilated. GALLBLADDER: No identified stones by CT criteria. No inflammatory changes to suggest cholecystitis. ADRENAL GLANDS: No significant masses or asymmetry. RIGHT KIDNEY AND URETER: No solid masses. No significant calcifications. No hydronephrosis or hyd roureter. LEFT KIDNEY AND URETER: No solid masses. No significant calcifications. No hydronephrosis or hydr oureter. AORTA AND VESSELS: No aneurysm. No dissection. Renal arteries, SMA, celiac without stenosis. RETROPERITONEUM: No retroperitoneal adenopathy, hemorrhage or masses. BOWEL AND PERITONEAL CAVITY: A moderate amount of fecal material is present. No bowel mass is seen. No inflammatory changes are appreciated. APPENDIX: Normal. PELVIS: The urinary bladder is somewhat distended. No pelvic masses. No free fluid. ABDOMINAL WALL: No masses. No hernias. BONES: No significant or acute findings. OTHER: No other significant finding. IMPRESSION: No acute finding is seen in the abdomen or pelvis. The urinary bladder is somewhat dist ended. TECHNICAL DOCUMENTATION: JOB ID: [id number] Quality ID # [id number]: Final reports with documentation of one or more dose reduction techniques (e.g., Au tomated exposure control, adjustment of the mA and/or kV according to patient size, use of iterative reconstruction technique) 2010 [employer]- All Rights Reserved Reading location - IP/workstation name: [email or web address]
[2018-01-01 19:22] VITALS: BP 103/60
== END 2018-01-01 19:22 | disposition home or self-care (01) ==
LOC: ER 12:47
DX: E03.9 Hypothyroidism, unspecified (principal); R53.1 Weakness; R11.2 Nausea with vomiting, unspecified; R63.4 Abnormal weight loss; Z68.1 Body mass index [BMI] 19.9 or less, adult; E27.1 Primary adrenocortical insufficiency; E11.9 Type 2 diabetes mellitus without complications; Z79.4 Long term (current) use of insulin; Z79.52 Long term (current) use of systemic steroids; Z79.899 Other long term (current) drug therapy; I25.10 Atherosclerotic heart disease of native coronary artery without angina pectoris; I25.2 Old myocardial infarction
CPT/HCPCS: 99285; 96360; 36415; 82607; 82728; 82746; 83540; 83550; 85025; 85045; 80053; 84466; 71260; 74177; J7030

== ENCOUNTER 2018-02-09 17:31 | Inpatient (IN) | payer MEDICARE, BC ==
[2018-02-09] MEDS ORDERED: NORMAL SALINE 1000 ML 1,000 ML IV PRN (18:07)
[2018-02-09] MEDS ORDERED: ONDANSETRON 4 MG TAB.RAPDIS PO ONE (18:08)
[2018-02-09] MEDS ORDERED: HYDROCORTISONE SOD SUCCINATE INJ/PF 100 MG/2 ML SDV IV ONE (18:08)
--- NOTE | 2018-02-09 18:10 | ER Document Report ---
ED Medical Screen (RME) - General Chief Complaint: Weakness Stated Complaint: FEELS UNWELL Time Seen by Provider: 02/09/18 18:03 Mode of Arrival: Ambulatory Information source: Patient Notes: This is a 57-year-old female with a history of Arthur's disease ( fludrocortisone, hydrocortisone), insulin requiring diabetes (insulin drip), scoliosis and celiac disease. Patient presenting to the ER with complaints of dizziness, weakness, sensation of passing out. Patient states these are all symptoms of when she has had an adrenal crisis in the past. Vision states her blood pressure is normally on the low side (in the 90s systolic). Patient denies diarrhea, fever, abdominal pain. I have greeted and performed a rapid initial assessment of this patient. A comprehensive ED assessment and evaluation of the patient, analysis of test results and completion of medical decision making process we will be contacted by additional ED providers. Note: Patient's EKG shows inverted T's globally which appear changed from an EKG performed in April. So it is unclear when these changes have occurred in this past year. I have added on cardiac enzymes. She was not complaining of chest pain or shortness of breath at all while in triage. TRAVEL OUTSIDE OF THE [place] IN LAST 30 DAYS: No - Related Data Allergies/Adverse Reactions: azithromycin [From Zithromax] Allergy (Unknown, Verified 02/09/18 17:33) Past Medical History - Past Medical History Cardiac Medical History: Reports: Hx Coronary Artery Disease - Cardiac catheter showed 50% stenosis, Hx Heart Attack, Hx Hypercholesterolemia Denies: Hx Congestive Heart Failure, Hx DVT, Hx Pulmonary Embolism Pulmonary Medical History: Denies: Hx Asthma, Hx COPD Neurological Medical History: Denies: Hx Seizures Endocrine Medical History: Reports: Hx Diabetes Mellitus Type 1, Hx Diabetes Mellitus Type 2, Hx Hypothyroidism. Denies: Hx Hyperthyroidism Renal/ Medical History: Reports: Hx Ovarian Cysts - left side. Denies: Hx Peritoneal Dialysis Malignancy Medical History: GI Medical History: Reports: Hx Gastroesophageal Reflux Disease. Denies: Hx Cirrhosis, Hx Hepatitis, Hx Pancreatitis Musculoskeltal Medical History: Denies Hx Arthritis, Reports Hx Musculoskeletal Deformity, Reports Hx Musculoskeletal Trauma Skin Medical History: Denies Hx Eczema, Denies Hx Psoriasis Psychiatric Medical History: Reports: Hx Depression Traumatic Medical History: Reports: Hx Fractures - left wrist and toes and right knee Infectious Medical History: Denies: Hx Hepatitis Past Surgical History: Reports: Hx Cardiac Catheterization, Hx Section , Hx Gynecologic Surgery - Left oophorectomy, Hx Tubal Ligation - Immunizations Immunizations up to date: Yes Hx Diphtheria, Pertussis, Tetanus Vaccination: Yes - <10 years Physical Exam - Vital signs Vitals: Temp Pulse Resp BP Pulse Ox 99.0 F 124 H 20 93/59 L 96 02/09/18 17:50 02/09/18 17:50 02/09/18 17:50 02/09/18 17:50 02/09/18 17:50 Course - Vital Signs Vital signs: Temp Pulse Resp BP Pulse Ox 99.0 F 124 H 20 93/59 L 96 02/09/18 17:50 02/09/18 17:50 02/09/18 17:50 02/09/18 17:50 02/09/18 17:50
--- NOTE | 2018-02-09 19:36 | ER Document Report ---
ED General - General Chief Complaint: Weakness Stated Complaint: FEELS UNWELL Time Seen by Provider: 02/09/18 18:03 Mode of Arrival: Ambulatory Notes: Patient is a 57-year-old female with a history of [place]'s disease that comes emergency department for chief complaint of possible [place]'s crisis. She states she has felt worsening dizziness, weakness, and lightheadedness especially when she stands up since yesterday. She vomited twice this evening. She is on fludrocortisone, hydrocortisone, follows with endocrinology Dr. Tuttle in [place]. She also has a history of insulin-dependent diabetes, celiac disease, CAD with DC, however she denies fever, cough, chest pain, shortness of breath, passing out. TRAVEL OUTSIDE OF THE [place] IN LAST 30 DAYS: No - Related Data Allergies/Adverse Reactions: azithromycin [From Zithromax] Allergy (Unknown, Verified 02/09/18 17:33) Past Medical History - General Information source: Patient - Social History Smoking Status: Never Smoker Frequency of alcohol use: None Drug Abuse: None Lives with: Family Family History: CAD, Hypertension, Malignancy Patient has suicidal ideation: No Patient has homicidal ideation: No - Past Medical History Cardiac Medical History: Reports: Hx Coronary Artery Disease - Cardiac catheter showed 50% stenosis, Hx Heart Attack, Hx Hypercholesterolemia Denies: Hx Congestive Heart Failure, Hx DVT, Hx Pulmonary Embolism Pulmonary Medical History: Denies: Hx Asthma, Hx COPD Neurological Medical History: Denies: Hx Seizures Endocrine Medical History: Reports: Hx Diabetes Mellitus Type 1, Hx Diabetes Mellitus Type 2, Hx Hypothyroidism. Denies: Hx Hyperthyroidism Renal/ Medical History: Reports: Hx Ovarian Cysts - left side. Denies: Hx Peritoneal Dialysis Malignancy Medical History: GI Medical History: Reports: Hx Gastroesophageal Reflux Disease. Denies: Hx Cirrhosis, Hx Hepatitis, Hx Pancreatitis Musculoskeltal Medical History: Denies Hx Arthritis, Reports Hx Musculoskeletal Deformity, Reports Hx Musculoskeletal Trauma Skin Medical History: Denies Hx Eczema, Denies Hx Psoriasis Psychiatric Medical History: Reports: Hx Depression Traumatic Medical History: Reports: Hx Fractures - left wrist and toes and right knee Infectious Medical History: Denies: Hx Hepatitis Past Surgical History: Reports: Hx Cardiac Catheterization, Hx Section , Hx Gynecologic Surgery - Left oophorectomy, Hx Tubal Ligation - Immunizations Immunizations up to date: Yes Hx Diphtheria, Pertussis, Tetanus Vaccination: Yes - <10 years Hx Pneumococcal Vaccination: 07/17/11 Review of Systems - Review of Systems Constitutional: See HPI EENT: No symptoms reported Cardiovascular: See HPI Respiratory: No symptoms reported Gastrointestinal: See HPI Genitourinary: No symptoms reported Female Genitourinary: No symptoms reported Musculoskeletal: No symptoms reported Skin: No symptoms reported Hematologic/Lymphatic: No symptoms reported Neurological/Psychological: See HPI Physical Exam - Vital signs Vitals: Temp Pulse Resp BP Pulse Ox 99.0 F 124 H 20 93/59 L 96 02/09/18 17:50 02/09/18 17:50 02/09/18 17:50 02/09/18 17:50 02/09/18 17:50 - Notes Notes: GENERAL: Alert, interacts well. Pale but in no distress. HEAD: Normocephalic, atraumatic. EYES: Pupils equal, round, and reactive to light. Extraocular movements intact. ENT: Oral mucosa moist, tongue midline. [Nares patent, no nasal septal hematoma , TM's intact.] NECK: Full range of motion. Supple. Trachea midline. LUNGS: Clear to auscultation bilaterally, no wheezes, rales, or rhonchi. No respiratory distress. HEART: Tachycardia but normal rhythm. No murmur ABDOMEN: Soft, non-tender. Non-distended. Bowel sounds present in all 4 quadrants. EXTREMITIES: Moves all 4 extremities spontaneously. No edema, normal radial and dorsalis pedis pulses bilaterally. No cyanosis. BACK: no cervical, thoracic, lumbar midline tenderness. No saddle anesthesia, normal distal neurovascular exam. NEUROLOGICAL: Alert and oriented x3. Normal speech. [cranial nerves II through XII grossly intact]. Walks with some instability but no consistent deficit ( does not fall to one side). PSYCH: Normal affect, normal mood. SKIN: Warm, dry, normal turgor. Pale skin. No rashes or lesions noted. Course - Re-evaluation Re-evalutation: Patient initially tachycardic, hypotensive, pale, has vomited twice, reports weakness and lightheadedness, has some instability of gait. Based on patient's history concern for [place]'s crisis. Giving Solu-Cortef, IV fluids. Placing on monitor, workup pending. EKG showing some T-wave inversions which appear new, troponin negative, no chest pain, no shortness of breath, no dizziness unless she is trying to get up and walk. CBC unremarkable, chemistry does show elevated potassium and low sodium although this is not severe. Suggestive of [place]'s pattern. Patient is taking her medications although she states her religious healer says 1 of her doses is not high enough and this was supposed to be adjusted, she also states she is stressed out because her stepmother was diagnosed with cancer. On reevaluation patient is much improved, heart rate is 100, she is smiling and states she does feel much better. However she stands up she still gets unsteady and lightheaded. Will discuss with hospitalist for admission. Discussed with Dr. Callaway. Discussed with Dr. Barrett, internal medicine, [place] [facility] [place] - Vital Signs Vital signs: Temp Pulse Resp BP Pulse Ox 98.1 F 115 H 20 103/65 96 02/10/18 03:23 02/10/18 03:23 02/10/18 03:23 02/10/18 03:23 02/10/18 03:23 - Laboratory Result Diagrams: 02/09/18 19:25 02/09/18 19:25 Laboratory results interpreted by me: 02/09/18 02/09/18 02/09/18 19:25 19:25 20:46 Plt Count 101 L Monocytes % 15.3 H Sodium 135.0 L Potassium 5.4 H Glucose 263 H Urine Glucose (UA) >=500 H Urine Ketones TRACE H Discharge - Discharge Clinical Impression: Lightheadedness, Addisonian crisis Vomiting Qualifiers: Vomiting type: unspecified Vomiting Intractability: unspecified Nausea presence : with nausea Qualified Code(s): R11.2 - Nausea with vomiting, unspecified Condition: Stable Disposition: ADMITTED INPATIENT Admitting Provider: Hospitalist Unit Admitted: [facility]
[2018-02-09 19:42] LABS: ABSOLUTE BASOPHILS # (AUTO) 0.1 10^3/uL (0.0-0.2); ABSOLUTE EOSINOPHILS # (AUTO) 0.3 10^3/uL (0.0-0.6); ABSOLUTE LYMPHOCYTES (AUTO) 1.6 10^3/uL (0.5-4.7); ABSOLUTE MONOCYTES (AUTO) 1.2 10^3/uL (0.1-1.4); ABSOLUTE NEUT (AUTO) 4.7 10^3/uL (1.7-8.2); BASOPHILS % (AUTO) 0.7 % (0-2); EOSINOPHILS % (AUTO) 3.6 % (0-6); HEMATOCRIT 40.4 % (36.0-47.0); HEMOGLOBIN 13.5 g/dL (12.0-15.5); LYMPHOCYTES % (AUTO) 20.1 % (13-45); MEAN CORPUSCULAR HGB CONC 33.4 g/dL (32.0-36.0); MEAN CORPUSCULAR VOLUME 90 fl (80-97); MONOCYTES % (AUTO) 15.3 % (3-13); PLATELET COUNT 101 10^3/uL (150-450); RED BLOOD COUNT 4.51 10^6/uL (3.72-5.28); RED CELL DISTRIBUTION WIDTH 13.4 % (11.5-14.0); SEGMENTED NEUTROPHILS % (AUTO) 60.3 % (42-78); TOTAL CELLS COUNTED % (AUTO) 100 %; WHITE BLOOD COUNT 7.8 10^3/uL (4.0-10.5)
[2018-02-09 20:12] LABS: ALBUMIN 3.9 g/dL (3.5-5.0); GLUCOSE 263 mg/dL (75-110); POTASSIUM 5.4 mmol/L (3.6-5.0); TOTAL PROTEIN 6.4 g/dL (6.3-8.2)
[2018-02-09 20:13] LABS: ALANINE AMINOTRANSFERASE 19 U/L (9-52); ALKALINE PHOSPHATASE 82 U/L (38-126); ANION GAP 12 (5-19); ASPARTATE AMINO TRANSFERASE 24 U/L (14-36); BILIRUBIN,DIRECT 0.2 mg/dL (0.0-0.4); BILIRUBIN,TOTAL 1.3 mg/dL (0.2-1.3); BLOOD UREA NITROGEN 11 mg/dL (7-20); CALCIUM 8.7 mg/dL (8.4-10.2); CARBON DIOXIDE 22 mmol/L (22-30); CHLORIDE 101 mmol/L (98-107)
[2018-02-09 20:24] LABS: CREATINE KINASE MB < 0.22 ng/mL (<4.55); TROPONIN I < 0.012 ng/mL
[2018-02-09 21:05] LABS: APPEARANCE,URINE CLEAR; BILIRUBIN,URINE NEGATIVE (NEGATIVE); COLOR,URINE YELLOW; GLUCOSE, URINE >=500 mg/dL (NEGATIVE); KETONES,URINE TRACE mg/dL (NEGATIVE); LEUKOCYTE ESTERASE,URINE NEGATIVE (NEGATIVE); NITRITE,URINE NEGATIVE (NEGATIVE); PROTEIN,URINE NEGATIVE (NEGATIVE); URINE SPECIFIC GRAVITY 1.014; UROBILINOGEN,URINE NEGATIVE mg/dL (<2.0)
[2018-02-09] MEDS ORDERED: INSULIN REG, HUMAN 100 UNIT/ML 3 ML VIAL (PYX) SUBCUT PRN (21:32)
[2018-02-09] MEDS ORDERED: DEXTROSE 50%-WATER 25 GM/50 ML DISP.SYRIN IV PRN ×2 (21:32)
[2018-02-09] MEDS ORDERED: DEXTROSE 40% GEL 15 GM TUBE PO PRN ×2 (21:32)
[2018-02-09] MEDS ORDERED: GLUCAGON,HUMAN RECOMB 1 MG INJ IM PRN (21:32)
[2018-02-09] MEDS ORDERED: MAG HYDROX/AL HYDROX/SIMETH SUSP 30 ML UDCUP PO PRN (21:33)
[2018-02-09] MEDS ORDERED: IPRATROPIUM/ALBUTEROL 0.5-2.5 MG/3 ML AMPUL NEB PRN (21:33)
[2018-02-09] MEDS ORDERED: ACETAMINOPHEN 325 MG TABLET PO PRN (21:33)
[2018-02-10] MEDS: HEPARIN SOD (PORCINE) 5,000 UNIT/ML 1 ML SYRINGE SUBCUT SCH ×4 (01:29→21:11)
[2018-02-10] MEDS: HYDROCORTISONE SOD SUCCINATE INJ/PF 100 MG/2 ML SDV IV SCH ×4 (01:29→21:15)
[2018-02-10] MEDS: INSULIN LISPRO 100 UNIT/ML 3 ML VIAL SUBCUT PRN ×2 (01:35→08:38)
[2018-02-10] MEDS: NORMAL SALINE 1000 ML 1,000 ML IV SCH ×3 (02:16→21:15)
[2018-02-10 03:10] LABS: CREATINE KINASE MB < 0.22 ng/mL (<4.55); TROPONIN I < 0.012 ng/mL
--- NOTE | 2018-02-10 05:15 | PDOC H&P ---
History of Present Illness Admission Date/PCP: 02/09/18 21:37 GURINDER MENG MD Patient complains of: Fatigue, nausea and vomiting History of Present Illness: TAMAR PAULSON is a 57 year old female with a past medical history of [place] 's disease, panhypopituitary state and insulin-dependent diabetes. Patient presents with 12 hours of excessive fatigue developing abdominal pain nausea and vomiting. Patient denies missing medications, fever, pain or new illness but admits to excessive social stressor learning of terminal illness of her mother. In the emergency room she is found to be hypertensive, tachycardic with hyperkalemia and hyperglycemia she is referred to the hospitalist for admission after receiving symptomatic management, IV fluids and Solu-Cortef. Past Medical History Cardiac Medical History: Reports: Coronary Artery Disease - Cardiac catheter showed 50% stenosis, Myocardial Infarction, Hyperlipidema Denies: Congestive Heart Failure, DVT, Pulmonary Embolism Pulmonary Medical History: Denies: Asthma, Chronic Obstructive Pulmonary Disease (COPD) Neurological Medical History: Denies: Seizures Endocrine Medical History: Reports: Diabetes Mellitus Type 1, Diabetes Mellitus Type 2, Hypothyroidism, Other - [place]'s Denies: Hyperthyroidism Malignancy Medical History: GI Medical History: Reports: Gastroesophageal Reflux Disease Denies: Cirrhosis, Hepatitis Musculoskeltal Medical History: Denies: Arthritis Skin Medical History: Denies: Eczema, Psoriasis Psychiatric Medical History: Reports: Depression Hematology: Reports: Anemia Denies: Hemophilia, Sickle Cell Disease Infectious Medical History: Past Surgical History Past Surgical History: Reports: Amputation, Cardiac Catheterization, Section, Tubal Ligation Social History Lives with: Family Smoking Status: Never Smoker Frequency of Alcohol Use: None Hx Recreational Drug Use: No Drugs: None Hx Prescription Drug Abuse: No - Advance Directive Resuscitation Status: Full Code Family History Family History: CAD, Hypertension, Malignancy Parental Family History Reviewed: Yes Children Family History Reviewed: Yes Sibling(s) Family History Reviewed.: Yes Medication/Allergy Home Medications: Alprazolam [Xanax 0.25 mg Tablet] 0.25 mg PO BID 12/04/16 Brinzolamide/Brimonidine Tart [Simbrinza 1%-0.2% Eye Drops] 1 drop OU BID Cyclobenzaprine HCl [Amrix 15 mg Capsule Sustained Release] 15 mg PO DAILY 12/04 Fludrocortisone Acetate [Florinef 0.1 mg Tablet] 0.1 mg PO BID 12/04/16 Fluoxetine HCl [Prozac] 40 mg PO QAM 12/04/16 Hydrocortisone [Cortef 10 mg Tablet] 25 mg PO TID 12/04/16 Insulin Aspart [Novolog Insulin (Aspart) 100 unit/mL] 0 units SQ .PUMP 12/04/16 Latanoprost [Xalatan 0.005% Oph Soln 2.5 ml] 1 drop OU QHS 12/04/16 Levothyroxine Sodium [Synthroid] 137 mg PO DAILY 12/04/16 Temazepam [Restoril 15 mg Capsule] 15 mg PO QHS 12/04/16 Allergies/Adverse Reactions: azithromycin [From Zithromax] Allergy (Unknown, Verified 02/09/18 17:33) Review of Systems Constitutional: PRESENT: as per HPI, fatigue, weakness. ABSENT: fever(s), headache(s) Eyes: ABSENT: visual disturbances Ears: ABSENT: hearing changes Cardiovascular: ABSENT: chest pain, dyspnea on exertion, edema, orthropnea, palpitations Respiratory: ABSENT: cough, hemoptysis Gastrointestinal: PRESENT: as per HPI, bloating, nausea, other. ABSENT: hematemesis, hematochezia Genitourinary: ABSENT: dysuria, hematuria Musculoskeletal: ABSENT: joint swelling Integumentary: ABSENT: rash, wounds Neurological: ABSENT: abnormal gait, abnormal speech, confusion, dizziness, focal weakness, syncope Psychiatric: ABSENT: anxiety, depression, homidical ideation, suicidal ideation Endocrine: PRESENT: polydipsia, polyuria. ABSENT: cold intolerance, heat intolerance Hematologic/Lymphatic: ABSENT: easy bleeding, easy bruising Physical Exam Vital Signs: Temp Pulse Resp BP Pulse Ox 98.1 F 115 H 20 103/65 96 02/10/18 03:23 02/10/18 03:23 02/10/18 03:23 02/10/18 03:23 02/10/18 03:23 Intake & Output 02/08/18 02/09/18 02/10/18 11:59 11:59 11:59 Weight 39.8 kg General appearance: PRESENT: no acute distress, well-developed, well-nourished Head exam: PRESENT: atraumatic, normocephalic Eye exam: PRESENT: conjunctiva pink, EOMI, PERRLA. ABSENT: scleral icterus Ear exam: PRESENT: normal external ear exam Mouth exam: PRESENT: moist, tongue midline Neck exam: ABSENT: carotid bruit, JVD, lymphadenopathy, thyromegaly Respiratory exam: PRESENT: clear to auscultation kelsey. ABSENT: rales, rhonchi, wheezes Cardiovascular exam: PRESENT: RRR. ABSENT: diastolic murmur, rubs, systolic murmur Pulses: PRESENT: normal dorsalis pedis pul Vascular exam: PRESENT: normal capillary refill GI/Abdominal exam: PRESENT: normal bowel sounds, soft. ABSENT: distended, guarding, mass, organolmegaly, rebound, tenderness Rectal exam: PRESENT: deferred Extremities exam: PRESENT: full ROM. ABSENT: calf tenderness, clubbing, pedal edema Neurological exam: PRESENT: alert, awake, oriented to person, oriented to place , oriented to time, oriented to situation, CN II-XII grossly intact. ABSENT: motor sensory deficit Psychiatric exam: PRESENT: appropriate affect, normal mood. ABSENT: homicidal ideation, suicidal ideation Skin exam: PRESENT: dry, intact, warm. ABSENT: cyanosis, rash Results Laboratory Results: 02/10/18 02/10/18 01:21 01:21 Creatine Kinase 33 CK-MB (CK-2) < 0.22 Troponin I < 0.012 Assessment & Plan - Diagnosis (1) Addisonian crisis Is this a current diagnosis for this admission?: Yes Plan: IMCU admission, continue Solu-Cortef 50 every 8, normal saline challenge, follow -up chemistry evaluate med reconciliation (2) Diabetes mellitus type I Qualifiers: Is this a current diagnosis for this admission?: Yes Plan: IV fluid challenge, Humalog insulin with long-acting regiment. (3) Hyperkalemia Is this a current diagnosis for this admission?: Yes Plan: Secondary to #1, no peak T waves, reevaluate chemistry - Time Time Spent: 50 to 70 Minutes - Inpatient Certification Medical Necessity: Need Close Monitoring Due to Risk of Patient Decompensation
[2018-02-10 08:28] LABS: ABSOLUTE LYMPHOCYTES (AUTO) 0.7 10^3/uL (0.5-4.7); ABSOLUTE MONOCYTES (AUTO) 0.2 10^3/uL (0.1-1.4); ABSOLUTE NEUT (AUTO) 5.1 10^3/uL (1.7-8.2); BASOPHILS % (AUTO) 0.4 % (0-2); HEMATOCRIT 33.2 % (36.0-47.0); LYMPHOCYTES % (AUTO) 10.9 % (13-45); MEAN CORPUSCULAR HEMOGLOBIN 30.5 pg (27.0-33.4); MEAN CORPUSCULAR VOLUME 90 fl (80-97); MONOCYTES % (AUTO) 3.3 % (3-13); RED CELL DISTRIBUTION WIDTH 13.4 % (11.5-14.0); SEGMENTED NEUTROPHILS % (AUTO) 85.4 % (42-78); TOTAL CELLS COUNTED % (AUTO) 100 %
[2018-02-10] MEDS: DOCUSATE SODIUM 100 MG CAPSULE PO SCH ×2 (08:42→17:02)
[2018-02-10 08:44] LABS: ANION GAP 13 (5-19); BLOOD UREA NITROGEN 15 mg/dL (7-20); CALCIUM 7.7 mg/dL (8.4-10.2); CARBON DIOXIDE 18 mmol/L (22-30); CHLORIDE 106 mmol/L (98-107); GLUCOSE 152 mg/dL (75-110); POTASSIUM 4.5 mmol/L (3.6-5.0); SODIUM 137.1 mmol/L (137-145)
[2018-02-10 08:52] LABS: CREATINE KINASE MB < 0.22 ng/mL (<4.55); TROPONIN I < 0.012 ng/mL
[2018-02-10 09:08] LABS: HEMOGLOBIN 11.3 g/dL (12.0-15.5); PLATELET COUNT 94 10^3/uL (150-450)
[2018-02-10 10:54] LABS: FREE T3 2.74 pg/mL (2.77-5.27); FREE T4 (FREE THYROXINE) 1.83 ng/dL (0.78-2.19)
[2018-02-10 11:07] LABS: THYROID STIMULATING HORMONE 0.2 uIU/mL (0.47-4.68)
--- NOTE | 2018-02-10 12:40 | PROGRESS NOTE E ---
Progress Note NAME: TAMAR PAULSON : 1960 AGE: 57Y DATE: 02/09/2018 ROOM: 318 SUBJECTIVE: The patient is a 57-year-old female with a past medical history significant for [place]'s disease, panhypopituitary state, insulin-dependent diabetes. The patient presented with excessive body aches, weakness, nausea, vomiting. She was found to have hypertension, tachycardia and hyperkalemia. Her potassium was 5.4 and she was also acidotic. She was started on IV fluids. The patient takes, at home, Solu-Cortef 25 mg t.i.d., as well as Florinef 0.1 mg b.i.d. The patient received IV fluids and her dose of hydrocortisone was increased to 50 mg. Was started on hydrocortisone 50 mg IV every 8 hours. She is feeling better today. OBJECTIVE: GENERAL: Patient lying in bed, comfortable, not in distress. VITAL SIGNS: Blood pressure 95/53, temperature is 97.8, heart rate is 103, saturation 100% on room air. HEENT: Normocephalic, atraumatic. Pupils equal, round, reactive to light and accommodation bilaterally. Extraocular muscles intact. Ears: Tympanic membranes intact bilaterally. No discharge from the ear. No discharge from the nose. NECK: No JVD. No thyromegaly, no lymphadenopathy. CARDIOVASCULAR: Normal S1, S2. Regular rate and rhythm. No murmur, no gallop. RESPIRATORY: Lungs clear. ABDOMEN: Soft, nontender. MUSCULOSKELETAL: No edema. NEUROLOGIC: Awake, alert. SKIN: No rash. LABORATORY DATA: Sodium 137, potassium 4.5, creatinine 0.6. White blood count is 6, hemoglobin 11, hematocrit 32. ASSESSMENT: 1. RONAL CRISIS. 2. PANHYPOPITUITARISM. 3. DIABETES, TYPE 2. 4. HYPERTENSION. PLAN: The patient was taking Cortef 25 t.i.d. before; now she is placed on hydrocortisone 50 mg t.i.d. Will resume her Florinef to 0.1 mg daily. Continue IV fluids. For weight loss (the patient complained of significant weight loss), she had a normal CT scan of abdomen, pelvis and chest last month. She did have workup for occult malignancy. Will order ESR, CRP, fecal occult blood test. Labs tomorrow morning. DICTATING PHYSICIAN: MARILYN ANDERSON M.D. [id number] PHY#: [id number] ID: [id number] JOB#: [id number] ACCT: [id number] cc: >
[2018-02-10 14:34] LABS: C-REACTIVE PROTEIN 31.2 mg/L (<10.0)
[2018-02-10 14:46] LABS: CREATINE KINASE MB < 0.22 ng/mL (<4.55); TROPONIN I < 0.012 ng/mL
[2018-02-10] MEDS: FLUDROCORTISONE ACETATE 0.1 MG TABLET PO SCH (17:02)
[2018-02-10] MEDS: ONDANSETRON HCL INJ/PF 4 MG/2 ML SDV IV PRN (20:26)
[2018-02-10] MEDS ORDERED: LORAZEPAM 0.5 MG TABLET PO ONE (21:15)
[2018-02-10] MEDS ORDERED: LORAZEPAM INJ 2 MG/1 ML VIAL IV ONE (22:45)
[2018-02-11] MEDS: HEPARIN SOD (PORCINE) 5,000 UNIT/ML 1 ML SYRINGE SUBCUT SCH ×3 (05:10→22:09)
[2018-02-11] MEDS: NORMAL SALINE 1000 ML 1,000 ML IV SCH (06:05)
--- NOTE | 2018-02-11 07:50 | EKG REPORT ---
SEVERITY:- ABNORMAL ECG - SINUS TACHYCARDIA ABNORMAL T, CONSIDER ISCHEMIA, DIFFUSE LEADS BORDERLINE PROLONGED QT INTERVAL : Confirmed by: Alan Sampson MD 11-Feb-2018 07:49:04
[2018-02-11] MEDS: HYDROCORTISONE 10 MG TABLET PO SCH ×3 (11:33→22:08)
[2018-02-11] MEDS: ONDANSETRON HCL INJ/PF 4 MG/2 ML SDV IV PRN (11:36)
[2018-02-11] MEDS: DOCUSATE SODIUM 100 MG CAPSULE PO SCH ×2 (11:36→18:08)
[2018-02-11] MEDS: FLUDROCORTISONE ACETATE 0.1 MG TABLET PO SCH ×2 (11:36→18:07)
[2018-02-11] MEDS: INSULIN LISPRO 100 UNIT/ML 3 ML VIAL SUBCUT PRN ×3 (11:42→22:08)
[2018-02-11] MEDS ORDERED: INSULIN GLARGINE,HUM.REC.ANLOG 1,000 UNIT/10 ML UNIT SUBCUT SCH (14:00)
[2018-02-11] MEDS ORDERED: CLONAZEPAM 1 MG TABLET PO SCH (14:15)
[2018-02-11] MEDS ORDERED: HYDROCORTISONE 10 MG TABLET PO ONE (15:00)
[2018-02-11] MEDS ORDERED: INSULIN GLARGINE,HUM.REC.ANLOG 300 UNIT/3 ML INSULN.PEN SUBCUT ONE (15:00)
[2018-02-11] MEDS ORDERED: CLONAZEPAM 1 MG TABLET PO ONE (15:00)
--- NOTE | 2018-02-11 20:58 | PDOC PROGRESS REPORT ---
Subjective Progress Note for:: 02/11/18 Subjective:: 57-year-old female admitted with [place]'s crisis, hyperkalemia, nausea and vomiting and acidosis. Patient has been down titrated on her steroid therapy. Will up titrate Solu-Cortef given she takes 25 mg 3 times daily at home. Continue Florinef at 0.1 mg p.o. twice daily continue to monitor patient's electrolytes. She is very anxious during the examination. Will attempt to give her low-dose clonazepam once daily. Reason For Visit: VOMITING, LIGHTHEADEDNESS, ADDISONIAN CRISIS Physical Exam Vital Signs: Temp Pulse Resp BP Pulse Ox 97.3 F 105 H 13 96/59 L 100 02/11/18 19:36 02/11/18 19:36 02/11/18 19:36 02/11/18 19:36 02/11/18 19:36 Intake & Output 02/10/18 02/11/18 02/12/18 06:59 06:59 06:59 Intake Total 1092 3765 545 Output Total 950 Balance 1092 2815 545 Weight 39.8 kg 43 kg General appearance: PRESENT: mild distress, thin Head exam: PRESENT: atraumatic, normocephalic Eye exam: PRESENT: EOMI, PERRLA Ear exam: PRESENT: normal external ear exam. ABSENT: drainage Mouth exam: PRESENT: moist, neck supple Throat exam: ABSENT: tonsillar exudate, tonsillogmegaly Neck exam: PRESENT: full ROM. ABSENT: JVD Respiratory exam: ABSENT: rales, rhonchi, wheezes Cardiovascular exam: PRESENT: RRR, +S1, +S2 Pulses: PRESENT: normal carotid pulses, normal dorsalis pedis pul Vascular exam: PRESENT: normal capillary refill. ABSENT: pallor GI/Abdominal exam: PRESENT: soft. ABSENT: mass, rebound, rigid, tenderness Extremities exam: ABSENT: joint swelling, pedal edema, tenderness Musculoskeletal exam: PRESENT: full ROM, normal inspection Neurological exam: PRESENT: alert, oriented to person, oriented to place, oriented to time, oriented to situation Psychiatric exam: PRESENT: anxious. ABSENT: agitated Focused psych exam: PRESENT: restlessness. ABSENT: delusional, pressured speech Skin exam: PRESENT: normal color. ABSENT: mottled Results Laboratory Results: 02/10/18 07:59 02/10/18 07:59 02/10/18 02/10/18 02/10/18 01:21 01:21 07:59 Creatine Kinase 33 32 CK-MB (CK-2) < 0.22 Troponin I < 0.012 02/10/18 02/10/18 02/10/18 07:59 13:39 13:39 Creatine Kinase 30 CK-MB (CK-2) < 0.22 < 0.22 Troponin I < 0.012 < 0.012 Assessment & Plan - Diagnosis (1) Addisonian crisis Is this a current diagnosis for this admission?: Yes Plan: Appears to be improving, will change steroid treatment to her home dosing. She actually takes 25 mg of Cortef 3 times daily at home. Will be corrected to this. Continue Florinef dosing. We will monitor her vital signs and electrolytes. (2) Hyperkalemia Is this a current diagnosis for this admission?: Yes Plan: Resolved. (3) Vomiting and diarrhea Is this a current diagnosis for this admission?: Yes Plan: This appears to be resolved. Denies nausea or vomiting during today's evaluation. - Time Time Spent with patient: 15-24 minutes - Inpatient Certification Based on my medical assessment, after consideration of the patient's comorbidities, presenting symptoms, or acuity I expect that the services needed warrant INPATIENT care.: Yes I certify that my determination is in accordance with my understanding of Medicare's requirements for reasonable and necessary INPATIENT services [42 CFR 412.3e].: Yes Medical Necessity: Significant Comorbidiites Make Outpatient Treatment Too Risky
[2018-02-12 05:20] LABS: HEMATOCRIT 26.3 % (36.0-47.0); MEAN CORPUSCULAR HEMOGLOBIN 30.7 pg (27.0-33.4); MEAN CORPUSCULAR HGB CONC 34.3 g/dL (32.0-36.0); MEAN CORPUSCULAR VOLUME 89 fl (80-97); RED BLOOD COUNT 2.95 10^6/uL (3.72-5.28); RED CELL DISTRIBUTION WIDTH 13.4 % (11.5-14.0); WHITE BLOOD COUNT 11.1 10^3/uL (4.0-10.5)
[2018-02-12] MEDS: HEPARIN SOD (PORCINE) 5,000 UNIT/ML 1 ML SYRINGE SUBCUT SCH ×3 (05:22→21:42)
[2018-02-12] MEDS: HYDROCORTISONE 10 MG TABLET PO SCH ×3 (05:22→21:39)
[2018-02-12 05:38] LABS: ALBUMIN 2.5 g/dL (3.5-5.0); ANION GAP 7 (5-19); BLOOD UREA NITROGEN 15 mg/dL (7-20); CALCIUM 8.3 mg/dL (8.4-10.2); CARBON DIOXIDE 23 mmol/L (22-30); CHLORIDE 111 mmol/L (98-107); GLUCOSE 52 mg/dL (75-110); PHOSPHORUS 2.5 mg/dL (2.5-4.5); POTASSIUM 3.9 mmol/L (3.6-5.0)
[2018-02-12 06:08] LABS: PLATELET COUNT 94 10^3/uL (150-450)
[2018-02-12] MEDS ORDERED: NORMAL SALINE 1000 ML 1,000 ML IV PRN (08:45)
[2018-02-12] MEDS ORDERED: INSULIN GLARGINE,HUM.REC.ANLOG 300 UNIT/3 ML INSULN.PEN SUBCUT SCH (10:00)
[2018-02-12] MEDS: CLONAZEPAM 1 MG TABLET PO SCH (10:50)
[2018-02-12] MEDS: FLUDROCORTISONE ACETATE 0.1 MG TABLET PO SCH ×2 (10:50→17:41)
[2018-02-12] MEDS: DOCUSATE SODIUM 100 MG CAPSULE PO SCH ×2 (10:51→17:44)
[2018-02-12] MEDS: INSULIN LISPRO 100 UNIT/ML 3 ML VIAL SUBCUT PRN ×3 (13:09→21:39)
--- NOTE | 2018-02-12 20:51 | PDOC PROGRESS REPORT ---
Subjective Progress Note for:: 02/12/18 Subjective:: 57-year-old female admitted with [place]'s crisis, hyperkalemia, nausea and vomiting and acidosis. Patient's initial steroid increase has been down titrated to her home dose. Will give patient a fluid bolus today. She stated that she was on Midrin at home. Pharmacy was consulted regarding checking on her last refill of Midrin. They could find no record of this over the past 6 months. Patient has been prone to confusion during the exam. So unclear if Midrin was actively taken at home. Anxiety was better today. Reason For Visit: VOMITING, LIGHTHEADEDNESS, ADDISONIAN CRISIS Physical Exam Vital Signs: Temp Pulse Resp BP Pulse Ox 98.0 F 88 16 103/54 L 96 02/12/18 19:33 02/12/18 19:33 02/12/18 19:33 02/12/18 19:33 02/12/18 19:33 Intake & Output 02/11/18 02/12/18 02/13/18 06:59 06:59 06:59 Intake Total 3765 645 1165 Output Total 950 Balance 2815 645 1165 Weight 43 kg 43.5 kg General appearance: PRESENT: no acute distress, thin Head exam: PRESENT: atraumatic, normocephalic Eye exam: PRESENT: EOMI, PERRLA Ear exam: PRESENT: normal external ear exam. ABSENT: drainage Mouth exam: PRESENT: moist, neck supple Throat exam: ABSENT: post pharyngeal erythema, tonsillar exudate Respiratory exam: ABSENT: accessory muscle use, rales, rhonchi, wheezes Cardiovascular exam: PRESENT: RRR, +S1, +S2 Pulses: PRESENT: normal radial pulses, normal dorsalis pedis pul Vascular exam: PRESENT: normal capillary refill. ABSENT: pallor GI/Abdominal exam: PRESENT: soft. ABSENT: ascites, firm, mass, rigid Extremities exam: ABSENT: calf tenderness, joint swelling Musculoskeletal exam: PRESENT: full ROM, normal inspection Neurological exam: PRESENT: alert, oriented to person, oriented to place, oriented to time, oriented to situation Psychiatric exam: PRESENT: anxious, flat affect Focused psych exam: ABSENT: paranoid, pressured speech Skin exam: PRESENT: normal color. ABSENT: cyanosis, mottled Results Laboratory Results: 02/12/18 04:57 02/12/18 04:57 02/12/18 02/12/18 04:57 04:57 WBC 11.1 H RBC 2.95 L Hgb 9.0 L D Hct 26.3 L MCV 89 MCH 30.7 MCHC 34.3 RDW 13.4 Plt Count 94 L Sodium 141.0 Potassium 3.9 Chloride 111 H Carbon Dioxide 23 Anion Gap 7 BUN 15 Creatinine 0.55 Est GFR ( Amer) > 60 Est GFR (Non-Af Amer) > 60 Glucose 52 L Calcium 8.3 L Phosphorus 2.5 Albumin 2.5 L 02/10/18 02/10/18 02/10/18 01:21 01:21 07:59 Creatine Kinase 33 32 CK-MB (CK-2) < 0.22 Troponin I < 0.012 02/10/18 02/10/18 02/10/18 07:59 13:39 13:39 Creatine Kinase 30 CK-MB (CK-2) < 0.22 < 0.22 Troponin I < 0.012 < 0.012 Assessment & Plan - Diagnosis (1) Addisonian crisis Is this a current diagnosis for this admission?: Yes Plan: Continue current steroid dosing, which is her home dosing. We will give patient IV fluid support today and monitor blood pressure. Her blood pressure was borderline soft this morning. Unable to find a record of patient taking Midrin although she states that she does take this at home. (2) Hyperkalemia Is this a current diagnosis for this admission?: Yes Plan: Resolved (3) Diabetes mellitus type I Qualifiers: Is this a current diagnosis for this admission?: Yes Plan: Escalate Lantus dosing by 2 units, continue sliding scale insulin. (4) Nausea and vomiting Qualifiers: Vomiting type: unspecified Vomiting Intractability: non-intractable Qualified Code(s): R11.2 - Nausea with vomiting, unspecified Is this a current diagnosis for this admission?: Yes Plan: Continue anti-emetics as needed. - Time Time Spent with patient: 15-24 minutes - Inpatient Certification Based on my medical assessment, after consideration of the patient's comorbidities, presenting symptoms, or acuity I expect that the services needed warrant INPATIENT care.: Yes I certify that my determination is in accordance with my understanding of Medicare's requirements for reasonable and necessary INPATIENT services [42 CFR 412.3e].: Yes Medical Necessity: Need Close Monitoring Due to Risk of Patient Decompensation
[2018-02-13] MEDS: HEPARIN SOD (PORCINE) 5,000 UNIT/ML 1 ML SYRINGE SUBCUT SCH ×2 (05:12→13:37)
[2018-02-13] MEDS: HYDROCORTISONE 10 MG TABLET PO SCH ×2 (05:12→13:37)
[2018-02-13 06:41] LABS: MEAN CORPUSCULAR HEMOGLOBIN 30.6 pg (27.0-33.4); MEAN CORPUSCULAR HGB CONC 34.6 g/dL (32.0-36.0); MEAN CORPUSCULAR VOLUME 88 fl (80-97); RED BLOOD COUNT 2.94 10^6/uL (3.72-5.28); RED CELL DISTRIBUTION WIDTH 13.5 % (11.5-14.0); WHITE BLOOD COUNT 6.7 10^3/uL (4.0-10.5)
[2018-02-13 06:48] LABS: ALBUMIN 2.4 g/dL (3.5-5.0); ANION GAP 5 (5-19); BLOOD UREA NITROGEN 9 mg/dL (7-20); CALCIUM 8.3 mg/dL (8.4-10.2); CARBON DIOXIDE 27 mmol/L (22-30); CHLORIDE 108 mmol/L (98-107); GLUCOSE 117 mg/dL (75-110); PHOSPHORUS 2.3 mg/dL (2.5-4.5); POTASSIUM 3.6 mmol/L (3.6-5.0); SODIUM 140.4 mmol/L (137-145)
[2018-02-13 07:23] LABS: PLATELET COUNT 84 10^3/uL (150-450)
[2018-02-13] MEDS: CLONAZEPAM 1 MG TABLET PO SCH (09:32)
[2018-02-13] MEDS: DOCUSATE SODIUM 100 MG CAPSULE PO SCH (09:33)
[2018-02-13] MEDS: FLUDROCORTISONE ACETATE 0.1 MG TABLET PO SCH (09:33)
[2018-02-13] MEDS ORDERED: INSULIN GLARGINE,HUM.REC.ANLOG 300 UNIT/3 ML INSULN.PEN SUBCUT SCH (10:00)
[2018-02-13] MEDS: INSULIN LISPRO 100 UNIT/ML 3 ML VIAL SUBCUT PRN (13:37)
--- NOTE | 2018-02-13 14:43 | PDOC DISCHARGE SUMMARY ---
General - Admit/Disc Date/PCP Admission Date/Primary Care Provider: 02/09/18 21:37 GURINDER MENG MD Discharge Date: 02/13/18 - Discharge Diagnosis (1) Addisonian crisis Is this a current diagnosis for this admission?: Yes Summary: Improved. initially required IV steroids however now back on home dose of Cortef 25mg q8 hours and Florinef 0.1 mg PO BID - Patient thought was on Midodrine however checked by pharmacy and has not been taking - Blood pressure has been stable - Remains intermittently lightheaded however walked today with PT and was cleared for discharge to home without home health requirement (2) Lightheadedness Is this a current diagnosis for this admission?: Yes Summary: Per above. Blood pressure improved. Likely chronic issues. Encouraged to move slowly after positional changes. Adequate hydration. (3) Diabetes mellitus type I Is this a current diagnosis for this admission?: Yes Summary: Discharge on home dose Lantus - Should monitor blood sugars at home and titrate insulin with PCP (4) Nausea and vomiting Is this a current diagnosis for this admission?: Yes Summary: Resolved. - Additional Information Resuscitation Status: Full Code Discharge Diet: As Tolerated, Regular Discharge Activity: Activity As Tolerated Home Medications: Brinzolamide/Brimonidine Tart [Simbrinza 1%-0.2% Eye Drops] 1 drop OU BID Cholecalciferol (Vitamin D3) [Vitamin D3 2000 unit Tablet] 2,000 unit PO DAILY 02/10/18 Cyclobenzaprine HCl [Amrix 15 mg Capsule Sustained Release] 15 mg PO QHS Ergocalciferol (Vitamin D2) [Drisdol 50,000 unit (1.25MG) Capsule] 50,000 unit PO MO@1000 02/10/18 Fludrocortisone Acetate [Florinef 0.1 mg Tablet] 0.1 mg PO BID 02/10/18 Insulin Aspart [Novolog Insulin (Aspart) 100 unit/mL] 0 units SQ .PUMP 02/10/18 Latanoprost [Xalatan 0.005% Oph Soln 2.5 ml] 1 drop OU QHS 02/10/18 Levothyroxine Sodium [Synthroid] 137 mcg PO Q6AM 02/10/18 History of Present Illness History of Present Illness: TAMAR PAULSON is a 57 year old female with a past medical history of Arthur 's disease, panhypopituitary state and insulin-dependent diabetes. Patient presents with 12 hours of excessive fatigue developing abdominal pain nausea and vomiting. Patient denies missing medications, fever, pain or new illness but admits to excessive social stressor learning of terminal illness of her mother. In the emergency room she is found to be hypertensive, tachycardic with hyperkalemia and hyperglycemia she is referred to the hospitalist for admission after receiving symptomatic management, IV fluids and Solu-Cortef. Physical Exam Vital Signs: Temp Pulse Resp BP Pulse Ox 98.1 F 82 16 120/64 100 02/13/18 11:42 02/13/18 14:00 02/13/18 11:42 02/13/18 11:42 02/13/18 11:42 Intake & Output 02/12/18 02/13/18 02/14/18 06:59 06:59 06:59 Intake Total 645 2565 458 Balance 645 2565 458 Weight 43.5 kg 49.1 kg General appearance: PRESENT: no acute distress, cooperative, thin Head exam: PRESENT: normocephalic Mouth exam: PRESENT: moist Respiratory exam: PRESENT: unlabored. ABSENT: tachypnea, wheezes Cardiovascular exam: PRESENT: +S1, +S2. ABSENT: tachycardia GI/Abdominal exam: PRESENT: soft. ABSENT: tenderness Extremities exam: ABSENT: +1 edema Musculoskeletal exam: PRESENT: ambulatory Neurological exam: PRESENT: alert, awake, CN II-XII grossly intact Psychiatric exam: PRESENT: appropriate affect, other - Tearful, as her dog last night Skin exam: PRESENT: dry, warm Results Laboratory Results: 02/13/18 05:12 02/13/18 05:12 02/13/18 02/13/18 05:12 05:12 WBC 6.7 RBC 2.94 L Hgb 9.0 L Hct 26.0 L MCV 88 MCH 30.6 MCHC 34.6 RDW 13.5 Plt Count 84 L Sodium 140.4 Potassium 3.6 Chloride 108 H Carbon Dioxide 27 Anion Gap 5 BUN 9 Creatinine 0.46 L Est GFR ( Amer) > 60 Est GFR (Non-Af Amer) > 60 Glucose 117 H Calcium 8.3 L Phosphorus 2.3 L Albumin 2.4 L 02/10/18 02/10/18 02/10/18 01:21 01:21 07:59 Creatine Kinase 33 32 CK-MB (CK-2) < 0.22 Troponin I < 0.012 02/10/18 02/10/18 02/10/18 07:59 13:39 13:39 Creatine Kinase 30 CK-MB (CK-2) < 0.22 < 0.22 Troponin I < 0.012 < 0.012 Qualifiers - * PATIENT BEING DISCHARGED WITH ANY OF THE FOLLOWING DIAGNOSIS: No
[2018-02-13 16:09] VITALS: BP 113/68
== END 2018-02-13 16:00 | disposition home or self-care (01) | DRG 644 ==
LOC: ER 17:31 → EH 21:37 → 3W 02-10 00:25
PROVIDERS: ADMIT Internal Medicine; ATTEND Internal Medicine
DX: E27.1 Primary adrenocortical insufficiency (principal); E23.0 Hypopituitarism; I25.10 Atherosclerotic heart disease of native coronary artery without angina pectoris; E78.00 Pure hypercholesterolemia, unspecified; E03.9 Hypothyroidism, unspecified; K21.9 Gastro-esophageal reflux disease without esophagitis; I10 Essential (primary) hypertension; E87.5 Hyperkalemia; E11.9 Type 2 diabetes mellitus without complications; R53.1 Weakness
CPT/HCPCS: 36415; 80048; 80053; 80069; 81001; 82378; 82550; 82553; 82962; 83036; 83735; 84100; 84439; 84443; 84481; 84484; 85025; 85027; 85652; 86140; 93005; 93010; 96361; 96374; 99285; G8978-GP; G8979-GP; G8980-GP; J1720; J1815; J2060; J2405; J3490; J7030; S0119

== ENCOUNTER 2019-06-24 08:27 | Day surgery (SDC) | payer MEDICARE, BC ==
--- NOTE | 2019-06-11 10:25 | RADIOLOGY REPORT (SQ) ---
EXAM DESCRIPTION: CHEST PA/LATERAL COMPLETED DATE/TIME: 06/11/2019 9:39 am REASON FOR STUDY: PRE-OP COMPARISON: 12/04/2016 EXAM PARAMETERS: NUMBER OF VIEWS: two views TECHNIQUE: Digital Frontal and Lateral radiographic views of the chest acquired. RADIATION DOSE: NA LIMITATIONS: none FINDINGS: LUNGS AND PLEURA: No opacities, masses or pneumothorax. No pleural effusion. MEDIASTINUM AND HILAR STRUCTURES: No masses or contour abnormalities. HEART AND VASCULAR STRUCTURES: Heart normal size. No evidence for failure. BONES: No acute findings. HARDWARE: None in the chest. OTHER: No other significant finding. IMPRESSION: NO SIGNIFICANT RADIOGRAPHIC FINDING IN THE CHEST. TECHNICAL DOCUMENTATION: JOB ID: [id number] All Rights Reserved Reading location - IP/workstation name: [email or web address]
[2019-06-11 11:03] LABS: ABSOLUTE EOSINOPHILS # (AUTO) 0.3 10^3/uL (0.0-0.6); ABSOLUTE LYMPHOCYTES (AUTO) 2.7 10^3/uL (0.5-4.7); ABSOLUTE MONOCYTES (AUTO) 0.7 10^3/uL (0.1-1.4); BASOPHILS % (AUTO) 0.6 % (0-2); EOSINOPHILS % (AUTO) 4.7 % (0-6); HEMATOCRIT 36.3 % (36.0-47.0); HEMOGLOBIN 12.4 g/dL (12.0-15.5); LYMPHOCYTES % (AUTO) 47.4 % (13-45); MEAN CORPUSCULAR HEMOGLOBIN 31.1 pg (27.0-33.4); MEAN CORPUSCULAR HGB CONC 34.1 g/dL (32.0-36.0); MEAN CORPUSCULAR VOLUME 91 fl (80-97); MONOCYTES % (AUTO) 11.6 % (3-13); PLATELET COUNT 153 10^3/uL (150-450); RED BLOOD COUNT 3.97 10^6/uL (3.72-5.28); RED CELL DISTRIBUTION WIDTH 12.9 % (11.5-14.0); SEGMENTED NEUTROPHILS % (AUTO) 35.7 % (42-78); TOTAL CELLS COUNTED % (AUTO) 100 %; WHITE BLOOD COUNT 5.6 10^3/uL (4.0-10.5)
[2019-06-11 11:21] LABS: ANION GAP 10 (5-19); BLOOD UREA NITROGEN 16 mg/dL (7-20); CALCIUM 9.8 mg/dL (8.4-10.2); CARBON DIOXIDE 28 mmol/L (22-30); CHLORIDE 98 mmol/L (98-107); GLUCOSE 247 mg/dL (75-110); POTASSIUM 4.4 mmol/L (3.6-5.0)
--- NOTE | 2019-06-11 13:10 | EKG REPORT ---
SEVERITY:- BORDERLINE ECG - SINUS RHYTHM BORDERLINE T WAVE ABNORMALITIES : Confirmed by: Alan Sampson MD 11-Jun-2019 13:09:33
[~2019-06-24 08:27] MED LIST: BUPIVACAINE HCL 0.5 % INJ/PF 30 ML SDV ONE; CEFAZOLIN SODIUM 2 GM in DEXTROSE 5%-WATER 100 ML IV PRN; DEXAMETHASONE SOD PHOSPHATE INJ 4 MG/1 ML VIAL ONE; FENTANYL CITRATE INJ/PF 100 MCG/2 ML AMPUL ONE; LACTATED RINGERS 1000 ML IV PRN; LIDOCAINE 0.5% INJ-PF (5 MG/ML) 50 ML SDV SUBCUT PRN; LIDOCAINE 1% INJ-PF (10 MG/ML) 30 ML SDV ONE; MIDAZOLAM 2 MG/2 ML INJ ONE; ONDANSETRON HCL INJ/PF 4 MG/2 ML SDV ONE; PROPOFOL INJ 200 MG/20 ML VIAL IV ONE
[2019-06-24] MEDS ORDERED: MIDAZOLAM 2 MG/2 ML INJ ONE (09:59)
[2019-06-24] MEDS ORDERED: DEXAMETHASONE SOD PHOSPHATE INJ 4 MG/1 ML VIAL ONE (09:59)
[2019-06-24] MEDS ORDERED: METOCLOPRAMIDE HCL INJ/PF 10 MG/2 ML SDV ONE (10:00)
[2019-06-24] MEDS ORDERED: FAMOTIDINE INJ/PF 20 MG/2 ML SDV IV ONE (10:00)
[2019-06-24] MEDS ORDERED: MORPHINE SULFATE 10 MG/ML INJ ONE (11:10)
[2019-06-24 13:19] LABS: ANION GAP 7 (5-19); BLOOD UREA NITROGEN 15 mg/dL (7-20); CALCIUM 9.2 mg/dL (8.4-10.2); CARBON DIOXIDE 26 mmol/L (22-30); CHLORIDE 106 mmol/L (98-107); GLUCOSE 186 mg/dL (75-110); POTASSIUM 3.1 mmol/L (3.6-5.0)
[2019-06-24 17:07] VITALS: BP 109/67
[2019-06-24] MEDS ORDERED: DEXTROSE 50%-WATER 25 GM/50 ML DISP.SYRIN IV ONE (18:00)
== END 2019-06-24 14:05 | disposition home or self-care (01) ==
LOC: OROUT 08:27
PROVIDERS: ATTEND Orthopaedic Surgery
DX: G56.01 Carpal tunnel syndrome, right upper limb (principal); G56.21 Lesion of ulnar nerve, right upper limb; I95.9 Hypotension, unspecified; E11.9 Type 2 diabetes mellitus without complications; Z79.4 Long term (current) use of insulin; E03.9 Hypothyroidism, unspecified; E27.1 Primary adrenocortical insufficiency; Z01.812 Encounter for preprocedural laboratory examination; Z53.8 Procedure and treatment not carried out for other reasons; Z79.899 Other long term (current) drug therapy; Z96.41 Presence of insulin pump (external) (internal)
CPT/HCPCS: 93005; 36415 ×2; 82962; 85025; 80048 ×2; 71046; 93010; J2250; J1100; J2765; J2270; S0028; J0690; J2405; J2704; J3010; J3490; J7060

== ENCOUNTER 2019-07-22 05:51 | Day surgery (SDC) | payer MEDICARE, BC ==
[~2019-07-22 05:51] MED LIST changes: -BUPIVACAINE HCL 0.5 % INJ/PF 30 ML SDV ONE; -DEXAMETHASONE SOD PHOSPHATE INJ 4 MG/1 ML VIAL ONE; -FENTANYL CITRATE INJ/PF 100 MCG/2 ML AMPUL ONE; -LACTATED RINGERS 1000 ML IV PRN; -LIDOCAINE 0.5% INJ-PF (5 MG/ML) 50 ML SDV SUBCUT PRN; -LIDOCAINE 1% INJ-PF (10 MG/ML) 30 ML SDV ONE; -MIDAZOLAM 2 MG/2 ML INJ ONE; -ONDANSETRON HCL INJ/PF 4 MG/2 ML SDV ONE; -PROPOFOL INJ 200 MG/20 ML VIAL IV ONE
[2019-07-22] MEDS ORDERED: MIDAZOLAM 2 MG/2 ML INJ ONE (06:22)
[2019-07-22] MEDS ORDERED: FENTANYL CITRATE INJ/PF 100 MCG/2 ML AMPUL ONE (06:22)
[2019-07-22] MEDS ORDERED: PROPOFOL INJ 200 MG/20 ML VIAL IV ONE (06:22)
[2019-07-22] MEDS ORDERED: ONDANSETRON HCL INJ/PF 4 MG/2 ML SDV ONE ×2 (06:22→09:07)
[2019-07-22] MEDS ORDERED: DEXAMETHASONE SOD PHOSPHATE INJ 4 MG/1 ML VIAL ONE (06:22)
[2019-07-22] MEDS ORDERED: LIDOCAINE 0.5% INJ-PF (5 MG/ML) 50 ML SDV ONE (06:23)
[2019-07-22 07:31] LABS: ABSOLUTE EOSINOPHILS # (AUTO) 0.1 10^3/uL (0.0-0.6); ABSOLUTE LYMPHOCYTES (AUTO) 2.8 10^3/uL (0.5-4.7); ABSOLUTE MONOCYTES (AUTO) 0.8 10^3/uL (0.1-1.4); ABSOLUTE NEUT (AUTO) 4.3 10^3/uL (1.7-8.2); BASOPHILS % (AUTO) 0.5 % (0-2); EOSINOPHILS % (AUTO) 1.6 % (0-6); HEMATOCRIT 31.8 % (36.0-47.0); HEMOGLOBIN 11.1 g/dL (12.0-15.5); LYMPHOCYTES % (AUTO) 34.7 % (13-45); MEAN CORPUSCULAR HGB CONC 34.8 g/dL (32.0-36.0); MEAN CORPUSCULAR VOLUME 89 fl (80-97); MONOCYTES % (AUTO) 9.5 % (3-13); PLATELET COUNT 145 10^3/uL (150-450); RED BLOOD COUNT 3.57 10^6/uL (3.72-5.28); SEGMENTED NEUTROPHILS % (AUTO) 53.7 % (42-78); TOTAL CELLS COUNTED % (AUTO) 100 %; WHITE BLOOD COUNT 8.1 10^3/uL (4.0-10.5)
[2019-07-22] MEDS ORDERED: HYDROCORTISONE SOD SUCCINATE INJ/PF 100 MG/2 ML SDV ONE (07:43)
[2019-07-22 07:52] LABS: ANION GAP 9 (5-19); BLOOD UREA NITROGEN 14 mg/dL (7-20); CALCIUM 8.8 mg/dL (8.4-10.2); CARBON DIOXIDE 24 mmol/L (22-30); CHLORIDE 104 mmol/L (98-107); GLUCOSE 236 mg/dL (75-110)
[2019-07-22] MEDS ORDERED: LIDOCAINE 1% INJ-PF (10 MG/ML) 30 ML SDV ONE (07:53)
[2019-07-22] MEDS ORDERED: BUPIVACAINE HCL 0.5 % INJ/PF 30 ML SDV ONE (07:53)
[2019-07-22] MEDS ORDERED: FENTANYL CITRATE INJ/PF 100 MCG/2 ML AMPUL IV PRN ×3 (08:35)
[2019-07-22] MEDS ORDERED: ONDANSETRON HCL INJ/PF 4 MG/2 ML SDV IV PRN (08:35)
[2019-07-22] MEDS ORDERED: MORPHINE SULFATE 10 MG/ML INJ IV PRN ×2 (08:35→09:07)
[2019-07-22] MEDS ORDERED: DIPHENHYDRAMINE HCL 50 MG/ML VIAL IV PRN (08:35)
[2019-07-22] MEDS ORDERED: PROMETHAZINE HCL INJ 25 MG/1 ML VIAL IV PRN ×2 (08:35)
[2019-07-22] MEDS ORDERED: MEPERIDINE HCL/PF INJ 25 MG/1 ML DISP.SYRIN IV PRN (08:35)
[2019-07-22] MEDS ORDERED: HYDROCODONE/ACETAMINOPHEN 5-325 MG TABLET PO PRN (09:07)
--- NOTE | 2019-07-22 09:08 | Discharge Summary ---
Discharge Summary (SDC) - Discharge Final Diagnosis: Right carpal/cubital tunnel syndrome Date of Surgery: 07/22/19 Discharge Date: 07/22/19 Condition: Good Treatment or Instructions: Schedule Follow Up w/ Dr. David Valderrama @ [facility] for Surgery to be seen in 10-14 days or as scheduled [place]: [place]: [place]: May remove dressing on postop day #3, keep incision covered and dry. Ice and elevate May begin finger range of motion attempting to make full fist. Stool softener of choice when on pain medication. USE OF [id number]-OHV-RNGSDLG IBUPROFEN: Ibuprofen (Advil, Nuprin, Medipren, Motrin IB) is a medication for fever and pain control. In addition, it has anti- inflammatory effects which may be beneficial, especially in the treatment of injuries. It's best to take ibuprofen with food. Persons with ulcer disease or allergy to aspirin should notify their physician of this before taking ibuprofen. Ibuprofen can be given every four to six hours, for a total of four doses daily. Age Pain or fever dose Antiinflammatory dose 6-8 yr 200 mg (1 tab) 200 mg (1 tab) 9-11 yr 200 mg (1 tab) 200-400 mg (1-2 tab) 11-14 yr 200-400 mg (1-2 tab) 400 mg (2 tab) 15-adult 400 mg (2 tab) 600 mg (3 tab) ORAL NARCOTIC MEDICATION: You have been given a prescription for pain control. This medication is a narcotic. It's best taken with food, as nausea can result if taken on an empty stomach. Don't operate machinery or drive within six hours of taking this medication. Do not combine this medicine with alcohol, or with any medication which can cause sedation (such as cold tablets or sleeping pills) unless you get permission from the physician. Narcotics tend to cause constipation. If possible, drink plenty of fluids and eat a diet high in fiber and fruits. Please be aware that prescription narcotics also have the potential for abuse. People become addicted to these medications because of the general sense of wellbeing that they induce. This feeling along with a significant reduction in tension, anxiety, and aggression provides a stimulating seductive quality to these drugs. Once your pain is under control, we encourage you to discard your unused narcotics. Prescriptions: Hydrocodone/Acetaminophen [T[place]oute 5-325 mg Tablet] 1 tab PO Q6 PRN #20 tablet PRN Reason: Referrals: GURINDER MENG MD [Primary Care Provider] - Discharge Diet: As Tolerated Respiratory Treatments at Home: Deep Breathing/Coughing, Incentive Spirometer Discharge Activity: No Lifting Over 10 Pounds, No Lifting/Push/Pulling Report the Following to Your Physician Immediately: Fever over 101 Degrees, Unusual Bleeding, Redness, Swelling, Warmth, Increased Soreness
--- NOTE | 2019-07-22 09:10 | Operative Report ---
Operative Report DATE OF SURGERY: 07/22/19 PREOPERATIVE DIAGNOSIS: Right carpal/cubital tunnel syndrome POSTOPERATIVE DIAGNOSIS: Same OPERATION: 1. Right endoscopic carpal tunnel release. 2. Right in situ cubital tunnel release SURGEON: JACOB WINTERS COMPLICATIONS: Indication for above procedure: 59-year-old female with history of diabetes and electrodiagnostic testing confirming carpal and cubital tunnel syndrome. We attempted to remeasure without resolution of patient's symptoms at that point decision was made to proceed with operative intervention. Attempt was made to proceed with operative treatment a couple weeks ago but due to patient's erratic glucose surgery was canceled. Today's glucose although high no longer hypoglycemic and thus decision was made to proceed with operative intervention. Risks and benefits were explained patient verbalized understanding consented for surgical procedure. Procedure In Detail: Patient was seen and evaluated in the preoperative holding area. The RIGHT uppe r extremity was initialized and marked. Patient received Ancef IV for bacterial prophylaxis. Patient was taken back to the operative room where transferred operative table. Patient was then placed under MAC anesthesia. Once adequately anesthetized, a nonsterile tourniquet was placed on the upper extremity. A surgical team debriefing was performed ensuring all instrumentation was available, the surgical procedure was discussed with possible concerns reviewed. Skin was prepped with alcohol and 10cc of 1% lidocaine without epinephrine was injected locally and w/in carpal canal. The upper extremity was prepped with chlorhexidine and alcohol and draped in a sterile fashion. A timeout was done identifying correct patient, procedure and extremity everyone in attendance agree with this and verbalized no concerns.The extremity was then exsanguinated the tourniquet was inflated to 250 mmHg. A transverse skin incision was made just proximal to the wrist flexion crease ulnar to the palmaris longus. Blunt dissection was performed down to the palmaris longus tendon which was retracted radially. Deep to the palmaris longus tendon was the volar carpal ligament this was incised identifying the median nerve deep. With the use of a [place] elevator any soft tissue/synovium was freed from the undersurface of the transverse carpal ligament. The hook of hamate was identified ulnarly. The ConMed cannulas were then introduced beginning with #1 progressing to a #3 gently dilating the carpal canal. I then introduced the scope within the cannula and identified transverse carpal ligament ensuring the median nerve was not visualized within the cannula. I triangulated distally with a 25-gauge needle identifying the distal aspect of the transverse carpal ligament, to ensure protection of the superficial palmar arch. The arthroscopic knife was used to incise the transverse carpal ligament under direct visualization with the arthroscopic camera. Any excess transverse fibers that remained after the first past were carefully released with a repeat pass. The median nerve was then directly visualized radially without disruption. Once this was completed I placed the #3 dilator and assured I got complete release of the transverse carpal ligament without residual compression. The median nerve was directly visualized and free of any overlying compression. I then turned my attention to release of the volar antebrachial fascia proximally. Once again a [place] was used to open the wound and I proceeded with cannula #1 to #3. The arthroscope was introduced into the cannula and under direct visualization the volar antebrachial fascia was released. Once this was complete I copiusly irrigated the wound with normal saline. A longitudinal skin incision was made centered over the cubital tunnel. Careful dissection was done through the overlying soft tissues any peripheral vasculature was carefully coagulated with bipolar cautery. The branches of the medial antebrachial cutaneous nerve were identified and protected throughout the entirety of the case. Once within the confines of the cubital tunnel the ulnar nerve was identified at the proximal aspect of the wound. At this level a medial portion of the triceps and the medial intermuscular septum was released freeing the ulnar nerve proximally of any overlying soft tissue compression. The ulnar nerve was then tracked distally releasing Carrizales's fascia. At the level of the FCU aponeurosis between the 2 heads of the FCU muscle. The fascia was released once again relieving any external compression from the ulnar nerve distally past the level of the first motor branch. Neuro lysis was performed posteriorly ensuring there is no remaining soft tissue bands causing compression. During dissection of the nerve careful attention was directed at avoiding disruption of the ulnar nerve blood supply. Elbow range of motion was then done from full flexion to full extension with full flexion there was no evidence of anterior subluxation of the ulnar nerve from the groove. And thus it was determined patient would not require anterior ulnar nerve transposition Subcutaneous tissues were closed interrupted 4-0 Monocryl suture. The skin incision was closed with 4-0 Monocryl subcutaneous and a running subcuticular 4-0 Monocryl. This was reinforced with Dermabond and Steri-Strips. Sterile, 4 x 4's and a Wiliam bandage was placed loosely. Sponge counts, instrument counts and needle counts were correct. The was no intraoperative complications patient tolerated the procedure well and was stable to PACU. Postop plan: Patient follow in the office in 2 weeks for wound check. We will begin range of motion immediately but no heavy lifting. PROCEDURE: Indication for above procedure: 59-year-old female with history of diabetes and electrodiagnostic testing confirming carpal and cubital tunnel syndrome. We attempted to remeasure without resolution of patient's symptoms at that point decision was made to proceed with operative intervention. Attempt was made to proceed with operative treatment a couple weeks ago but due to patient's erratic glucose surgery was canceled. Today's glucose although high no longer hypoglycemic and thus decision was made to proceed with operative intervention. Risks and benefits were explained patient verbalized understanding consented for surgical procedure. Procedure In Detail: Patient was seen and evaluated in the preoperative holding area. The RIGHT upper extremity was initialized and marked. Patient received Ancef IV for bacterial prophylaxis. Patient was taken back to the operative room where transferred operative table. Patient was then placed under anesthesia. Once adequately anesthetized, a nonsterile tourniquet was placed on the upper extremity. A surgical team debriefing was performed ensuring all instrumentation was available, the surgical procedure was discussed with possible concerns reviewed.The upper extremity was prepped with chlorhexidine and alcohol and draped in a sterile fashion. A timeout was done identifying correct patient, procedure and extremity everyone in attendance agree with this and verbalized no concerns.The extremity was then exsanguinated the tourniquet was inflated to 250 mmHg. A transverse skin incision was made just proximal to the wrist flexion crease ulnar to the palmaris longus. Blunt dissection was performed down to the palmaris longus tendon which was retracted radially. Deep to the palmaris longus tendon was the volar carpal ligament this was incised identifying the median nerve deep. With the use of a [place] elevator any soft tissue/synovium was freed from the undersurface of the transverse carpal ligament. The hook of hamate was identified ulnarly. The ConMed cannulas were then introduced beginning with #1 progressing to a #3 gently dilating the carpal canal. I then introduced the scope within the cannula and identified transverse carpal lig ament ensuring the median nerve was not visualized within the cannula. I triangulated distally with a 25-gauge needle identifying the distal aspect of the transverse carpal ligament, to ensure protection of the superficial palmar arch. The arthroscopic knife was used to incise the transverse carpal ligament under direct visualization with the arthroscopic camera. Any excess transverse fibers that remained after the first past were carefully released with a repeat pass. The median nerve was then directly visualized radially without disruption. Once this was completed I placed the #3 dilator and assured I got complete release of the transverse carpal ligament without residual compression. The median nerve was directly visualized and free of any overlying compression. I then turned my attention to release of the volar antebrachial fascia proximally. Once again a [place] was used to open the wound and I proceeded with cannula #1 to #3. The arthroscope was introduced into the cannula and under direct visualization the volar antebrachial fascia was released. Once this was complete I copiusly irrigated the wound with normal saline. A longitudinal skin incision was made centered over the cubital tunnel. Careful dissection was done through the overlying soft tissues any peripheral vasculature was carefully coagulated with bipolar cautery. The branches of the medial antebrachial cutaneous nerve were identified and protected throughout the entirety of the case. Once within the confines of the cubital tunnel the ulnar nerve was identified at the proximal aspect of the wound. At this level a medial portion of the triceps and the medial intermuscular septum was released freeing the ulnar nerve proximally of any overlying soft tissue compression. The ulnar nerve was then tracked distally releasing Carrizales's fascia. At the level of the FCU aponeurosis between the 2 heads of the FCU muscle. The fascia was released once again relieving any external compression from the ulnar nerve distally past the level of the first motor branch. Neuro lysis was performed posteriorly ensuring there is no remaining soft tissue bands causing compression. During dissection of the nerve careful attention was directed at avoiding disruption of the ulnar nerve blood supply. Elbow range of motion was then done from full flexion to full extension with full flexion there was no evidence of anterior subluxation of the ulnar nerve from the groove. And thus it was determined patient would not require anterior ulnar nerve transposition Subcutaneous tissues were closed interrupted 4-0 Monocryl suture. The skin incision was closed with 4-0 Monocryl subcutaneous and a running subcuticular 4-0 Monocryl. This was reinforced with Dermabond and Steri-Strips. 20 cc of 0.5% bupivacaine without epinephrine was injected for postoperative pain control. Sterile, 4 x 4's and a [place] bandage was placed loosely. Sponge counts, instrument counts and needle counts were correct. The was no intraoperative complications patient tolerated the procedure well and was stable to PACU. Postop plan: Patient follow in the office in 2 weeks for wound check. We will begin range of motion immediately but no heavy lifting.
[2019-07-22 13:27] VITALS: BP 113/56
[2019-07-22] MEDS ORDERED: PHENYLEPHRINE HCL INJ/PF 10 MG/1 ML SDV ONE (15:06)
== END 2019-07-22 11:05 | disposition home or self-care (01) ==
LOC: OROUT 05:51
PROVIDERS: ATTEND Orthopaedic Surgery
DX: G56.01 Carpal tunnel syndrome, right upper limb (principal); G56.21 Lesion of ulnar nerve, right upper limb; Z79.899 Other long term (current) drug therapy; E11.9 Type 2 diabetes mellitus without complications; E03.9 Hypothyroidism, unspecified; Z79.4 Long term (current) use of insulin; E27.1 Primary adrenocortical insufficiency; Z46.81 Encounter for fitting and adjustment of insulin pump
CPT/HCPCS: 36415; 82962; 84132; 85025; 80048; 01810; 29848; 64718; J2250; J3490 ×2; J0690; J1100; J3010; J1720; J2370; J2405; J7060; J2704; 1810

== ENCOUNTER 2019-11-15 07:04 | Emergency (ER) | payer MEDICARE, BC ==
[2019-11-15 08:13] LABS: ABSOLUTE EOSINOPHILS # (AUTO) 0.1 10^3/uL (0.0-0.6); ABSOLUTE LYMPHOCYTES (AUTO) 2.3 10^3/uL (0.5-4.7); ABSOLUTE MONOCYTES (AUTO) 0.5 10^3/uL (0.1-1.4); ABSOLUTE NEUT (AUTO) 4.7 10^3/uL (1.7-8.2); BASOPHILS % (AUTO) 0.4 % (0-2); EOSINOPHILS % (AUTO) 1.9 % (0-6); HEMATOCRIT 37.3 % (36.0-47.0); HEMOGLOBIN 12.6 g/dL (12.0-15.5); LYMPHOCYTES % (AUTO) 30.4 % (13-45); MEAN CORPUSCULAR HEMOGLOBIN 30.5 pg (27.0-33.4); MEAN CORPUSCULAR HGB CONC 33.6 g/dL (32.0-36.0); MEAN CORPUSCULAR VOLUME 91 fl (80-97); MONOCYTES % (AUTO) 6.1 % (3-13); PLATELET COUNT 171 10^3/uL (150-450); RED BLOOD COUNT 4.11 10^6/uL (3.72-5.28); RED CELL DISTRIBUTION WIDTH 15.3 % (11.5-14.0); SEGMENTED NEUTROPHILS % (AUTO) 61.2 % (42-78); TOTAL CELLS COUNTED % (AUTO) 100 %; WHITE BLOOD COUNT 7.6 10^3/uL (4.0-10.5)
[2019-11-15 08:17] LABS: ALBUMIN 3.8 g/dL (3.5-5.0); ALKALINE PHOSPHATASE 64 U/L (38-126); ANION GAP 10 (5-19); ASPARTATE AMINO TRANSFERASE 40 U/L (14-36); BILIRUBIN,DIRECT 0.3 mg/dL (0.0-0.4); BILIRUBIN,TOTAL 0.5 mg/dL (0.2-1.3); BLOOD UREA NITROGEN 21 mg/dL (7-20); CALCIUM 9.1 mg/dL (8.4-10.2); CARBON DIOXIDE 23 mmol/L (22-30); CHLORIDE 98 mmol/L (98-107); POTASSIUM 5.3 mmol/L (3.6-5.0); TOTAL PROTEIN 6.4 g/dL (6.3-8.2)
[2019-11-15] MEDS ORDERED: MORPHINE SULFATE 10 MG/ML INJ IV ONE (08:22)
[2019-11-15] MEDS ORDERED: NORMAL SALINE 1000 ML 1,000 ML IV ONE ×2 (08:23→08:39)
[2019-11-15] MEDS ORDERED: ONDANSETRON HCL INJ/PF 4 MG/2 ML SDV IV ONE (08:23)
[2019-11-15 08:31] LABS: GLUCOSE 606 mg/dL (75-110)
--- NOTE | 2019-11-15 09:37 | RADIOLOGY REPORT (SQ) ---
EXAM DESCRIPTION: CHEST SINGLE VIEW COMPLETED DATE/TIME: 11/15/2019 9:26 am REASON FOR STUDY: trauma fall COMPARISON: 06/11/2019. NUMBER OF VIEWS: One view. TECHNIQUE: Single frontal radiographic view of the chest acquired. LIMITATIONS: None. FINDINGS: LUNGS AND PLEURA: No opacities, masses or pneumothorax. No pleural effusion. MEDIASTINUM AND HILAR STRUCTURES: No masses. Contour normal. HEART AND VASCULAR STRUCTURES: Heart normal in size. Normal vasculature. BONES: No acute findings. HARDWARE: None in the chest. OTHER: No other significant finding. IMPRESSION: NO SIGNIFICANT RADIOGRAPHIC FINDING IN THE CHEST. TECHNICAL DOCUMENTATION: JOB ID: [id number] [employer]- All Rights Reserved Reading location - IP/workstation name: [email or web address]
--- NOTE | 2019-11-15 09:38 | RADIOLOGY REPORT (SQ) ---
EXAM DESCRIPTION: HIP LEFT AP/LATERAL COMPLETED DATE/TIME: 11/15/2019 9:26 am REASON FOR STUDY: left hip pain COMPARISON: None. NUMBER OF VIEWS: Two views, AP pelvis and cross-table lateral left hip LIMITATIONS: None. FINDINGS: Comminuted intertrochanteric fracture with slight separation of fragments. No significant angulation. Remainder of the pelvis is intact. OTHER: No other significant finding. IMPRESSION: Left hip fracture. TECHNICAL DOCUMENTATION: JOB ID: [id number] Reading location - IP/workstation name: [email or web address]
[2019-11-15 09:51] LABS: APPEARANCE,URINE CLEAR; BILIRUBIN,URINE NEGATIVE (NEGATIVE); COLOR,URINE STRAW; GLUCOSE, URINE >=500 mg/dL (NEGATIVE); INTERNATIONAL RATION (INR) 1.01; KETONES,URINE NEGATIVE (NEGATIVE); LEUKOCYTE ESTERASE,URINE TRACE (NEGATIVE); NITRITE,URINE NEGATIVE (NEGATIVE); PROTEIN,URINE NEGATIVE (NEGATIVE); PROTHROMBIN TIME 13.3 SEC (11.4-15.4); URINE SPECIFIC GRAVITY 1.022; UROBILINOGEN,URINE NEGATIVE mg/dL (<2.0)
[2019-11-15 09:52] LABS: PARTIAL THROMBOPLASTIN TIME 32.5 SEC (23.5-35.8)
[2019-11-15 10:08] LABS: URINE AMPHETAMINES SCREEN NEGATIVE; URINE BARBITURATES SCREEN NEGATIVE; URINE BENZODIAZEPINES SCREEN NEGATIVE; URINE COCAINE SCREEN NEGATIVE; URINE MARIJUANA (THC) SCREEN NEGATIVE; URINE METHADONE SCREEN NEGATIVE; URINE PHENCYCLIDINE SCREEN NEGATIVE
[2019-11-15] MEDS ORDERED: HYDROMORPHONE HCL INJ/PF 2 MG/ML AMPULE IV ONE ×2 (10:24→14:19)
[2019-11-15] MEDS ORDERED: HYDROCORTISONE SOD SUCCINATE INJ/PF 100 MG/2 ML SDV IV ONE (10:40)
[2019-11-15] MEDS ORDERED: HYDROMORPHONE HCL 2 MG TABLET PO ONE (14:14)
[2019-11-15] MEDS ORDERED: DIPHENHYDRAMINE HCL 50 MG/ML VIAL IV ONE (14:14)
[2019-11-15 15:23] VITALS: BP 88/61
--- NOTE | 2019-11-17 00:42 | EKG REPORT ---
SEVERITY:- BORDERLINE ECG - SINUS RHYTHM BORDERLINE T ABNORMALITIES, DIFFUSE LEADS BORDERLINE PROLONGED QT INTERVAL : Confirmed by: Norberto Lizarraga 17-Nov-2019 00:41:26
--- NOTE | 2019-11-17 07:31 | ER Document Report ---
Entered by SAMY ADAM SCRIBE 11/15/19 0805 Acting as scribe for:FLORINA ELLISON MD ED General - General Chief Complaint: Hip Injury Stated Complaint: FALL/LEFT LEG PAIN Time Seen by Provider: 11/15/19 07:31 Primary Care Provider: GURINDER MENG MD [Primary Care Provider] - Follow up as needed Mode of Arrival: Ambulatory Information source: Patient Notes: This 59 year old female patient presents to the emergency department today with pain in her left hip. Patient states she was walking up stairs this morning into her house and fell backwards off the first step. Patient states she hit her head but did not lose consciousness. Patient states she skinned her elbow and could not get up after falling because of pain in her left hip. TRAVEL OUTSIDE OF THE [place] IN LAST 30 DAYS: No - Related Data Allergies/Adverse Reactions: azithromycin [From Zithromax] Allergy (Unknown, Verified 07/22/19 06:26) Past Medical History - General Information source: Patient - Social History Smoking Status: Never Smoker Cigarette use (# per day): No Family History: CAD, Hypertension, Malignancy Patient has suicidal ideation: No Patient has homicidal ideation: No - Past Medical History Cardiac Medical History: Reports: Hx Coronary Artery Disease - CAD - blockage x 2- no stents, Hx Hypercholesterolemia Pulmonary Medical History: Endocrine Medical History: Reports: Hx Diabetes Mellitus Type 1, Hx Diabetes Mellitus Type 2, Hx Hypothyroidism Renal/ Medical History: Reports: Hx Ovarian Cysts - left side Malignancy Medical History: GI Medical History: Reports: Hx Gastroesophageal Reflux Disease Musculoskeletal Medical History: Reports Hx Musculoskeletal Deformity, Reports Hx Musculoskeletal Trauma Psychiatric Medical History: Reports: Hx Depression Traumatic Medical History: Reports: Hx Fractures - left wrist and toes and right knee Infectious Medical History: Past Surgical History: Reports: Hx Cardiac Catheterization, Hx Section, Hx Gynecologic Surgery - Left oophorectomy, Hx Tubal Ligation - Immunizations Immunizations up to date: Yes Hx Diphtheria, Pertussis, Tetanus Vaccination: No Hx Pneumococcal Vaccination: 09/03/16 Review of Systems - Review of Systems Constitutional: No symptoms reported EENT: No symptoms reported Cardiovascular: No symptoms reported Respiratory: No symptoms reported Gastrointestinal: No symptoms reported Genitourinary: No symptoms reported Female Genitourinary: No symptoms reported Musculoskeletal: See HPI, Other - Pain in left hip. Skin: See HPI Hematologic/Lymphatic: No symptoms reported Neurological/Psychological: No symptoms reported -: Yes All other systems reviewed and negative Physical Exam - Vital signs Vitals: Temp Pulse Resp BP Pulse Ox 97.4 F 73 16 89/68 L 96 11/15/19 07:48 11/15/19 07:48 11/15/19 07:48 11/15/19 07:48 11/15/19 07:48 - General General appearance: Appears well, Alert In distress: Mild - HEENT Head: Normocephalic, Atraumatic Eyes: Normal Pupils: PERRL - Respiratory Respiratory status: No respiratory distress Chest status: Nontender Breath sounds: Normal - Cardiovascular Rhythm: Regular Heart sounds: Normal auscultation Murmur: No - Abdominal Inspection: Normal Distension: No distension Bowel sounds: Normal Tenderness: Nontender - Extremities Arm: Other - Left elbow minor abrasion. Full range of motion. Hip: Other - Tenderness with palpation to the left hip. Foot: Other - Right medial heel minor abrasion. Full range of motion. - Neurological Neuro grossly intact: Yes Cognition: Normal Orientation: AAOx4 Steve Coma Scale Motor: Obeys Commands - Psychological Associated symptoms: Normal affect, Normal mood - Skin Skin Temperature: Warm Skin Moisture: Dry Skin Color: Normal Course - Re-evaluation Re-evalutation: 11/15/19 14:56 Patient then had recurrence of pain due to medication wear off. Patient was given another IV Dilaudid 1 mg and IV Benadryl. Patient's appears to be resting comfortably now. 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 - Vital Signs Vital signs: Temp Pulse Resp BP Pulse Ox 97.4 F 73 11 L 101/63 100 11/15/19 07:48 11/15/19 07:48 11/15/19 13:01 11/15/19 13:01 11/15/19 13:01 - Laboratory Result Diagrams: 11/15/19 07:30 11/15/19 07:30 Laboratory results interpreted by me: 11/15/19 11/15/19 11/15/19 07:30 07:30 08:33 RDW 15.3 H Sodium 130.8 L Potassium 5.3 H BUN 21 H Glucose 606 H* POC Glucose 503 H* AST 40 H Urine Glucose (UA) Ur Leukocyte Esterase 11/15/19 11/15/19 11/15/19 09:00 09:48 11:13 RDW Sodium Potassium BUN Glucose POC Glucose 463 H* 237 H AST Urine Glucose (UA) >=500 H Ur Leukocyte Esterase TRACE H 11/15/19 11/15/19 12:24 14:14 RDW Sodium Potassium BUN Glucose POC Glucose 191 H 135 H AST Urine Glucose (UA) Ur Leukocyte Esterase Patient's blood sugar is now down to in the 130s. Patient's insulin pump has been discontinued. We will continue to monitor patient's blood sugar. - Diagnostic Test Radiology reviewed: Image reviewed, Reports reviewed Radiology results interpreted by me: 11/15/19 14:57 Chest x-ray no acute process right hip shows a closed intertrochanteric left femur fracture. - EKG Interpretation by Me Additional EKG results interpreted by me: 11/15/19 14:58 Twelve-lead EKG 11/15/2019 2921 shows a normal sinus rhythm rate of 82 borderline T wave abnormalities in diffuse leads and borderline prolonged QT interval. Discharge - Discharge Clinical Impression: Closed intertrochanteric fracture of left femur, Hyperglycemia due to type 1 diabetes mellitus, Addisons disease, Panhypopituitarism Condition: Good Disposition: [facility] Referrals: GURINDER MENG MD [Primary Care Provider] - Follow up as needed I personally performed the services described in the documentation, reviewed and edited the documentation which was dictated to the scribe in my presence, and it accurately records my words and actions.
== END 2019-11-15 15:25 | disposition short-term general hospital (02) ==
LOC: ER 07:04
DX: S72.142A Displaced intertrochanteric fracture of left femur, initial encounter for closed fracture (principal); S50.312A Abrasion of left elbow, initial encounter; W10.8XXA Fall (on) (from) other stairs and steps, initial encounter; Y92.008 Other place in unspecified non-institutional (private) residence as the place of occurrence of the external cause; E10.65 Type 1 diabetes mellitus with hyperglycemia; E27.1 Primary adrenocortical insufficiency; E23.0 Hypopituitarism; Z88.1 Allergy status to other antibiotic agents; I25.10 Atherosclerotic heart disease of native coronary artery without angina pectoris
CPT/HCPCS: 93005; 96376; 99285; 96361; 96374; 96375; 36415; 82962; 80307 ×2; 85025; 85610; 85730; 80053; 81001; 84484; 71045; 73502; 93010; J1200; J1720; J2270; J1170; J2405; J7030